=== PATIENT | male | born 1985 | race Caucasian/White ===

== ENCOUNTER → 2017-02-05 | Outpatient (CLI) | payer OTHER ==
--- NOTE | 2017-02-05 14:12 | REP ---
TWO VIEW CHEST: There is no evidence of acute infiltrate. No pleural effusion is seen. The heart is normal in size. The mediastinal silhouette is unremarkable. The visualized osseous structures are intact. IMPRESSION: No acute pulmonary disease. Signed by Laurent Damon MD 02/05/2017 04:53 P
== END ==
LOC: M WUC 13:30
PROVIDERS: ATTEND Physician Assistant
DX: R05 Cough (principal)

== ENCOUNTER → 2019-09-14 | Outpatient (CLI) | payer OTHER ==
[~2019-09-14] MED LIST: METHACHOLINE KIT (J7674) INH ONE
--- NOTE | 2019-09-14 13:30 | PFTRPT ---
Height: 71.00 Inches Weight: 210.00 Lbs BSA: 2.15 Diagnosis: R06.02 DATE OF PROCEDURE: 09/14/2019 ORDERED BY: Dr. Gordon Simmons Spirometry: Pre and post bronchodilator study of excellent technical quality. Forced vital capacity normal. FEV1 out of proportion. Obstructive index is, therefore, reduced. Flow Volume Loop: Expiratory limb of the flow volume loop does suggest some degree of flow rate limitation. Favorable bronchodilator response is identified. Lung Volumes: Total lung capacity mildly elevated. Residual volume borderline for air trapping. Diffusing Capacity: Diffusing capacity normal. Hemoglobin: No hemoglobin available for correction. Airway Mechanics: Airway resistance and conductance are normal. IMPRESSION: Mild obstructive ventilatory impairment with bronchodilator response. Cannot rule out concomitant degree of air trapping. Please correlate clinically. MTDD
== END ==
LOC: M CARPUL 12:32
PROVIDERS: ATTEND Family Medicine
DX: R06.02 Shortness of breath (principal)
CPT/HCPCS: 88738; 94060; 94726; 94729; J7674

== ENCOUNTER → 2021-07-23 | Outpatient (REF) | payer BC ==
[2021-07-23 16:20] LABS: APPEARANCE, URINE CLEAR (CLEAR); BILIRUBIN, URINE AUTO NEGATIVE (NEGATIVE); BLOOD, URINE BLOOD NEGATIVE (NEGATIVE); COLOR, URINE YELLOW (YELLOW); GLUCOSE, URINE (UA) AUTO NEGATIVE (NEGATIVE); KETONE, URINE AUTO NEGATIVE (NEGATIVE); LEUKOCYTE ESTERASE, URINE AUTO NEGATIVE (NEGATIVE); NITRITE, URINE AUTO NEGATIVE (NEGATIVE); PROTEIN, URINE AUTO NEGATIVE (NEGATIVE); SPECIFIC GRAVITY URINE AUTO 1.028 (1.002-1.035); UROBILINOGEN, URINE AUTO 0.2 mg/dL (0.0-2.0)
[2021-07-23 16:42] LABS: BACTERIA, URINE AUTO NEGATIVE (NEGATIVE); MUCUS, URINE SMALL (NEGATIVE); RBC, URINE AUTO 1 /HPF (0-3); SQUAMOUS EPITHELIAL CELL UR AU 0 /HPF (0-6); WBC, URINE AUTO 0 /HPF (0-3)
[2021-07-23 17:00] LABS: TOTAL PROTEIN,RANDOM URINE 16.7 MG/DL (0.0-12.0)
[2021-07-23 17:04] LABS: BLOOD UREA NITROGEN 19 MG/DL (7-18); CALCIUM LEVEL 9.3 MG/DL (8.5-10.1); CARBON DIOXIDE LEVEL 28 MEQ/L (21-32); CHLORIDE LEVEL 103 MEQ/L (98-107); COMPLEMENT C3 125 MG/DL (90-180); COMPLEMENT C4 32 MG/DL (10-40); CREATININE FOR GFR 0.82 MG/DL (0.70-1.30); GLOMERULAR FILTRATION RATE > 60.0 (>60); GLUCOSE, FASTING 67 MG/DL (70-100); IRON (FE) 94 UG/DL (65-175); MAGNESIUM LEVEL 2.1 MG/DL (1.8-2.4); POTASSIUM SERUM 3.7 MEQ/L (3.5-5.1); SODIUM LEVEL 138 MEQ/L (136-145)
[2021-07-23 17:06] LABS: TOTAL 25(OH) VITAMIN D 19.1 NG/ML (30.0-100.0); VITAMIN B12 LEVEL 859 PG/ML (247-911)
== END ==
LOC: M SFHCRHEU 14:17
PROVIDERS: ATTEND Internal Medicine
DX: R76.8 Other specified abnormal immunological findings in serum (principal)

== ENCOUNTER → 2021-09-30 | Outpatient (CLI) | payer BC ==
[~2021-09-30] MED LIST changes: +BUPR150T12 PO; +BUPR300T92 PO; +FLUT1BLS5 INH; +GUAN1TAB16 PO; -METHACHOLINE KIT (J7674) INH ONE; +VENTAER INH; +VYVA20CA PO
== END ==
LOC: M LABSMTC 09:18
PROVIDERS: ATTEND Anesthesiology
DX: Z01.812 Encounter for preprocedural laboratory examination (principal); Z11.52 Encounter for screening for COVID-19

== ENCOUNTER 2021-10-04 13:01 | Day surgery (SDC) | payer BC ==
[~2021-10-04] VITALS: Ht 182.9 cm; Wt 97.9 kg
[~2021-10-04 13:01] MED LIST changes: +NS 1,000 ML IV ONE
--- OUTSIDE RECORDS SUMMARY | 2021-10-04 13:06 | CCD ---
Author Author [employer] Organization [employer] Address Unknown Phone Unavailable Care Team Providers Care Brim Blocker Name Role Phone Ijeoma Barbosa Unavailable PROBLEMS Type Condition ICD9-CM Code [id number] Code Onset Dates Condition S tatus W/U Status Risk SNOMED Code Notes Problem Paresthesia R20.2 Active confirmed 89428016 Problem Chronic fatigue R53.82 Active confirmed 8422 9002 ALLERGIES Allergen (clinical drug ingredient) Drug/Non Drug Allergy do cumented on EMR Reaction Allergy Type Onset Date Status Enviormental Unknown Non Drug Allergy Active penicillin V Penicillin Unknown Drug Allergy Active penicillin G Penicillin G Sodium([facility] Code:[address]-66) Unknown D rug Allergy Active ENCOUNTERS from 1984 to 2021-08-08 Encounter Location Date Provider Diagnosis [facility] Rheumatology [address] [place] [address] [place] [address] Jul, [facility] Positive ENZO (antinuclear an tibody) R76.8 ; Shoulder pain, unspecified chronicity, unspecified laterality M25.519 ; Neck pain M54.2 ; Chronic fatigue R53.82 and Paresthesia R20.2 IMMUNIZATIONS No Information SOCIAL HISTORY Tobacco Use: Social History Observation Description Date Details (start date - stop date) Never Smoker Sex Assigned At : Social History Observation Description Sex Assigned At Unknown Alcohol Screening: Question Answer Notes Did you have a drink containing alcohol in the past year? No Points 0 Interpretation Negative Tobacco Use: Question Answer Notes Are you a: never smoker REASON FOR REFERRAL from 1984 to 2021-08-08 Reason EMG of bilateral upper extre mities Diagnosis 1 Paresthesia (R20.2) Referral Organization [facility] Rheumatology Referring Provider First Name Ijeoma Referring Provider Last Name [place] Referring Provider Specialty Rheumatology Referred Provider Leslye Duran Referred Provider Specialty Neurology Referral Priority Routine General Notes Elia Guerar 07/26/2021 1:34:51 PM > Referral has been fax with attachments Clinical Notes Ijeoma Barbosa 07/23/2021 2:04 :43 PM > Please perform a EMG of bilateral upper extremities for further investigation of paresthesias. VITAL SIGNS Weight 224.0 lbs Jul, Weight-kg 101.61 kg Jul, Height 70 in Jul, BMI 32.14 kg/m2 Jul, Heart Rate 80 /min Jul, Respiratory Rate 20 /min Jul, Temperature 98.0 degrees Fahrenheit Jul, Oximetry 96 Jul, Blood pressure systolic 126 mm Hg Jul, Blood pressure diastolic 88 mm Hg Jul, MEDICATIONS Medication SIG (Take, Route, Frequency, Duration) Notes Start Da te End Date Status Viagra 100 MG 1 tablet as needed Orally Once a day for 30 day(s) Active ProAir HFA 108 (90 Base) mcg/act 2 puffs as needed Inh alation qid prn for 90 day(s) Active Adderall XR 10 MG 1 capsule in the morning Orally Once a day Active Advair Diskus 250-50 MCG/DOSE 1 puff Inhalation Twice a day Active PROCEDURES No Information RESULTS Component Value Reference Range COMPLEMENT C3 Reviewed date:07/24/2021 19:22:03 Interpretation: Performing Lab:[facility] LABORATORY [address] [facility] [address] , ,[place] [address] COMPLEMENT C3 125 90-180 COMPLEMENT C4 Reviewed date:07/24/2021 19:22:03 Interpretation: Performing Lab:[facility] LABORATORY [address] [address] [facility] [address] , ,[facility] COMPLEMENT C4 32 10-40 IRON (FE) Reviewed date:07/24/2021 19:22:03 Interpretation: Performing Lab:[facility] LABORATORY [address] [facility] [address] , ,[facility] IRON (FE) 94 65-175 Basic Metabolic Profile (BMP) Reviewed date:07/24/2021 19:22:03 Interpretation: Performing Lab:[facility] LABORATORY [address] [place] [address] , ,[place] [address] GLUCOSE, FASTING 67 70-100 BLOOD UREA NITROGEN 19 7-18 CREATININE FOR GFR 0.82 0.70-1.30 GLOMERULAR FILTRATION RATE > 60.0 >60 SODIUM LEVEL 138 136-145 POTASSIUM SERUM 3.7 3.5-5.1 CHLORIDE LEVEL 103 98-107 CARBON DIOXIDE LEVEL 28 21-32 CALCIUM LEVEL 9.3 8.5-10.1 MAGNESIUM LEVEL Reviewed date:07/24/2021 19:22:03 Interpretation: Performing Lab:[facility] LABORATORY [address] [place] [address] , ,[place] [address] MAGNESIUM LEVEL 2.1 1.8-2.4 TSH Reviewed date:07/24/2021 19:22:03 Interpretation: Performing Lab:[facility] LABORATORY [address] [place] [address] , ,[place] [address] THYROID STIMULATING HORMONE 2.070 0.358-3.740 UA URINALYSIS Reviewed date:07/24/2021 19:22:03 Interpretation: Performing Lab:[facility] LABORATORY [address] [place] [address] , ,[place] [address] CREATININE,RANDOM URINE Reviewed date:07/24/2021 19:22:03 Interpretation: Performing Lab:[facility] LABORATORY [address] [place] [address] , ,[place] [address] CREATININE,RANDOM URINE 230.0 TOTAL PROTEIN,RANDOM URINE Reviewed date:07/24/2021 19:22:03 Interpretation: Performing Lab:[facility] LABORATORY [address] [place] [address] , ,[place] [address] TOTAL PROTEIN,RANDOM URINE 16.7 0.0-12.0 VITAMIN B12 LEVEL Reviewed date:07/24/2021 19:22:03 Interpretation: Performing Lab:[facility], [facility] LABORATORY [address] [facility] [address] [facility] [address] , ,[place] [address] VITAMIN B12 LEVEL 871 922-171 REASON FOR VISIT C/o inflammation in the joints. C/o bilateral foot pain. C/o bilateral arm and s houlder joint have a burning sensation. Patient states that "somtimes feels like his joints are itching". MEDICAL (GENERAL) HISTORY Type Description Date Medical History Anxiety disorder Medical History Alcohol dependence, uncomplicated Medical History Abnormal levels of other serum enzymes Medical History Chronic obstructive pulmonary disease, u nspecified Medical History Male erectile dysfunction, unspecified Surgical History None per the patient asked on 07/23/2021 Hospitalization History None per the patient asked on 2020 Goals Section No Information Health Concerns No Information MEDICAL EQUIPMENT No Information MENTAL STATUS No Information FUNCTIONAL STATUS No Information ASSESSMENTS Encounter Date Diagnosis Assessment Notes Treatment Notes Treatm ent Clinical Notes Jul, Positive ENZO (antinuclear antibody) (ICD-10 - R7 6.8) Will perform further investigation of a possible underlying autoimmune disease, given the findings of a positive ENZO (1:160) and fatigue. Based on the symptomatology, physical examination, and current laboratory evaluation, will perform AVISE testing (specialized autoimmune rheumatic disease test) for further evaluation. Will also obtain CBC w/ diff, complement levels (C3, C4, CH50), lupus anticoagulant, urinalysis, and urine protein:creatinine ratio. Jul, Shoulder pain, unspecified c hronicity, unspecified laterality (ICD- 10 - M25.519) Given the significant shoulder pain, will proceed with imaging for further evaluation. Jul, Neck pain (ICD-10 - M54.2) Given the significant cervical spine pain, will proceed with imaging for further evaluation. Jul, Chronic fatigue (ICD-10 - R53.82) Given the significant fatigue, will perform further investigation to evaluate the underlying etiology. Will evaluate for nutritional deficiencies (magnesium, vitamin B12, vitamin D, iron, abnormal thyroid function (TSH), electrolyte abnormalities (BMP). Will consider a sleep study and sleep medicine referral, if appropriate. Jul, Paresthesia (ICD-10 - R20.2) Given the paresthesias of the upper extremities, will perform an EMG for further evaluation. Jul, Other The total time spent on the date of the encounter: 76 minutes PLAN OF TREATMENT Treatment Notes Assessment Notes Clinical Notes Positive ENZO (antinuclear antibody) Will perform further investigation of a possible underlying autoimmune disease, given the findings of a positive ENZO (1:160) and fatigue. Based on the symptomatology, physical examination, and current laboratory evaluation, will perform AVISE testing (specialized autoimmune rheumatic disease test) for further evaluation. Will also obtain CBC w/ diff, complement levels (C3, C4, CH50), lupus anticoagulant, urinalysis, and urine protein:creatinine ratio. Shoulder pain, unspecified chronicity, unspecified lateralit y Given the significant shoulder pain, will proceed with imaging for further evaluation. Neck pain Given the significan t cervical spine pain, will proceed with imaging for further evaluation. Chronic fatigue Given the significan t fatigue, will perform further investigation to evaluate the underlying etiology. Will evaluate for nutritional deficiencies (magnesium, vitamin B12, vitamin D, iron, abnormal thyroid function (TSH), electrolyte abnormalities (BMP). Will consider a sleep study and sleep medicine referral, if appropriate. Paresthesia Given the paresthesi as of the upper extremities, will perform an EMG for further evaluation. Treatment Notes Test Name Order Date COMPLEMENT TOTAL (CH50) 2021-07-23 LUPUS TYPE ANTICOAGULANT SCREE 2021-07-23 MISCELLANEOUS TEST LAB 2021-07-23 [facility] Shoulder, complete 2021-07-23 [facility] SPINE CERVICAL W/AP/FLEX/EXT 2021-07-23 VITAMIN D 25-HYDROXY 2021-07-23 Referrals Referral Date Details EMG of bilateral upper extre mities, Leslye Roger Next Appt Details Provider Name:Ijeoma Barbosa, 2021-08-27 04:45:00 PM, [address] [place] [address], , [place], [address], Insurance Providers Payer Name Payer Address Payer Phone Insured Name Patient Relati onship to Insured Coverage Start Date Coverage End Date ROSALIND THORNTON O [id number] [facility] [place] [facility] CATHI QULIES
--- OUTSIDE RECORDS SUMMARY | 2021-10-04 13:06 | CCD | Continuity of Care Document ---
Author Author Epifanio SIMMONS M.D. Organization Unknown Address [address] [place] [address] Phone [phone] Care Team Providers Care Accounts Payable Assistant Name Role Phone Gordon Simmons M.D. AUTM [phone] [facility] Cardiopulmonary/Sleep Lab AUTM [phone] [facility] Nutrition Services AUTM [phone] Ej Barnhart MD AUTM [phone] [facility] Nurse Practitioners AUTM [facility] Gastroenterology AUTM [phone] [facility] Rheumatology AUTM [phone] Problems Active Problems Provider Date Alcohol dependence, uncomplicated Trenton Thomas PA-C Onset: 05/14/2018 Anxiety state Trenton Thomas PA-C Onset: 05/14/2018 Social History Type Date Description Comments Sex Unknown Tobacco Use Start: Unknown End: Unknown Quit Tobacco Use Start: Unknown Never Smoked Cigars Tobacco Use Start: Unknown Never Smoked A Pipe Tobacco Use Start: Unknown Never Used Smokeless Tobacco ETOH Use Occasionally consumes alcohol Recreational Drug Use Current Drug User occasion al marajana Tobacco Use Start: Unknown End: Unknown Patient is a former smoker Allergies and adverse reactions Active Allergies Criticality Reaction | Severity Comments Date Penicillin G Unable to assess criticality HIVES 04/09/2018 Penicillin Unable to assess criticality Hives | Severe 09/06/2019 Environmental Unable to assess criticality 04/09/2018 NKFA Unable to assess criticality 09/06/2019 NKFA Unable to assess criticality 04/09/2018 NKEA Unable to assess criticality 09/06/2019 Medications Active Medications SIG Qnty Indications Ordering Provide r Date Advair Diskus 250-50mcg/Dose Aeros ol inhale one puff by mouth twice a day 60units J44.9 Gordon jacques MD 11/29/2020 Viagra 100mg Tablets max 1 tab by mouth every day as needed 30-90 min before sexual activity 14tabs N52.1 Gordon Simmons MD 12/01/2019 N52.9 Proair HFA 108(90Base) mcg/Act Aer osol 1-2 puff inhalation q6 rhs as needed 25.5gm J44.9 Gordon Simmons MD 09/06/2019 J45.901 Wellbutrin SR 150mg Tablets ER 12H R 1 by mouth twice a day F41.9 Unknown History Medications Prednisone 20mg Tablets 2 tab by mouth daily for 5 days 10tabs J45.901 Gordon Simmons MD 06/12/2021 - 06/17/2021 Zithromax Z-Ricci 250mg Tablets take 2 tablets by mouth on day one, take one tablet daily for 4 days thereafter 6tabs J45.901 Gordon Simmons MD 06/12/2021 - 06/17/2021 Immunizations Description No Information Available Vital Signs Date Vital Result Comment 02/12/2021 7:30am BP Systolic 128 mmHg BP Diastolic 66 mmHg Heart Rate 78 /min Body Temperature 97.2 F Respiratory Rate 18 /min O2 % BldC Oximetry 96 % Weight 231.00 lb Weight 104.782 kg Height 71 inches 5'11" BMI (Body Mass Index) 32.2 kg/m2 BSA (Body Surface Area) 2.24 m2 01/08/2021 12:58pm BP Systolic 122 mmHg BP Diastolic 80 mmHg Heart Rate 69 /min Body Temperature 96.2 F Respiratory Rate 18 /min O2 % BldC Oximetry 98 % Weight 232.00 lb Weight 105.235 kg Height 71 inches 5'11" BMI (Body Mass Index) 32.4 kg/m2 BSA (Body Surface Area) 2.25 m2 Results Test Acquired Date Facility Test Result H/L Range Note Coronavirus 2019 Nasopharygeal 09/30/2021 [facility] Coronavirus 2019 Nasopharygeal ASSAY INFORMATIO <SEE NOTE> 1 1 ASSAY INFORMATION: Real Time RT-PCR NOTE: The COVID-19 assay has been cleared by the U.S. Food and Drug Administration under the Emergency Use Authorization (EUA). [facility] and [email or web address] are designated as high complexity laboratories by the Clinical Laboratory Improvement Amendments of 1988(CLIA) and are qualified to perform this test. Not Detected Procedures Date Code Description Status 06/12/2021 00683 Office/Outpatient Established Lo w MDM 20-29 Min Completed Medical Devices Description No Information Available Encounters Description No Information Available Assessments Date Code Description Provider 06/12/2021 J06.9 Acute upper respiratory infectio n, unspecified Gordon Simmons MD 06/12/2021 J45.901 Unspecified asthma with (acute) exacerbation Gordon Simmons MD Plan of Treatment Future Appointment(s):* 10/03/2021 3:00 pm - Gordon Simmons MD at [facility] 06/12/2021 - Gordon Simmons MD* J06.9 Acute upper respiratory infection, unspecified* New Labs:* Covid-19, Ordered: 06/12/21 * Comments:* Likely viral. Less likely COVID but will have him checked for COVID infection. Advised to start symptomatic care. He was advised to start Prednisone for 5 days and Zpack. Advised to start using his Albuterol Q4 hrs for next 2 days then as needed. Advised to go to ER for Eval if he does not improve over next few days. He will come in to clinic for COVID screen. He was advised to stay in his vehicle and call us for COVID swab. * J45.901 Unspecified asthma with (acute) exacerbation* New Medication:* Prednisone 20 mg - 2 tab by mouth daily for 5 days * Zithromax Z-Ricci 250 mg - take 2 tablets by mouth on day one, take one tablet daily for 4 days thereafter * Comments:* Likely viral illness affecting his Asthma. Prednisone given to help her breathing. Functional Status Description No Information Available Mental Status Description No Information Available Referrals Description No Information Available
--- OUTSIDE RECORDS SUMMARY | 2021-10-04 13:06 | CCD ---
Author Author [facility] Organization [facility] [employer] Address Unknown Phone Unavailable Care Team Providers Care Machine Icer Name Role Phone Ijeoma Barbosa Unavailable PROBLEMS Type Condition ICD9-CM Code [id number] Code Onset Dates Condition S tatus W/U Status Risk SNOMED Code Notes Problem Paresthesia R20.2 Active confirmed 87739539 Problem Chronic fatigue R53.82 Active confirmed 8422 9000 ALLERGIES Allergen (clinical drug ingredient) Drug/Non Drug Allergy do cumented on EMR Reaction Allergy Type Onset Date Status Enviormental Unknown Non Drug Allergy Active penicillin V Penicillin Unknown Drug Allergy Active penicillin G Penicillin G Sodium([facility] Code:[address]-27) Unknown D rug Allergy Active ENCOUNTERS from 1984 to 2021-09-02 Encounter Location Date Provider Diagnosis [facility] Rheumatology [address] [place] [address] [place] [address] Sep, [facility] IMMUNIZATIONS No Information SOCIAL HISTORY Tobacco Use: [...] you a: never smoker REASON FOR REFERRAL No Information VITAL SIGNS No information MEDICATIONS Medication SIG (Take, Route, Frequency, Duration) [...] a day Active PROCEDURES No Information RESULTS No Results REASON FOR VISIT Missing EMG & xrays MEDICAL (GENERAL) HISTORY Type Description Date Medical [...] No Information FUNCTIONAL STATUS No Information ASSESSMENTS No Information PLAN OF TREATMENT Next Appt Details Provider Name:Ijeoma Barbosa, 2021-10-14 04:15:00 PM, [address] [place] [address], , [place], [place], [facility], Insurance Providers Payer Name Payer Address Payer Phone Insured Name Patient Relati onship to Insured Coverage Start Date Coverage End Date BCBS FAUSTO THORNTON PPO [phone] [facility] [employer] [facility] [place] [address] CATHI QUILES
--- OUTSIDE RECORDS SUMMARY | 2021-10-04 13:06 | CCD | Continuity of Care Document ---
Author Author Epifanio DURAN M.D. Organization Unknown Address [address] [place] [address] Phone [phone] Care Team Providers Care Rivet Hole Machine Operator Name Role Phone Ijeoma Barbosa M.D. AUTM [phone] Gordon Simmons M.D. AUTM [phone] Problems Description No Information Available Social History Type Date Description Comments Sex Unknown Allergies and adverse reactions Description No Information Available Medications Description No Information Available Immunizations Description No Information Available Vital Signs Description No Information Available Results Description No Information Available Procedures Date Code Description Status 09/12/2021 08627 Nerve Conduction 13+ Studies Com pleted 09/12/2021 66708 Needle Electromyogra phy Non Extremity Done With Nerve Conduction Completed 09/12/2021 96113 Needle Electromyogra phy Non Extremity Done With Nerve Conduction Completed 09/12/2021 47641 Needle Electromyography Complete , Five Or More Muscles Studied Completed 09/12/2021 83968 Needle Electromyography Complete , Five Or More Muscles Studied Completed Medical Devices Description No Information Available Encounters Description No Information Available Assessments Date Code Description Provider 09/12/2021 G56.00 Carpal tunnel syndrome, unspecif ied upper limb Leslye Duran M.D. 09/12/2021 M54.12 Radiculopathy, cervical region A jefferson Duran M.D. 09/12/2021 M54.2 Cervicalgia Meliton Smiley 09/12/2021 R20.2 Paresthesia of skin Leslye Duran M.D. Plan of Treatment No Information Available Functional Status Description No Information Available Mental Status Description No Information Available Referrals Description No Information Available
--- OUTSIDE RECORDS SUMMARY | 2021-10-04 13:06 | CCD ---
Author Author [facility] [employer] Organization [facility] [employer] Address Unknown Phone Unavailable Care Team Providers Care Film Reader Name Role Phone Ijeoma Barbosa Unavailable PROBLEMS Type Condition ICD9-CM Code [id number] Code Onset Dates Condition S tatus W/U Status Risk SNOMED Code Notes Problem Paresthesia R20.2 Active confirmed 05226077 Problem Chronic fatigue R53.82 Active confirmed 8422 9007 ALLERGIES Allergen (clinical drug ingredient) Drug/Non Drug Allergy do cumented on EMR Reaction Allergy Type Onset Date Status Enviormental Unknown Non Drug Allergy Active penicillin V Penicillin Unknown Drug Allergy Active penicillin G Penicillin G Sodium([facility] Code:[address]-46) Unknown D rug Allergy Active ENCOUNTERS from 1984 to 2021-08-31 Encounter Location Date Provider Diagnosis [facility] Rheumatology [address] [place] [address] [place] [address] Aug, [facility] IMMUNIZATIONS No Information SOCIAL HISTORY Tobacco Use: [...] Information RESULTS No Results REASON FOR VISIT REFERRAL TO NEUROLOGY MEDICAL (GENERAL) HISTORY Type Description Date Medical [...] TREATMENT Next Appt Details Provider Name:Ijeoma Barbosa, 2021-09-03 04:15:00 PM, [address] [place] [address], , [place], [place], [facility], Insurance Providers Payer Name Payer Address Payer Phone Insured Name Patient Relati onship to Insured Coverage Start Date Coverage End Date BCBS FAUSTO THORNTON O [phone] [facility] [employer] [facility] [place] [address] CATHI QUILES
--- OUTSIDE RECORDS SUMMARY | 2021-10-04 13:06 | CCD ---
Author Author [facility] [employer] Organization [facility] [employer] Address Unknown Phone Unavailable Care Team Providers Care Institutional Commodity Analyst Name Role Phone Ijeoma Barbosa Unavailable PROBLEMS Type Condition ICD9-CM Code [id number] Code Onset Dates Condition S tatus W/U Status Risk SNOMED Code Notes Problem Paresthesia R20.2 Active confirmed 41358955 Problem Chronic fatigue R53.82 Active confirmed 8422 9003 ALLERGIES Allergen (clinical drug ingredient) Drug/Non Drug Allergy do cumented on EMR Reaction Allergy Type Onset Date Status Enviormental Unknown Non Drug Allergy Active penicillin V Penicillin Unknown Drug Allergy Active penicillin G Penicillin G Sodium([facility] Code:[address]-97) Unknown D rug Allergy Active ENCOUNTERS from 1984 to 2021-08-26 Encounter Location Date Provider Diagnosis [facility] Rheumatology [address] [place] [address] [place] [address] Aug, [facility] IMMUNIZATIONS No Information SOCIAL HISTORY Tobacco Use: [...] Information RESULTS No Results REASON FOR VISIT 08/27/2021 Appointment MEDICAL (GENERAL) HISTORY Type Description Date Medical [...] Details Provider Name:Ijeoma Barbosa, 2021-09-03 04:15:00 PM, [address] [place] [address], , [place], [place], [facility], Insurance Providers Payer Name Payer Address Payer Phone Insured Name Patient Relati onship to Insured Coverage Start Date Coverage End Date BCBS FAUSTO THORNTON PPO [phone] [facility] [employer] [facility] [place] [address] CATHI QUILES
--- OUTSIDE RECORDS SUMMARY | 2021-10-04 13:07 | CCD ---
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 Role Phone KENNY MONTEJO MD Unavailable Unavailable KENNY MONTEJO MD Unavailable Unavailable KENNY MONTEJO MD Unavailable Unavailable KENNY MONTEJO MD Unavailable Unavailable KENNY MONTEJO MD Unavailable Unavailable KENNY MONTEJO MD Unavailable Unavailable KENNY MONTEJO MD Unavailable Unavailable KENNY MONTEJO MD Unavailable Unavailable KENNY MONTEJO MD Unavailable Unavailable KENNY MONTEJO MD Unavailable Unavailable KENNY MONTEJO MD Unavailable Unavailable KENNY MONTEJO MD Unavailable Unavailable KENNY MONTEJO MD Unavailable Unavailable KENNY MONTEJO MD Unavailable Unavailable KENNY MONTEJO MD Unavailable Unavailable KENNY MONTEJO MD Unavailable Unavailable KENNY MONTEJO MD Unavailable Unavailable KENNY MONTEJO MD Unavailable Unavailable KENNY MONTEJO MD Unavailable Unavailable KENNY MONTEJO MD Unavailable Unavailable KENNY MOTNEJO MD Unavailable Unavailable KENNY MONTEJO MD Unavailable Unavailable KENNY MONTEJO MD Unavailable Unavailable KENNY MONTEJO MD Unavailable Unavailable KENNY MONTEJO MD Unavailable Unavailable KENNY MONTEJO MD Unavailable Unavailable KENNY MONTEJO MD Unavailable Unavailable KENNY MONTEJO MD Unavailable Unavailable KENNY MONTEJO MD Unavailable Unavailable KENNY MONTEJO MD Unavailable Unavailable KENNY MONTEJO MD Unavailable Unavailable KENNY MONTEJO MD Unavailable Unavailable KENNY MONTEJO MD Unavailable Unavailable MONTEJO, KENNY MD Unavailable Unavailable MONTEJO, KENNY MD Unavailable Unavailable MONTEJO, KENNY MD Unavailable Unavailable MONTEJO, KENNY MD Unavailable Unavailable MONTEJO, KENNY MD Unavailable Unavailable MONTEJO, KENNY MD Unavailable Unavailable MONTEJO, KENNY MD Unavailable Unavailable MONTEJO, KENNY MD Unavailable Unavailable MONTEJO, KENNY MD Unavailable Unavailable MONTEJO, KENNY MD Unavailable Unavailable MONTEJO, KENNY MD Unavailable Unavailable MONTEJO, KENNY MD Unavailable Unavailable MONTEJO, KENNY MD Unavailable Unavailable MONTEJO, KENNY MD Unavailable Unavailable MONTEJO, KENNY MD Unavailable Unavailable MONTEJO, KENNY MD Unavailable Unavailable MONTEJO, KENNY MD Unavailable Unavailable MONTEJO, KENNY MD Unavailable Unavailable MONTEJO, KENNY MD Unavailable Unavailable MONTEJO, KENNY MD Unavailable Unavailable MONTEJO, KENNY MD Unavailable Unavailable MONTEJO, KENNY MD Unavailable Unavailable MONTEJO, KENNY MD Unavailable Unavailable MONTEJO, KENNY MD Unavailable Unavailable MONTEJO, KENNY MD Unavailable Unavailable MONTEJO, KENNY MD Unavailable Unavailable MONTEJO, KENNY MD Unavailable Unavailable MONTEJO, KENNY MD Unavailable Unavailable MONTEJO, KENNY MD Unavailable Unavailable MONTEJO, KENNY MD Unavailable Unavailable MONTEJO, KENNY MD Unavailable Unavailable MONTEJO, KENNY MD Unavailable Unavailable MONTEJO, KENNY MD Unavailable Unavailable MONTEJO, KENNY MD Unavailable Unavailable MONTEJO, KENNY MD Unavailable Unavailable MONTEJO, KENNY MD Unavailable Unavailable MONTEJO, KENNY MD Unavailable Unavailable MONTEJO, KENNY MD Unavailable Unavailable MONTEJO, KENNY MD Unavailable Unavailable TIFFANIE, MAQBOOL PREMA MD Unavailable Unavailable TIFFANIE, MAQBOOL PREMA MD Unavailable Unavailable TIFFANIE, MAQBOOL PREMA MD Unavailable Unavailable TIFFANIE, MAQBOOL PREMA MD Unavailable Unavailable TIFFANIE, MAQBOOL PREMA MD Unavailable Unavailable TIFFANIE, MAQBOOL PREMA MD Unavailable Unavailable TIFFANIE, MAQBOOL PREMA MD Unavailable Unavailable TIFFANIE, MAQBOOL PREMA MD Unavailable Unavailable TIFFANIE, MAQBOOL PREMA MD Unavailable Unavailable TIFFANIE, MAQBOOL PREMA MD Unavailable Unavailable TIFFANIE, MAQBOOL PREMA MD Unavailable Unavailable TIFFANIE, MAQBOOL PREMA MD Unavailable Unavailable TIFFANIE, MAQBOOL PREMA MD Unavailable Unavailable TIFFANIE, MAQBOOL PREMA MD Unavailable Unavailable TIFFANIE, MAQBOOL PREMA MD Unavailable Unavailable TIFFANIE, MAQBOOL PREMA MD Unavailable Unavailable TIFFANIE, MAQBOOL PREMA MD Unavailable Unavailable TIFFANIE, MAQBOOL PREMA MD Unavailable Unavailable TIFFANIE, MAQBOOL PREMA MD Unavailable Unavailable TIFFANIE, MAQBOOL PREMA MD Unavailable Unavailable TIFFANIE, MAQBOOL PREMA MD Unavailable Unavailable TIFFANIE, MAQBOOL PREMA MD Unavailable Unavailable TIFFANIE, MAQBOOL PREMA MD Unavailable Unavailable TIFFANIE, MAQBOOL PREMA MD Unavailable Unavailable TIFFANIE, MAQBOOL PREMA MD Unavailable Unavailable TIFFANIE, MAQBOOL PREMA MD Unavailable Unavailable TIFFANIE, MAQBOOL PREMA MD Unavailable Unavailable TIFFANIE, MAQBOOL PREMA MD Unavailable Unavailable TIFFANIE, MAQBOOL PREMA MD Unavailable Unavailable TIFFANIE, MAQBOOL PREMA MD Unavailable Unavailable TIFFANIE, MAQBOOL PREMA MD Unavailable Unavailable TIFFANIE, MAQBOOL PREMA MD Unavailable Unavailable TIFFANIE, MAQBOOL PREMA MD Unavailable Unavailable TIFFANIE, MAQBOOL PREMA MD Unavailable Unavailable TIFFANIE, MAQBOOL PREMA MD Unavailable Unavailable TIFFANIE, MAQBOOL PREMA MD Unavailable Unavailable TIFFANIE, MAQBOOL PREMA MD Unavailable Unavailable TIFFANIE, MAQBOOL PREMA MD Unavailable Unavailable TIFFANIE, MAQBOOL PREMA MD Unavailable Unavailable TIFFANIE, MAQBOOL PREMA MD Unavailable Unavailable TIFFANIE, MAQBOOL PREMA MD Unavailable Unavailable TIFFANIE, MAQBOOL PREMA MD Unavailable Unavailable TIFFANIE, MAQBOOL PREMA MD Unavailable Unavailable TIFFANIE, MAQBOOL PREMA MD Unavailable Unavailable TIFFANIE, MAQBOOL PREMA MD Unavailable Unavailable TIFFANIE, MAQBOOL PREMA MD Unavailable Unavailable TIFFANIE, MAQBOOL PREMA MD Unavailable Unavailable TIFFANIE, MAQBOOL PREMA MD Unavailable Unavailable TIFFANIE, MAQBOOL PREMA MD Unavailable Unavailable TIFFANIE, MAQBOOL PREMA MD Unavailable Unavailable TIFFANIE, MAQBOOL PREMA MD Unavailable Unavailable TIFFANIE, MAQBOOL PREMA MD Unavailable Unavailable TIFFANIE, MAQBOOL PREMA MD Unavailable Unavailable TIFFANIE, MAQBOOL PREMA MD Unavailable Unavailable TIFFANIE, MAQBOOL PREMA MD Unavailable Unavailable TIFFANIE, MAQBOOL PREMA MD Unavailable Unavailable TIFFANIE, MAQBOOL PREMA MD Unavailable Unavailable TIFFANIE, MAQBOOL PREMA MD Unavailable Unavailable TIFFANIE, MAQBOOL PREMA MD Unavailable Unavailable TIFFANIE, MAQBOOL PREMA MD Unavailable Unavailable TIFFANIE, MAQBOOL PREMA MD Unavailable Unavailable TIFFANIE, MAQBOOL PREMA MD Unavailable Unavailable TIFFANIE, MAQBOOL PREMA MD Unavailable Unavailable TIFFANIE, MAQBOOL PREMA MD Unavailable Unavailable TIFFANIE, MAQBOOL PREMA MD Unavailable Unavailable TIFFANIE, MAQBOOL PREMA MD Unavailable Unavailable TIFFANIE, MAQBOOL PREMA MD Unavailable Unavailable TIFFANIE, MAQBOOL PREMA MD Unavailable Unavailable TIFFANIE, MAQBOOL PREMA MD Unavailable Unavailable TIFFANIE, MAQBOOL PREMA MD Unavailable Unavailable TIFFANIE, MAQBOOL PREMA MD Unavailable Unavailable TIFFANIE, MAQBOOL PREMA MD Unavailable Unavailable TIFFANIE, MAQBOOL PREMA MD Unavailable Unavailable TIFFANIE, MAQBOOL PREMA MD Unavailable Unavailable TIFFANIE, MAQBOOL PREMA MD Unavailable Unavailable TIFFANIE, MAQBOOL PREMA MD Unavailable Unavailable TIFFANIE, MAQBOOL PREMA MD Unavailable Unavailable TIFFANIE, MAQBOOL PREMA MD Unavailable Unavailable TIFFANIE, MAQBOOL PREMA MD Unavailable Unavailable Christine BLAND MD Unavailable Unavailable Christine BLAND MD Unavailable Unavailable Christine BLAND MD Unavailable Unavailable Christine BLAND MD Unavailable Unavailable Christine BLAND MD Unavailable Unavailable Christine BLAND MD Unavailable Unavailable Christine BLAND MD Unavailable Unavailable Christine BLAND MD Unavailable Unavailable Christine BLAND MD Unavailable Unavailable Christine BLAND MD Unavailable Unavailable Christine BLAND MD Unavailable Unavailable Christine BLAND MD Unavailable Unavailable EDWINAChristine SR MD Unavailable Unavailable Christine BLAND MD Unavailable Unavailable EDWINAChristine SR MD Unavailable Unavailable EDWINAChristine SR MD Unavailable Unavailable Christine BLAND MD Unavailable Unavailable EDWINAChristine SR MD Unavailable Unavailable EDWINAChristine SR MD Unavailable Unavailable Christine BLAND MD Unavailable Unavailable Re-disclosure Warning The records that you are about to access may contain information from federally-assisted alcohol or drug abuse programs. If such information is present, then the following federally mandated warning applies: This information has been disclosed to you from records protected by federal confidentiality rules (42 CFR part 2). The federal rules prohibit you from making any further disclosure of this information unless further disclosure is expressly permitted by the written consent of the person to whom it pertains or as otherwise permitted by 42 CFR part 2. A general authorization for the release of medical or other information is NOT sufficient for this purpose. The Federal rules restrict any use of the information to criminally investigate or prosecute any alcohol or drug abuse patient.The records that you are about to access may contain highly sensitive health information, the redisclosure of which is protected by Article 27-F of the [facility] Public Health law. If you continue you may have access to information: Regarding HIV / AIDS; Provided by facilities licensed or operated by the [facility] Office of Mental Health; or Provided by the [facility] Office for People With Developmental Disabilities. If such information is present, then the following [facility] mandated warning applies: This information has been disclosed to you from confidential records which are protected by state law. State law prohibits you from making any further disclosure of this information without the specific written consent of the person to whom it pertains, or as otherwise permitted by law. Any unauthorized further disclosure in violation of state law may result in a fine or care home sentence or both. A general authorization for the release of medical or other information is NOT sufficient authorization for further disc losure. Family History Family Member Name Family Member Gender Family Member Status Date o f Status Description Data Source(s) Unknown Unknown Problem [facility] ([facility]) Encounters Encounter Providers Location Date Indications Data Source(s ) Outpatient Attender: KENNY MONTEJO MDConsultant: KENNY King MD 10/03/2021 02:45:00 PM EST - 10/03/2021 02:45:00 PM EST [facility] Outpatient Attender: KENNY MONTEJO MD Family Practice 10/03/2021 0 2:00:00 PM EST [facility] ([facility]) [place] [id number] [facility] [place] [address] 09/02/2021 12:00:00 AM EDT eCW1 ([facility]) Unknown [id number] [facility] [facility] [address] 08/26/2021 12:00:00 AM EDT eCW1 ([facility]) Unknown [address] [facility] [address] 08/22/2021 12:00:00 AM EDT eCW1 ([facility]) Outpatient [id number] [facility] [address] 07/23/2021 12:00:00 AM EDT eCW1 ([facility]) Emergency Attender: ROSELINE BLAND MDConsultant: KENNY King MD 07/20/2021 03:33:00 PM EDT - 07/20/2021 04:13:00 PM EDT [facility] Patient discharged. Outpatient Attender: KENNY MONTEJO MDConsultant: KENNY King MD 06/12/2021 09:02:00 AM EDT - 06/12/2021 09:02:00 AM EDT [facility] Outpatient Attender: KENNY MONTEJO MD Family Practice 06/12/2021 0 9:00:00 AM EDT [facility] ([facility]) Outpatient Attender: KENNY MONTEJO MDConsultant: KENNY King MD 02/12/2021 07:22:00 AM EDT - 02/12/2021 07:22:00 AM EDT [facility] Outpatient Attender: KENNY MONTEJO MD Family Practice 02/12/2021 0 7:20:00 AM EDT [facility] ([facility]) Outpatient Attender: KENNY MONTEJO MDConsultant: KENNY King MD 01/08/2021 12:54:00 PM EST - 01/08/2021 12:54:00 PM EST [facility] Outpatient Attender: KENNY MONTEJO MD Family Practice 01/08/2021 1 2:00:00 PM EST [facility] ([facility]) Outpatient Attender: KENNY MONTEJO MDConsultant: KENNY King MD 12/25/2020 07:24:00 AM EST - 12/25/2020 08:24:00 AM EST [facility] Outpatient Attender: KENYN MONTEJO MDConsultant: KENNY King MD 12/24/2020 07:59:00 AM EST - 12/24/2020 07:59:00 AM [facility] Outpatient Attender: KENNY MONTEJO MD Family Practice 12/24/2020 0 7:00:00 AM EST [facility] ([facility]) Outpatient Attender: PREMA BARNHART MD [facility] 11/14 01:45:00 PM EST [facility] (Prema Barnhart MD) Outpatient Attender: KENNY MONTEJO MDConsultant: KENNY King MD 10/31/2020 10:27:00 AM EST - 10/31/2020 10:27:00 AM [facility] Medications Medication Brand Name Start Date Product Form Dose Route Admi nistrative Instructions Pharmacy Instructions Status Indications Reaction Description Data Source(s) 2 mg 09/25/2021 12:00:00 AM EST tablet extended release 24 hr 30 TAKE ONE TABLET BY MOUTH AT BEDTIME TAKE ONE TABLET BY MOUTH AT BEDTIME SOLD: 09/27/2021 [facility] 30 mg 09/25/2021 12:00:00 AM EST capsule 30 TAKE ONE CAPSULE BY MOUTH EVERY MORNING - MAXIMUM DAILY DOSE = 1 TAKE ONE CAPSULE BY MOUTH EVERY MORNING - MAXIMUM DAILY DOSE = 1 SOLD: 09/27/2021 [facility] Citric Acid 75 MG/ML / Magnesium Oxide 2 1.9 MG/ML / picosulfate sodium 0.0625 MG/ML Oral Solution [Clenpiq] 10 mg-3.5 gram -12 gram/160 mL SOD PICOSULF/MAG OX/CITRIC AC 09/13/2021 12:00:00 AM EST solution 320 F OLLOW PRE-PROCEDURE INSTRUCTIONS, START DAY BEFORE PROCEDURE FOLLOW PRE-PROCEDURE INSTRUCTIONS, START DAY BEFORE PROCEDURE SOLD: 09/13/2021 [facility] 1 mg 09/12/2021 12:00:00 AM EST tablet extended release 24 hr 30 TAKE ONE TABLET BY MOUTH AT BEDTIME TAKE ONE TABLET BY MOUTH AT BEDTIME SOLD: 09/13/2021 [facility] 30 mg 09/12/2021 12:00:00 AM EST capsule 14 TAKE ONE CAPSULE BY MOUTH EVERY MORNING MAXIMUM DAILY DOSE = 1 TAKE ONE CAPSULE BY MOUTH EVERY MORNING MAXIMUM DAILY DOSE = 1 SOLD: 09/13/2021 [facility] 20 mg 08/29/2021 12:00:00 AM EDT capsule 14 TAKE ONE CAPSULE BY MOUTH EVERY MORNING MAXIMUM DAILY DOSE = 1 TAKE ONE CAPSULE BY MOUTH EVERY MORNING MAXIMUM DAILY DOSE = 1 SOLD: 08/30/2021 [facility] 250-50 mcg/dose 08/26/2021 12:00:00 AM EDT blister with gely ce 60 INHALE ONE PUFF BY MOUTH TWICE A DAY INHALE ONE PUFF BY MOUTH TWICE A DAY SOLD: 08/26/2021 [facility] 40 mg 08/15/2021 12:00:00 AM EDT capsule 14 TAKE ONE CAPSULE BY MOUTH EVERY MORNING MAXIMUM DAILY DOSE = 1 TAKE ONE CAPSULE BY MOUTH EVERY MORNING MAXIMUM DAILY DOSE = 1 SOLD: 08/17/2021 [facility] 1 mg 08/15/2021 12:00:00 AM EDT tablet extended release 24 hr 30 TAKE ONE TABLET BY MOUTH AT BEDTIME TAKE ONE TABLET BY MOUTH AT BEDTIME SOLD: 08/17/2021 [facility] 24 HR Amphetamine aspartate 3.75 MG / Am phetamine Sulfate 3.75 MG / Dextroamphetamine saccharate 3.75 MG / Dextroamphetamine Sulfate 3.75 MG Extended Release Oral Capsule 15 mg DEXTROAMPHETAMINE/AMPHETAMINE 07/26/2021 12:00:00 AM EDT capsule,extended release 24hr 14 TA KE ONE CAPSULE BY MOUTH EVERY MORNING MAXIMUM DAILY DOSE = 1 TAKE ONE CAPSULE BY MOUTH EVERY MORNING MAXIMUM DAILY DOSE = 1 SOLD: 07/27/2021 [facility] 5 mg/gram (0.5 %) 07/20/2021 12:00:00 AM EDT ointment 3 APPLY A SMALL AMOUNT INTO LEFT EYE THREE TIMES A DAY DIRECTED APPLY A SMALL AMOUNT INTO LEFT EYE THREE TIMES A DAY DIRECTED SOLD: 07/27/2021 [facility] 24 HR Amphetamine aspartate 2.5 MG / Amp hetamine Sulfate 2.5 MG / Dextroamphetamine saccharate 2.5 MG / Dextroamphetamine Sulfate 2.5 MG Extended Release Oral Capsule 10 mg DEXTROAMPHETAMINE/AMPHETAMINE 07/12/2021 12:00:00 AM EDT capsule,extended release 24hr 14 TA KE ONE CAPSULE BY MOUTH EVERY MORNING - MAXIMUM DAILY DOSE = 1 CAPSULE TAKE ONE CAPSULE BY MOUTH EVERY MORNING - MAXIMUM DAILY DOSE = 1 CAPSULE SOLD: 07/13/2021 [facility] 250 mg 06/12/2021 12:00:00 AM EDT tablet 6 TAKE TWO TABLETS BY MOUTH AT ONCE ON THE FIRST DAY THEN TAKE ONE DAILY THEREAFTER TAKE TWO TABLETS BY MOUTH AT ONCE ON THE FIRST DAY THEN TAKE ONE DAILY THEREAFTER SOLD: 06/12/2021 [facility] 20 mg 06/12/2021 12:00:00 AM EDT tablet 10 TAKE TWO TABLETS BY MOUTH EVERY DAY FOR 5 DAYS TAKE TWO TABLETS BY MOUTH EVERY DAY FOR 5 DAYS SOLD: 021 [facility] Zithromax Z-Ricci Zithromax Z-Ricci 06/12/2021 12:00:00 AM EDT ORAL completed [facility] ([facility]) Prednisone 20 MG Oral Tablet Prednisone 06/12/2021 12:00:00 AM EDT ORAL completed [facility] ([facility]) 24 HR Bupropion Hydrochloride 300 MG Extended Release Oral T ablet BUPROPION HCL 03/14/2021 12:00:00 AM EDT tablet extended release 24 hr 30 TAKE ONE TABLET BY MOUTH EVERY MORNING TAKE ONE TABLET BY MOUTH EVERY MORNING SOLD: 07/27/2021 [facility] 24 HR Bupropion Hydrochloride 300 MG Extended Release Oral T ablet BUPROPION HCL 03/14/2021 12:00:00 AM EDT tablet extended release 24 hr 30 TAKE ONE TABLET BY MOUTH EVERY MORNING TAKE ONE TABLET BY MOUTH EVERY MORNING SOLD: 06/27/2021 [facility] 24 HR Bupropion Hydrochloride 300 MG Extended Release Oral T ablet BUPROPION HCL 03/14/2021 12:00:00 AM EDT tablet extended release 24 hr 30 TAKE ONE TABLET BY MOUTH EVERY MORNING TAKE ONE TABLET BY MOUTH EVERY MORNING SOLD: 04/17/2021 [facility] 24 HR Bupropion Hydrochloride 300 MG Extended Release Oral T ablet BUPROPION HCL 03/14/2021 12:00:00 AM EDT tablet extended release 24 hr 30 TAKE ONE TABLET BY MOUTH EVERY MORNING TAKE ONE TABLET BY MOUTH EVERY MORNING SOLD: 03/18/2021 [facility] 24 HR Bupropion Hydrochloride 300 MG Extended Release Oral T ablet BUPROPION HCL 03/14/2021 12:00:00 AM EDT tablet extended release 24 hr 30 TAKE ONE TABLET BY MOUTH EVERY MORNING TAKE ONE TABLET BY MOUTH EVERY MORNING SOLD: 05/20/2021 [facility] 24 HR Bupropion Hydrochloride 150 MG Extended Release Oral T ablet BUPROPION HCL 02/13/2021 12:00:00 AM EDT tablet extended release 24 hr 30 TAKE ONE TABLET BY MOUTH EVERY MORNING COMBINE WITH 300MG TABLET FOR DAILY DOSE OF 450MG TAKE ONE TABLET BY MOUTH EVERY MORNING COMBINE WITH 300MG TABLET FOR DAILY DOSE OF 450MG SOLD: 06/27/2021 [facility] 24 HR Bupropion Hydrochloride 150 MG Extended Release Oral T ablet BUPROPION HCL 02/13/2021 12:00:00 AM EDT tablet extended release 24 hr 30 TAKE ONE TABLET BY MOUTH EVERY MORNING COMBINE WITH 300MG TABLET FOR DAILY DOSE OF 450MG TAKE ONE TABLET BY MOUTH EVERY MORNING COMBINE WITH 300MG TABLET FOR DAILY DOSE OF 450MG SOLD: 04/17/2021 [facility] 24 HR Bupropion Hydrochloride 150 MG Extended Release Oral T ablet BUPROPION HCL 02/13/2021 12:00:00 AM EDT tablet extended release 24 hr 30 TAKE ONE TABLET BY MOUTH EVERY MORNING COMBINE WITH 300MG TABLET FOR DAILY DOSE OF 450MG TAKE ONE TABLET BY MOUTH EVERY MORNING COMBINE WITH 300MG TABLET FOR DAILY DOSE OF 450MG SOLD: 02/17/2021 [facility] 24 HR Bupropion Hydrochloride 150 MG Extended Release Oral T ablet BUPROPION HCL 02/13/2021 12:00:00 AM EDT tablet extended release 24 hr 30 TAKE ONE TABLET BY MOUTH EVERY MORNING COMBINE WITH 300MG TABLET FOR DAILY DOSE OF 450MG TAKE ONE TABLET BY MOUTH EVERY MORNING COMBINE WITH 300MG TABLET FOR DAILY DOSE OF 450MG SOLD: 07/27/2021 [facility] 24 HR Bupropion Hydrochloride 150 MG Extended Release Oral T ablet BUPROPION HCL 02/13/2021 12:00:00 AM EDT tablet extended release 24 hr 30 TAKE ONE TABLET BY MOUTH EVERY MORNING COMBINE WITH 300MG TABLET FOR DAILY DOSE OF 450MG TAKE ONE TABLET BY MOUTH EVERY MORNING COMBINE WITH 300MG TABLET FOR DAILY DOSE OF 450MG SOLD: 05/20/2021 [facility] 24 HR Bupropion Hydrochloride 150 MG Extended Release Oral T ablet BUPROPION HCL 02/13/2021 12:00:00 AM EDT tablet extended release 24 hr 30 TAKE ONE TABLET BY MOUTH EVERY MORNING COMBINE WITH 300MG TABLET FOR DAILY DOSE OF 450MG TAKE ONE TABLET BY MOUTH EVERY MORNING COMBINE WITH 300MG TABLET FOR DAILY DOSE OF 450MG SOLD: 03/18/2021 [facility] 250-50 mcg/dose 02/12/2021 12:00:00 AM EDT blister with gely ce 60 INHALE ONE PUFF BY MOUTH TWICE A DAY INHALE ONE PUFF BY MOUTH TWICE A DAY SOLD: 03/18/2021 [facility] 250-50 mcg/dose 02/12/2021 12:00:00 AM EDT blister with gely ce 60 INHALE ONE PUFF BY MOUTH TWICE A DAY INHALE ONE PUFF BY MOUTH TWICE A DAY SOLD: 04/25/2021 [facility] 250-50 mcg/dose 02/12/2021 12:00:00 AM EDT blister with gely ce 60 INHALE ONE PUFF BY MOUTH TWICE A DAY INHALE ONE PUFF BY MOUTH TWICE A DAY SOLD: 02/13/2021 [facility] 1 % 02/08/2021 12:00:00 AM EDT cream 30 APPLY TO AFFECTED AREA(S) ON FACE TWO TIMES A DAY NEEDED APPLY TO AFFECTED AREA(S) ON FACE TWO TI MES A DAY NEEDED SOLD: 02/10/2021 [facility] Ketoconazole 20 MG/ML Medicated Shampoo KETOCONAZOLE 01/17/20 12:00:00 AM EDT shampoo 120 SHAMPOO DAILY UNTIL SCALP IS CLEAR, THEN USE 2 TO 3 TIMES PER WEEK FOR MAINTENANCE SHAMPOO DAILY UNTIL SCALP IS CLEAR, THEN USE 2 TO 3 TIMES PER WEEK FOR MAINTENANCE SOLD: 01/17/2021 [facility] 1 % 01/16/2021 12:00:00 AM EDT gel 60 APPLY TOPICALLY TO FACE SPARINGLY ONCE DAILY APPLY TOPICALLY TO FACE SPARINGLY ONCE DAILY SOLD: 01/17/2021 [facility] 250-50 mcg/dose 11/30/2020 12:00:00 AM EST blister with gely ce 60 INHALE ONE PUFF BY MOUTH TWICE A DAY INHALE ONE PUFF BY MOUTH TWICE A DAY SOLD: 12/04/2020 [facility] 60 ACTUAT Fluticasone propionate 0.25 MG /ACTUAT / salmeterol 0.05 MG/ACTUAT Dry Powder Inhaler [Advair] Advair Disk[facility] 11/29/2020 12:00:00 AM EST ORAL active [facility] ([facility]) 45-21 mcg/actuation 11/28/2020 12:00:00 AM EST HFA aerosol i nhaler 12 INHALE ONE PUFF BY MOUTH TWICE A DAY INHALE ONE PUFF BY MOUTH TWICE A DAY SOLD: 11/29/2020 [facility] 24 HR Bupropion Hydrochloride 300 MG Extended Release Oral T ablet BUPROPION HCL 08/29/2020 12:00:00 AM EDT tablet extended release 24 hr 30 TAKE ONE TABLET BY MOUTH EVERY MORNING COMBINE WITH 150MG TABLET FOR DAILY DOSE OF 450MG TAKE ONE TABLET BY MOUTH EVERY MORNING COMBINE WITH 150MG TABLET FOR DAILY DOSE OF 450MG SOLD: 12/16/2020 [facility] 24 HR Bupropion Hydrochloride 300 MG Extended Release Oral T ablet BUPROPION HCL 08/29/2020 12:00:00 AM EDT tablet extended release 24 hr 30 TAKE ONE TABLET BY MOUTH EVERY MORNING COMBINE WITH 150MG TABLET FOR DAILY DOSE OF 450MG TAKE ONE TABLET BY MOUTH EVERY MORNING COMBINE WITH 150MG TABLET FOR DAILY DOSE OF 450MG SOLD: 01/17/2021 [facility] 24 HR Bupropion Hydrochloride 300 MG Extended Release Oral T ablet BUPROPION HCL 08/29/2020 12:00:00 AM EDT tablet extended release 24 hr 30 TAKE ONE TABLET BY MOUTH EVERY MORNING COMBINE WITH 150MG TABLET FOR DAILY DOSE OF 450MG TAKE ONE TABLET BY MOUTH EVERY MORNING COMBINE WITH 150MG TABLET FOR DAILY DOSE OF 450MG SOLD: 10/16/2020 [facility] 24 HR Bupropion Hydrochloride 300 MG Extended Release Oral T ablet BUPROPION HCL 08/29/2020 12:00:00 AM EDT tablet extended release 24 hr 30 TAKE ONE TABLET BY MOUTH EVERY MORNING COMBINE WITH 150MG TABLET FOR DAILY DOSE OF 450MG TAKE ONE TABLET BY MOUTH EVERY MORNING COMBINE WITH 150MG TABLET FOR DAILY DOSE OF 450MG SOLD: 09/15/2020 [facility] 24 HR Bupropion Hydrochloride 300 MG Extended Release Oral T ablet BUPROPION HCL 08/29/2020 12:00:00 AM EDT tablet extended release 24 hr 30 TAKE ONE TABLET BY MOUTH EVERY MORNING COMBINE WITH 150MG TABLET FOR DAILY DOSE OF 450MG TAKE ONE TABLET BY MOUTH EVERY MORNING COMBINE WITH 150MG TABLET FOR DAILY DOSE OF 450MG SOLD: 11/14/2020 [facility] 24 HR Bupropion Hydrochloride 300 MG Extended Release Oral T ablet BUPROPION HCL 08/29/2020 12:00:00 AM EDT tablet extended release 24 hr 30 TAKE ONE TABLET BY MOUTH EVERY MORNING COMBINE WITH 150MG TABLET FOR DAILY DOSE OF 450MG TAKE ONE TABLET BY MOUTH EVERY MORNING COMBINE WITH 150MG TABLET FOR DAILY DOSE OF 450MG SOLD: 02/17/2021 [facility] 24 HR Bupropion Hydrochloride 300 MG Extended Release Oral T ablet BUPROPION HCL 08/29/2020 12:00:00 AM EDT tablet extended release 24 hr 18 TAKE ONE TABLET BY MOUTH EVERY MORNING COMBINE WITH 150MG TABLET FOR DAILY DOSE OF 450MG TAKE ONE TABLET BY MOUTH EVERY MORNING COMBINE WITH 150MG TABLET FOR DAILY DOSE OF 450MG SOLD: 08/29/2020 [facility] 25 mg 08/16/2020 12:00:00 AM EDT tablet 90 TAKE ONE TABLET BY MOUTH THREE TIMES A DAY NEEDED TAKE ONE TABLET BY MOUTH THREE TIMES A DAY NEEDED S OLD: 11/14/2020 [facility] 24 HR Bupropion Hydrochloride 150 MG Extended Release Oral T ablet BUPROPION HCL 08/16/2020 12:00:00 AM EDT tablet extended release 24 hr 30 TAKE ONE TABLET BY MOUTH EVERY MORNING IN COMBINATION WITH 300MG TABLETS FOR DAILY DOSE OF 450MG TAKE ONE TABLET BY MOUTH EVERY MORNING IN COMBINATION WITH 300MG TABLETS FOR DAILY DOSE OF 450MG SOLD: 08/16/2020 [facility] 24 HR Bupropion Hydrochloride 150 MG Extended Release Oral T ablet BUPROPION HCL 08/16/2020 12:00:00 AM EDT tablet extended release 24 hr 30 TAKE ONE TABLET BY MOUTH EVERY MORNING IN COMBINATION WITH 300MG TABLETS FOR DAILY DOSE OF 450MG TAKE ONE TABLET BY MOUTH EVERY MORNING IN COMBINATION WITH 300MG TABLETS FOR DAILY DOSE OF 450MG SOLD: 10/16/2020 [facility] 24 HR Bupropion Hydrochloride 150 MG Extended Release Oral T ablet BUPROPION HCL 08/16/2020 12:00:00 AM EDT tablet extended release 24 hr 30 TAKE ONE TABLET BY MOUTH EVERY MORNING IN COMBINATION WITH 300MG TABLETS FOR DAILY DOSE OF 450MG TAKE ONE TABLET BY MOUTH EVERY MORNING IN COMBINATION WITH 300MG TABLETS FOR DAILY DOSE OF 450MG SOLD: 12/16/2020 [facility] 25 mg 08/16/2020 12:00:00 AM EDT tablet 90 TAKE ONE TABLET BY MOUTH THREE TIMES A DAY NEEDED TAKE ONE TABLET BY MOUTH THREE TIMES A DAY NEEDED S OLD: 10/16/2020 [facility] 25 mg 08/16/2020 12:00:00 AM EDT tablet 90 TAKE ONE TABLET BY MOUTH THREE TIMES A DAY NEEDED TAKE ONE TABLET BY MOUTH THREE TIMES A DAY NEEDED S OLD: 01/17/2021 [facility] 24 HR Bupropion Hydrochloride 150 MG Extended Release Oral T ablet BUPROPION HCL 08/16/2020 12:00:00 AM EDT tablet extended release 24 hr 18 TAKE ONE TABLET BY MOUTH EVERY MORNING IN COMBINATION WITH 300MG TABLETS FOR DAILY DOSE OF 450MG TAKE ONE TABLET BY MOUTH EVERY MORNING IN COMBINATION WITH 300MG TABLETS FOR DAILY DOSE OF 450MG SOLD: 08/30/2020 [facility] 25 mg 08/16/2020 12:00:00 AM EDT tablet 90 TAKE ONE TABLET BY MOUTH THREE TIMES A DAY NEEDED TAKE ONE TABLET BY MOUTH THREE TIMES A DAY NEEDED S OLD: 08/16/2020 [facility] 24 HR Bupropion Hydrochloride 150 MG Extended Release Oral T ablet BUPROPION HCL 08/16/2020 12:00:00 AM EDT tablet extended release 24 hr 30 TAKE ONE TABLET BY MOUTH EVERY MORNING IN COMBINATION WITH 300MG TABLETS FOR DAILY DOSE OF 450MG TAKE ONE TABLET BY MOUTH EVERY MORNING IN COMBINATION WITH 300MG TABLETS FOR DAILY DOSE OF 450MG SOLD: 09/15/2020 [facility] 24 HR Bupropion Hydrochloride 150 MG Extended Release Oral T ablet BUPROPION HCL 08/16/2020 12:00:00 AM EDT tablet extended release 24 hr 30 TAKE ONE TABLET BY MOUTH EVERY MORNING IN COMBINATION WITH 300MG TABLETS FOR DAILY DOSE OF 450MG TAKE ONE TABLET BY MOUTH EVERY MORNING IN COMBINATION WITH 300MG TABLETS FOR DAILY DOSE OF 450MG SOLD: 01/17/2021 [facility] 24 HR Bupropion Hydrochloride 150 MG Extended Release Oral T ablet BUPROPION HCL 08/16/2020 12:00:00 AM EDT tablet extended release 24 hr 30 TAKE ONE TABLET BY MOUTH EVERY MORNING IN COMBINATION WITH 300MG TABLETS FOR DAILY DOSE OF 450MG TAKE ONE TABLET BY MOUTH EVERY MORNING IN COMBINATION WITH 300MG TABLETS FOR DAILY DOSE OF 450MG SOLD: 11/14/2020 [facility] 25 mg 08/16/2020 12:00:00 AM EDT tablet 90 TAKE ONE TABLET BY MOUTH THREE TIMES A DAY NEEDED TAKE ONE TABLET BY MOUTH THREE TIMES A DAY NEEDED S OLD: 02/17/2021 [facility] 25 mg 08/16/2020 12:00:00 AM EDT tablet 90 TAKE ONE TABLET BY MOUTH THREE TIMES A DAY NEEDED TAKE ONE TABLET BY MOUTH THREE TIMES A DAY NEEDED S OLD: 12/16/2020 [facility] 25 mg 08/16/2020 12:00:00 AM EDT tablet 90 TAKE ONE TABLET BY MOUTH THREE TIMES A DAY NEEDED TAKE ONE TABLET BY MOUTH THREE TIMES A DAY NEEDED S OLD: 09/15/2020 [facility] 120 ACTUAT Fluticasone propionate 0.045 MG/ACTUAT / salmeterol 0.021 MG/ACTUAT Metered Dose Inhaler [Advair] 45-21 mcg/actuation FLUTICASONE PROPION/SALMETEROL 06/20/2020 12:00:00 AM EDT HFA aerosol inhaler 12 INHALE ONE PUFF BY MOUTH TWICE A DAY INHALE ONE PUFF BY MOUTH TWICE A DAY SOLD: 06/10/2021 [facility] Insurance Providers Payer name Policy type / Coverage type Policy ID Covered republican ID Covered republican's relationship to crockett Policy Crockett Plan Information POMCO U [id number] Self [id number] LIF[employer]IME BENEFIT SOLUTIONS U [id number] Self [id number] [facility] [address] [place] [address] [facility] -[facility]/P [id number] 01 [id number] [facility]inationRX [facility] UNAVAILABLE 01 UNA[place] [facility] [id number] [place] [id number] [facility] [id number] 1 [id number] [facility] [address] [place] [address] LIFETIME BENEFIT SOLUTIONS [id number] SP [id number] [facility] INSURANCE -O/P [id number] Lifetime Benefit Solution Medigap Part B [id number] Self [id number] [employer] [id number] POM[employer] [id number] SP [id number] Lifetime Benefit Solution Medigap Part B [id number] Self [employer] Commercial [id number] Self POMCO COMM SELF [id number] S [id number] [employer] PPO O [id number] S [id number] LIF[employer]IME BENEFIT SOLUTIONS COMM [id number] S [id number] SELF PAY SP UNAVAILABLE S UNAVAILA BLE [place] PPO [id number] [id number] [facility] MEDICAL CLAIMS [id number] SP [id number] [facility] [place] [id number] 01 [id number] [employer] [place] PPO 302/307 [id number] [place] [id number] Problems, Conditions, and Diagnoses Code Display Name Description Problem Type Effective Dates Data Source(s) V68[address] of occurrence of the external cause Truck as the place of occurrence of the external cause Diagnosis 07/20/2021 03:33:00 PM EDT [facility] [id number] Striking against or struck by other obje cts, initial encounter Striking against or struck by other objects, initial encounter Diagnosis 07/20/2021 03:33:00 PM [facility] [id number] Injury of conjunctiva and co rneal abrasion without foreign body, left eye, initial encounter Injury of conjunctiva and corneal abrasi on without foreign body, left eye, initial encounter Diagnosis 07/20/2021 03:33:0 [facility] Ocular pain, left eye Ocular pain, left eye Diagnosis 07/20/2021 03:33:00 PM EDT [facility] J449 Chronic obstructive pulmonary disease, u nspecified Chronic obstructive pulmonary disease, unspecified Diagnosis 01/08/2021 12:54:00 PM EST [facility] K921 Melena Melena Diagnosis 01/08/2021 12:54:00 PM [facility] R748 Abnormal levels of other serum enzymes A bnormal levels of other serum enzymes Diagnosis 01/08/2021 12:54:00 PM [facility] K219 Gastro-esophageal reflux disease without esophagitis Gastro-esophageal reflux disease without esophagitis Diagnosis 12/25/2020 07:24:00 AM ES T [facility] [id number] Right upper quadrant abdominal tendernes s Right upper quadrant abdominal tenderness Diagnosis 12/25/2020 07:24:00 AM [facility] L309 Dermatitis, unspecified Dermatitis, unspecified Diagno sis 12/24/2020 07:59:00 AM [facility] F1210 Cannabis abuse, uncomplicated Cannabis abuse, uncompli cated Diagnosis 10/31/2020 10:27:00 AM [facility] R079 Chest pain, unspecified Chest pain, unspecified Diagno sis 10/31/2020 10:27:00 AM [facility] R53.82 [id number] Chronic fatigue Problem 07/23/2021 12:00:00 AM EDT eCW1 ([facility]) R20.2 [id number] Paresthesia Problem 07/23/2021 12:00:00 AM E DT eCW1 ([facility]) Surgeries/Procedures Procedure Description Date Indications Data Source(s) OFFICE OUTPATIENT VISIT 15 MINUTES 10/03/2021 12:00:00 AM EST [facility] ([facility]) Needle electromyography, each extremity, with related paraspinal areas, when performed, done with nerve conduction, amplitude and latency/velocity study; complete, five or more muscles studied, innervated by three or more nerves or four or more spinal levels (list separately in addition to the code for primary procedure). 09/12/2021 12:00:00 AM EST MEDEN T ([facility], ) Needle electromyography, each extremity, with related paraspinal areas, when performed, done with nerve conduction, amplitude and latency/velocity study; complete, five or more muscles studied, innervated by three or more nerves or four or more spinal levels (list separately in addition to the code for primary procedure). 09/12/2021 12:00:00 AM EST MED[facility] T ([facility]) Needle Electromyography Non Extremity Done With Nerve Conduc tion 09/12/2021 12:00:00 AM EST [facility] ([facility] ) Needle Electromyography Non Extremity Done With Nerve Conduc tion 09/12/2021 12:00:00 AM EST [facility] ([facility]) [address] Nerve conduction studies 13 or more studies NEW 201209/12/2021 12:00:00 AM EST [facility] ([facility]) OFFICE OUTPATIENT VISIT 15 MINUTES 06/12/2021 12:00:00 AM EDT [facility] ([facility]) OFFICE OUTPATIENT VISIT 15 MINUTES 02/12/2021 12:00:00 AM EDT [facility] ([facility]) OFFICE OUTPATIENT VISIT 15 MINUTES 01/08/2021 12:00:00 AM EST [facility] ([facility]) OFFICE OUTPATIENT VISIT 15 MINUTES 12/24/2020 12:00:00 AM EST [facility] ([facility]) ECG ROUTINE ECG W/LEAST 12 LDS W/I&R 11/14/2020 12:00: 00 AM EST [facility] (Pre[facility]) CV STRS TST XERS&/OR RX CONT ECG PHYS SI&R 11/14/2020 12:00:00 AM EST [facility] ([facility]) ECHO TTHRC R-T 2D W/WOM-MODE COMPL SPEC&COLR DOP 11/14 12:00:00 AM EST [facility] ([facility]) Brief Emotional/Behav Assessment W/ Scoring Doc Per Standard Inst 10/31/2020 12:00:00 AM EST [facility] ([facility]) Results ID Date Data Source [id number] 10/03/2021 03:13:00 PM EST [facility] ([facility]) Name Value Range Interpretation Code Description Data Shona rce(s) Supporting Document(s) Cholesterol [Mass/volume] in Serum or Plasma Laboratory test result [facility] ([facility]) Cholesterol.total/Cholesterol in HDL [Molar ratio] in Serum or Plasma Laboratory test result [facility] ([facility]) High Density Lipoprotein Laboratory test result [facility] ([facility]) Cholesterol in LDL/Cholesterol in HDL [Mass Ratio] in Serum or Plasma Laboratory test result [facility] ([facility]) Cholesterol in LDL [Mass/volume] in Serum or Plasma Laboratory test result [facility] ([facility]) Triglyceride [Mass/volume] in Serum or Plasma Laboratory test result [facility] ([facility]) ID Date Data Source [id number] 10/03/2021 03:13:00 PM EST [facility] ([facility]) Name Value Range Interpretation Code Description Data Shona rce(s) Supporting Document(s) Specific gravity of Urine Laboratory test result [facility] ([facility]) pH of Urine by Test strip Laboratory test result [facility] ([facility]) Color of Urine Laboratory test result [facility] ([facility]) Appearance of Urine Laboratory test result [facility] ([facility]) Leukocytes [#/area] in Urine sediment by Microscopy hi gh power field Laboratory test result [facility] ([facility]) Protein [Presence] in Urine by Test strip Laboratory test result [facility] ([facility]) Glucose [Presence] in Urine Laboratory test result [facility] ([facility]) Ketones [Presence] in Urine by Test strip Laboratory test result [facility] ([facility]) Bilirubin.total [Presence] in Urine by Test strip Laboratory test res ult [facility] ([facility]) Urobilinogen [Mass/volume] in Urine by Test strip Laboratory test res ult [facility] ([facility]) Nitrite [Presence] in Urine by Test strip Laboratory test result [facility] ([facility]) Ua Occult Blood Laboratory test result [facility] ([facility]) ID Date Data Source [id number] 10/03/2021 03:13:00 PM EST [facility] ([facility]) Name Value Range Interpretation Code Description Data Shona rce(s) Supporting Document(s) Thyrotropin [Units/volume] in Serum or Plasma Laboratory test result [facility] ([facility]) Thyroxine (T4) free [Mass/volume] in Serum or Plasma Laboratory carol t result [facility] ([facility]) ID Date Data Source [id number] 10/03/2021 03:13:00 PM EST [facility] ([facility]) Name Value Range Interpretation Code Description Data Shona rce(s) Supporting Document(s) Z#Other Observations Laboratory test result [facility] ([facility]) ID Date Data Source [id number] 10/03/2021 03:13:00 PM EST [facility] ([facility]) Name Value Range Interpretation Code Description Data Shona rce(s) Supporting Document(s) Leukocytes [#/volume] in Blood by Automated count Laboratory test res ult [facility] ([facility]) Erythrocytes [#/volume] in Blood by Automated count Laboratory test result [facility] ([facility]) Hemoglobin [Mass/volume] in Blood Laboratory test result [facility] ([facility]) Hematocrit [Volume Fraction] of Blood by Automated count Lab oratory test result [facility] ([facility]) Erythrocyte mean corpuscular volume [Entitic volume] b y Automated count Laboratory test result [facility] ([facility]) Erythrocyte mean corpuscular hemoglobin [Entitic mass] by Automated count Laboratory test result [facility] ([facility]) Erythrocyte mean corpuscular hemoglobin concentration [Mass/volume] by Automated count Laboratory test result [facility] ([facility]) Platelets [#/volume] in Blood by Automated count Laboratory test resu lt [facility] ([facility]) Erythrocyte distribution width [Ratio] by Automated co unt Laboratory test result [facility] ([facility]) Platelet mean volume [Entitic volume] in Blood by Brett Villalobos Laboratory test result [facility] ([facility]) Neutrophils Laboratory test result M EDENT ([facility]) Band form neutrophils/100 leukocytes in Body fluid by Manual count Laboratory test result [facility] ([facility]) Lymphocytes/100 leukocytes in Body fluid by Manual count Lab oratory test result [facility] ([facility]) Monocytes Laboratory test result [facility] ([facility]) Eosinophils/100 leukocytes in Body fluid by Manual count Lab oratory test result [facility] ([facility]) Basophils/100 leukocytes in Blood Laboratory test result [facility] ([facility]) Basophils [#/volume] in Blood by Automated count Laboratory test resu lt [facility] ([facility]) Eosinophils [#/volume] in Blood by Automated count Laboratory test re sult [facility] ([facility]) Lymphocytes [#/volume] in Blood Laboratory test result [facility] ([facility]) Monocytes [#/volume] in Blood Laboratory test result [facility] ([facility]) Neutrophils [#/volume] in Blood by Automated count Laboratory test re sult [facility] ([facility]) ID Date Data Source [id number] 09/30/2021 09:25:00 AM EST [facility] ([facility]) Name Value Range Interpretation Code Description Data Shona rce(s) Supporting Document(s) Laboratory test finding (navigational concept) Laboratory test result [facility] ([facility]) ASSAY INFORMATION: Real Time RT-PCR NOTE: The COVID-19 assay has been cleared by the U.S. Food and Drug Administration under the Emergency Use Authorization (EUA). [employer] and [facility] are designated as high complexity laboratories by the Clinical Laboratory Improvement Amendments of 1988(CLIA) and are qualified to perform this test. Not Detected ID Date Data Source [id number] 09/30/2021 09:25:00 AM EST [facility] Name Value Range Interpretation Code Description Data Shona rce(s) Supporting Document(s) SARS-CoV-2 (COVID-19) RNA [Presence] in Respiratory specimen by DAV with probe detection Not Detected [facility] This lab was ordered by [facility] and reported by [employer] ID Date Data Source VITAMIN B12 LEVEL 07/23/2021 12:00:00 AM EDT eCW1 ([facility]) Name Value Range Interpretation Code Description Data Shona rce(s) Supporting Document(s) 407 647-200 VITAMIN B12 LEVEL eCW1 ([facility]) ID Date Data Source TOTAL PROTEIN,RANDOM URINE 07/23/2021 12:00:00 AM EDT eCW1 ( [facility]) Name Value Range Interpretation Code Description Data Shona rce(s) Supporting Document(s) 16.7 0.0-12.0 TOTAL PROTEIN,RANDOM URIN E eCW1 ([facility]) ID Date Data Source CREATININE,RANDOM URINE 07/23/2021 12:00:00 AM EDT eCW1 ([facility]) Name Value Range Interpretation Code Description Data Shona rce(s) Supporting Document(s) 230.0 CREATININE,RANDOM URINE eCW1 ( [facility]) ID Date Data Source UA URINALYSIS 07/23/2021 12:00:00 AM EDT eCW1 ([facility]) Name Value Range Interpretation Code Description Data Shona rce(s) Supporting Document(s) UA URINALYSIS eCW1 ([facility]) ID Date Data Source TSH 07/23/2021 12:00:00 AM EDT eCW1 ([facility]) Name Value Range Interpretation Code Description Data Shona rce(s) Supporting Document(s) 2.070 0.358-3.740 THYROID STIMULATING HORM ONE eCW1 ([facility]) ID Date Data Source MAGNESIUM LEVEL 07/23/2021 12:00:00 AM EDT eCW1 ([facility]) Name Value Range Interpretation Code Description Data Shona rce(s) Supporting Document(s) 2.1 1.8-2.4 MAGNESIUM LEVEL eCW1 ([facility]) ID Date Data Source Basic Metabolic Profile (BMP) 07/23/2021 12:00:00 AM EDT eCW 1 ([facility]) Name Value Range Interpretation Code Description Data Shona rce(s) Supporting Document(s) 19 7-18 BLOOD UREA NITROGEN eCW1 ([facility]) 67 70-100 GLUCOSE, FASTING eCW1 ([facility]) > 60.0 >60 GLOMERULAR FILTRATION RATE eCW 1 ([facility]) 138 136-145 SODIUM LEVEL eCW1 ([facility]) 0.82 0.70-1.30 CREATININE FOR GFR eCW1 ([facility]) 103 98-107 CHLORIDE LEVEL eCW1 ([facility]) 3.7 3.5-5.1 POTASSIUM SERUM eCW1 ([facility]) 28 21-32 CARBON DIOXIDE LEVEL eCW1 ([facility]) 9.3 8.5-10.1 CALCIUM LEVEL eCW1 ([facility]) ID Date Data Source IRON (FE) 07/23/2021 12:00:00 AM EDT eCW1 ([facility]) Name Value Range Interpretation Code Description Data Shona rce(s) Supporting Document(s) 94 65-175 IRON (FE) eCW1 ([facility]) ID Date Data Source COMPLEMENT C4 07/23/2021 12:00:00 AM EDT eCW1 ([facility]) Name Value Range Interpretation Code Description Data Shona rce(s) Supporting Document(s) 32 10-40 COMPLEMENT C4 eCW1 ([facility]) ID Date Data Source COMPLEMENT C3 07/23/2021 12:00:00 AM EDT eCW1 ([facility]) Name Value Range Interpretation Code Description Data Shona rce(s) Supporting Document(s) 125 90-180 COMPLEMENT C3 eCW1 ([facility]) ID Date Data Source [id number] 07/20/2021 03:33:00 PM EDT [facility] 1 OrderSheet [facility] Emergency Department [address] [place] [address] Phone #: [phone]- [phone] 07/20/2021 15:22 Patient: NIMISHA QUILES Sex: M : 1985 Age: 36yWEIGHT:104.3 kg (S) HEIGHT:72 inches (S) BMI:31.2ALLERGIES: PenicillinsCHIEF COMPLAINT: redness, irritationLAB ORDERSOrder Description Priority Entered Acknowledged InitialedDIAGNOSTIC STUDY ORDERSOrder Description Priority Entered Acknowledged InitialedMEDICATION/IV/DRIP/FLUID ORDERSOrder Description Priority Entered Acknowledged InitialedErythromycin Eye 16:03 07/20/2021 16:10 Devaughn Michelle 1 Cr LEPE; Liliana EspitiaplicationGENERAL ORDERSOrder Description Priority Entered Acknowledged Initialed[Electronically signed by Liliana Michelle RN (16:58 07/20/2021)][Electronically signed by Cr Summers (17:16 07/20/2021)][Electronically locked by Liliana Michelle RN (16:58 07/20/2021)] Name Value Range Interpretation Code Description Data Shona rce(s) Supporting Document(s) ID Date Data Source [id number] 07/20/2021 03:33:00 PM EDT [facility] 1 Medication Reconciliation Report [facility] Emergency Department [address] [place] [address] Phone #: [phone] 07/20/2021 15:22 Patient: NIMISHA QUILES Sex: M : 1985 Age: 36yWeight: 104.3 kgHeight/Length: 72 in.BMI: 31.2ALLERGIES: PenicillinsThe patient's Home Medications are listed below:CONTINUE TAKING THE FOLLOWING MEDICATIONS: Adderall Oral 10 mg, dailyThe source(s) of the original Home Medication information:Not obtained.The following Medications were given to the patient in the Emergency Department:Erythromycin [Eye Ointment] Eye Ointment 1 application, administered: 16:10 07/20/2021The following Medications were prescribed to the patient:erythromycin 5 mg/gram (0.5 %) eye ointment Apply a small amount three times a day as directed for 7days -- Dispense 3.5 gram. Refills: 0. Substitution permitted. Note to Pharmacy - USE Rx DISCOUNTCARD: $14.3, BIN:[id number], PCN:CORRY, Group:EMR, ID:[id number].Pharmacy - [facility] - [address] [facility] ; [place], [place] [id number]. . -- SHERLEY Fitzpatrick Name Value Range Interpretation Code Description Data Shona rce(s) Supporting Document(s) ID Date Data Source [id number] 07/20/2021 03:33:00 PM EDT [facility] 1 Medication Administration Record [facility] Emergency Department [address] [place] [address] Phone #: [phone] 07/20/2021 15:22 Patient: NIMISHA QUILES Sex: M : 1985 Age: 36yWeight: 104.3 kgHeight/Length: 72 inBMI: 31.2ALLERGIES: Penicillins Date/Time Medication Administered Medication OrderedGiven ERYTHROMYCIN [EYE OINTMENT] Erythromycin Eye Ointment 116:10 07/20/2021 Dose: 1 application Eye Ointment Liliana Patel RN Name Value Range Interpretation Code Description Data Shona rce(s) Supporting Document(s) ID Date Data Source [id number] 07/20/2021 03:33:00 PM EDT [facility] 1 General Instructions [facility] Emergency Department [address] [place] [address] Phone #: [phone]- [phone] 07/20/2021 15:22 Patient: NIMISHA QUILES Sex: M : 1985 Age: 36y(conjunctival abrasion L eye).INSTRUCTIONSNo strenuous activity until better. Do not work for two days.Do not smoke. No alcohol.Warnings: Further evaluation is necessary. It is very important to follow up with a healthcare provider.GENERAL WARNINGS: Return or contact your ph ysician immediately if your condition worsens orchanges unexpectedly, if not improving as expected, or if other problems arise. worsening L eyesymptoms.Your Current Medications: Your current home medications have been reviewed.CONTINUE TAKING THE FOLLOWING MEDICATIONS:Adderall Oral : 10 mg daily.Prescription Medications:erythromycin 5 mg/gram (0.5 %) eye ointment Apply a small amount three times a day as directed for 7days -- Dispense 3.5 gram. Refills: 0. Substitution permitted. Note to Pharmacy - USE Rx DISCOUNTCARD: $14.3, BIN:[id number], PCN:CORRY, Group:EMR, ID:[id number].Pharmacy - [facility] - [address] ; [place], [place] [phone]. .Understanding of the discharge instructions verbalized by patient. Expected course of injury, dischargeinstructions, activity level, prescriptions x1, follow-up appointment and risks and benefits of treatmentreviewed with patient and understanding verbalized. Agrees to plan of care.Follow-up with: [facility], , , [address] [place] [address], , [place], [address] Follow up in two days even if well. Call for the next available appointment. Reason for referral:evaluation. Summary of care provided to patient via paper.No strenuous activity until better. Do not work for two days. 2 General Instructions [facility] Emergency Department [address] [place] [address] Phone #: ext- [phone] 07/20/2021 15:22 Patient: NIMISHA QUILES Sex: M : 1985 Age: 36y(Electronically signed by SHERLEY Fitzpatrick 07/20/2021 17:16) Name Value Range Interpretation Code Description Data Shona rce(s) Supporting Document(s) ID Date Data Source [id number] 07/20/2021 03:33:00 PM EDT [facility] 1 Clinical Report - Nurses [facility] Emergency Department [address] [place] [address] Phone #: [phone] 07/20/2021 15:22 Patient: NIMISHA QUILES Sex: M : 1985 Age: 36yTRIAGEArrived by private vehicle. Historian: patient. Accompanied by family.Acuity: LEVEL 2.Chief Complaint: FOREIGN BODY TO LEFT EYE.Alert. No acute distress.Onset. (2 hours ago). ( PT was working on his truck and a metal shard popped off into his left eye. He isunsure if its still in his eye. HE tried using visine which did not help.). He has had eye discomfort. 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 SEPSIS SCREEN NEGATIVE. No suspected or confirmedsigns of infection present.CHRISTIN COMA SCORE: 15- eyes open- spontaneous (4); best verbal response- oriented (5); bestmotor response- obeys commands (6). --15:33 07/20/21 Milagros Ward R.N.15:27 07/20/21. BP: 134/91. HR: 84. RR: 16. O2 saturation: 98%. Temp: 98.7 F. Pain level now 5/10.--15:33 07/20/21 Milagros Ward R.N.Weight: 104.3 kg stated. Height/Length: 72 inches Per Patient. BMI: 31.2. --15:31 07/20/21 Milagros Ward R.N.MedicationsAdderall Oral 10 mg, daily. --15:30 07/20/21 Milagros Ward R.N.AllergiesPenicillins. --15:30 07/20/21 Milagros Ward R.N.PROBLEMS:ADHD - Attention Deficit Hyperactivity Disorder. --15:31 07/20/21 Milagros Ward R.N.ADDITIONAL SURGERIES:Fatty tumor removal. --15:31 07/20/21 Milagros Ward R.N.HistoryPAST MEDICAL HX: Immunizations: up-to-date. 2 Clinical Report - Nurses [facility] Emergency Department [address] [place] [address] Phone #: ext- [phone] 07/20/2021 15:22 Patient: NIMISHA QUILES Sex: M : 1985 Age: 36y SOCIAL HX: Never smoker. Drug use: marijuana. Recently used drugs yesterday. No alcohol use. He was offered HIV testing but declined and hepatitis C testing but declined. He has not traveled outside the [place] Infectious disease exposure: The patient was not exposed to C-diff, MRSA, VRE, CRE or Coronavirus. SELF HARM ASSESSMENT: Self harm assessment was performed. The patient answered "no" to the question(s) "Have you recently felt down, depressed, or hopeless?", "Do you have thoughts of harming or killing yourself?", "Do you have a plan for harming or killing yourself?", "Have you recently had thoughts about harming or killing others?", "Do you have any dangerous items in your possession?", "Have you noticed less interest or pleasure in doing things?", "Are you here because you tried to hurt yourself?" and "Have you ever tried to hurt yourself before today?". ABUSE ASSESSMENT: No report of abuse. NUTRITIONAL RISK ASSESSMENT: The nutritional risk assessment revealed no deficiencies. FUNCTIONAL ASSESSMENT: Functional assessment: no impairments noted. LEARNING NEEDS ASSESSMENT: The learning needs assessment revealed no barriers. FALL RISK ASSESSMENT: Fall risk assessment completed. No risk factors identified. SKIN INTEGRITY ASSESSMENT: Skin integrity risk assessment completed. No skin integrity risk identified. --15:33 07/20/21 Milagros Ward R.N. Interventions Identification and allergy band on patient. To treatment room. --15:33 07/20/21 Ward, Milagros, R.N.PHYSICAL [id number]:45 07/20/21. Ambulatory to room.GENERAL / NEURO / PSYCH: Alert. Appears in no acute distress. Pupillary exam: (L eye red andirritated, difficult to open).HEENT: No facial asymmetry noted.RESPIRATORY: Respirations not labored.SKIN: Skin is warm and dry. --16:57 07/20/21 Liliana Michelle RN.NURSING PROGRESS NOTES15:45 07/20/21. Reassurance given. Two patient identifiers checked. Bed placed in lowest position.Brakes of bed on. --16:57 07/20/21 Liliana Michelle RN 16:10 07/20/2021 Erythromycin Eye Ointment 1 application given. Given in the left eye. Allergies verified and confirmed 5 rights. Information reviewed with patient including reason for taking this medication. Verbalizes understanding. --16:10 07/20/21 Liliana Michelle RN. 3 Clinical Report - Nurses [facility] Emergency Department [address] [place] [address] Phone #: ext- [phone] 07/20/2021 15:22 Patient: NIMISHA QIULES Sex: M : 1985 Age: 36yDISPOSITION / DISCHARGE 16:07 07/20/21. BP: 129/81. HR: 78. RR: 16. O2 saturation: 99%. Temp: 98.0 F. --16:08 07/20/21 [facility] Tech, JUVE Barker Tech1 Departure time: 16:13 07/20/2021. --16:13 07/20/21 Liliana Michelle RN 16:13 07/20/21. Pain level now: 12/12. --16:58 07/20/21 Liliana Michelle RN.Locked/Released at 07/20/2021 16:58 by Liliana Michelle RN Name Value Range Interpretation Code Description Data Shona rce(s) Supporting Document(s) ID Date Data Source [id number] 07/20/2021 03:33:00 PM EDT [facility] 1 Clinical Report - Physicians/Mid Levels [facility] Emergency Department [address] [place] [address] Phone #: ext- [phone] 07/20/2021 15:22 Patient: NIMISHA QUILES Sex: M : 1985 Age: 36y Time Seen: 15:36 07/20/2021. Arrived- By private vehicle. Historian- patient. Disposition decision: 16:06 07/20/2021.HISTORY OF PRESENT ILLNESS Chief Complaint: EYE REDNESS and IRRITATION. This started today, involves the left eye and is characterized as moderate in severity. 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 metal, L eye irritation, FB sensation, redness, photophobia. The patient may have sustained an injury. Mechanism- ? FB L eye. Not injured from contact lenses. No direct trauma to the eyes. No chemical exposure. Did not occur at home. Eye discomfort, burning, redness and irritation. Photophobia. No decreased vision or loss of vision. Patient denies injury to the head, face or neck.REVIEW OF SYSTEMSNo fever, sore throat or cough.PAST HISTORYSee nurses notes. Problems: ADHD - Attention Deficit Hyperactivity Disorder. Additional Surgeries: Fatty tumor removal. Medications: Adderall Oral 10 mg, daily. Allergies: Penicillins.SOCIAL HISTORYNever smoker. Drug use: marijuana. No alcohol use.ADDITIONAL NOTESThe nursing notes have been reviewed with agreement regarding the chief complaint, HPI, ROS, PMH andpatient medications and allergies.PHYSICAL EXAMVital Signs: 07/20/2021 15:27 BP: 134/91. MAP: 105. HR: 84. RR: 16. O2 saturation: 98%. Temp: 98.7 F.Have been reviewed as abnormal and appear to be correct. Hypertensive. Mean arterial pressure-normal. Heart rate normal. Respiratory rate normal. Temperature normal. Oxygen saturation normal.Eyes: Visual acuity noted- see nurse's notes. Left eyelid everted for examination. Left cornea examined 2 Clinical Report - Physicians/[facility] Emergency Department [address] [place] [address] Phone #: ext- [phone] 07/20/2021 15:22 Patient: NIMISHA QUILES Sex: M : 1985 Age: 36y with fluorescein stain. Eyelids appear normal to inspection. Corneas appear normal to inspection. Pupils equal, round and reactive to light. Accommodation normal. EOMs intact. Periorbital areas appear normal to inspection. Rt Eye: Right eye exam normal. Lt Eye: Left eye exam normal. Mild conjunctival edema. Conjunctival injury: small abrasion localized to the medial aspect of the conjunctiva. No corneal foreign body or abrasion or fluorescein dye uptake.PROGRESS AND PROCEDURESDisposition: Discharged home in good and improved condition.Discharge decision based on the following: patient's condition is improved; patient is ambulatory; patient isactive; patient's pain is controlled; patient's exam is stable; improving condition on repeat evaluation; socialsupport is adequate; transportation is available; follow-up is available; clinical impression is consistent withoutpatient treatment.CLINICAL IMPRESSION (conjunctival abrasion L eye).INSTRUCTIONS No strenuous activity until better. Do not work for two days. Do not smoke. No alcohol. Warnings: Further evaluation is necessary. It is very important to follow up with a healthcare provider. GENERAL WARNINGS: Return or contact your physician immediately if your condition worsens or changes unexpectedly, if not improving as expected, or if other prob lems arise. worsening L eye symptoms. Your Current Medications: Your current home medications have been reviewed. CONTINUE TAKING THE FOLLOWING MEDICATIONS: Adderall Oral : 10 mg daily. Prescription Medications: erythromycin 5 mg/gram (0.5 %) eye ointment Apply a small amount three times a day as directed for 7 days -- Dispense 3.5 gram. Refills: 0. Substitution permitted. Note to Pharmacy - USE Rx DISCOUNT CARD: $14.3, BIN:[id number], PCN:[id number], Group:[id number], ID:[id number]. Pharmacy - [id number] - [address] [facility] ; [place], [place] [id number]. . Understanding of the discharge instructions verbalized by patient. Expected course of injury, discharge instructions, activity level, prescriptions x1, follow-up appointment and risks and benefits of treatment reviewed with patient and understanding verbalized. Agrees to plan of care. 3 Clinical Report - Physicians/Mid Levels [facility] Emergency Department [address] [place] [address] Phone #: ext- [phone] 07/20/2021 15:22 Patient: NIMISHA QUILES Sex: M : 1985 Age: 36y Follow-up with: [facility], , , [address] [place] [address], [place], [address] Follow up in two days even if well. Call for the next available appointment. Reason for referral: evaluation. Summary of care provided to patient via paper.(Electronically signed by SHERLEY Fitzpatrick 07/20/2021 17:16) Name Value Range Interpretation Code Description Data Shona rce(s) Supporting Document(s) ID Date Data Source [id number] 05/08/2021 12:00:00 AM EDT [facility] Name Value Range Interpretation Code Description Data Shona rce(s) Supporting Document(s) SARS coronavirus 2 Ag Rapid test result: Negative [facility] and [facility] by [facility]. ID Date Data Source [id number] 01/08/2021 02:05:00 PM EST [facility] ([facility]) Name Value Range Interpretation Code Description Data Shona rce(s) Supporting Document(s) Sed Rate 2 mm/hr 0-15 [facility] ([facility]) Sed Rate Reenter 2 [facility] ([facility]) ID Date Data Source [id number] 01/08/2021 02:05:00 PM EST [facility] ([facility]) Name Value Range Interpretation Code Description Data Shona rce(s) Supporting Document(s) Sjogren's Anti-SS-A Laboratory test result 0.0-0.9 [facility] ([facility]) Sjogren's Anti-SS-B Laboratory test result 0.0-0.9 [facility] ([facility]) Guerra Antibodies 0.2 AI 0.0-0.9 [facility] ([facility]) COMMUNITY EDUCATION SPECIALIST Antibodies 0.5 AI 0.0-0.9 [facility] ([facility]) Anti-Dna (DS) Ab Qn 6 IU/ml 0-9 [facility] ([facility]) <content>Negative <5</content>
<content>Equivocal 5 - 9</content>
<content>Positive >9</content>
<content></content> ID Date Data Source [id number] 01/08/2021 02:05:00 PM EST [facility] ([facility]) Name Value Range Interpretation Code Description Data Shona rce(s) Supporting Document(s) Laboratory test finding (navigational concept) Laboratory test r esult Abnormal (applies to non-numeric results) [facility] ([facility]) <content>Negative <1:80</content>
<content>Borderline 1:80</content>
<content>Positive >1:80</content>
<content></content> Laboratory test finding (navigational concept) Laboratory test r esult Above high normal [facility] ([facility]) Note: Laboratory test result [facility] ([facility]) A positive ENZO result may occur in healt hy individuals (low titer) or be associated with a variety of diseases. See interpretation chart which is not all inclusive: Pattern Antigen Detected Suggested Disease Association --------- Homogeneous DNA(ds,ss), SLE - High titers Nucleosomes, Histones Drug-induced SLE --------- Speckled Sm, COMMUNITY EDUCATION SPECIALIST, SCL-70, SLE,MCTD,PSS (diffuse form), SS-A/SS-B Sjogrens --------- Nucleolar SCL-70, PM-1/SCL High titers Scleroderma, PM/DM --------- Centromere Centromere PSS (limited form) w/Crest syndrome variable --------- Nuclear Dot Sp100,[id number] Primary Biliary Cirrhosis --------- Nuclear GP210, Primary Biliary Cirrhosis Membrane freda A,B,C --------- ID Date Data Source [id number] 01/11/2021 07:26:00 AM EST [facility] Name Value Range Interpretation Code Description Data Shona rce(s) Supporting Document(s) Nuclear Ab [Titer] in Serum by Immunofluorescence Positive A [facility] Negative <1:80 Borderline 1:80 Positive >1:80 Nuclear Ab Pattern Homogenous [Titer] in Serum 1:160 H [facility] Note: COMMENT [facility] A positive ENZO result may occur in healt hy individuals (lowtiter) or be associated with a variety of diseases. Seeinterpretation chart which is not all inclusive:Pattern Antigen Detected Suggested Disease Association Homogeneous DNA(ds,ss), SLE - High titers Nucleosomes, Histones Drug-induced SLE Speckled Sm, COMMUNITY EDUCATION SPECIALIST, SCL-70, SLE,MCTD,PSS (diffuse form), SS-A/SS-B Sjogrens Nucleolar SCL-70, PM-1/SCL High titers Scleroderma, PM/DM Centromere Centromere PSS (limited form) w/Crest syndrome variable Nuclear Dot Sp100,[id number] Primary Biliary Cirrhosis Nuclear GP210, Primary Biliary CirrhosisMembrane freda A,B,C ID Date Data Source [id number] 01/11/2021 07:14:00 AM [facility] Name Value Range Interpretation Code Description Data Shona rce(s) Supporting Document(s) Sjogrens syndrome-A extractable nuclear Ab [Units/volume] in Serum <0.2 AI 0.0-0.9 [facility] Sjogrens syndrome-B extractable nuclear Ab [Units/volume] in Serum <0.2 AI 0.0-0.9 [facility] Ribonucleoprotein extractable nuclear Ab [Units/volume] in Serum 0.5 AI 0.0-0.9 [facility] Guerra extractable nuclear Ab [Units/volume] in Serum 0.2 AI 0.0-0 .9 [facility] DNA double strand Ab [Units/volume] in Serum 6 IU/mL 0-9 [facility] Negative <5 Equivocal 5 - 9 Positive >9 ID Date Data Source [id number] 01/08/2021 10:13:00 PM [facility] Name Value Range Interpretation Code Description Data Shona rce(s) Supporting Document(s) Erythrocyte sedimentation rate by Westergren method 2 mm/hr 0 - 15 [facility] SED RATE REENTER 2 [facility] ID Date Data Source [id number] 12/25/2020 06:15:00 PM [facility] [address] [place] [address] PHONE: [phone] FAX: [phone] Name .................. : GALE Mosher Acct Number.................. : [id number] ROOM. ................. : Number ................... : [id number] Stay type ............. : O/P Discharge Date......... ... : 12/25/20 Admit Date ......... : 12/25/20 Admit Phys .................... : MONTEJO HARD Date of ....... : 1985 Family Phys ................... : [employer] HARD Phone .................. : [phone] Age ................................ : 35 Film# .................. .:[id number] Sex ................................. : M Unsigned transcriptions are preliminary reports and do not represent a medical or legal document GALLBLADDER [id number] COMPLETE:12/25/20 07:48 KNB 4897 (REASON FOR ABDOMEN: RUQ PAIN GALLBLADDER ULTRASOUND, 12/25/20: FINDINGS: Fatty infiltration of the liver is seen without hepatic mass or biliary dilatation. There is mild hepatomegaly. There is a small area of fatty sparing is seen at liver parenchyma adjacent to the gallbladder fossa. Gallstone, gallbladder sludge, gallbladder wall thickening, or pericholecystic fluid is not seen. Common bile duct is within normal limits measuring 2.4 mm. Pancreas was obscured by overlying bowel gas. Mass, hydronephrosis, or calculus is not seen in the right kidney, which measured 12.2 x 5.1 x 5.9 cm. Ascites not seen. IMPRESSION: Fatty liver and mild hepatomegaly. Small focus of focal fatty sparing seen in liver parenchyma adjacent to gallbladder fossa. Non-visualization of the pancreas due to overlying bowel gas. Otherwise unremarkable right upper quadrant ultrasonography. Electronically Reviewed and Signed By Sophie Kong MD , 12/25/20 18:15, KGEbony Transcribe Initials: SSR, Transcribe Date: 12/25/20 09:38, Dictation Date: Copy for: [address] [place] [address] Page 1 of 1 Name Value Range Interpretation Code Description Data Shona rce(s) Supporting Document(s) ID Date Data Source [id number] 12/25/2020 06:15:00 PM [facility] [address] [place] [address] PHONE: [phone] FAX: [phone] Name .................. : GALE Mosher Acct Number.................. : [id number] ROOM. ................. : MR Number ................... : [id number] Stay type ............. : O/P Discharge Date......... ... : 12/25/20 Admit Date ......... : 12/25/20 Admit Phys .................... : MONTEJO HARD Date of ....... : 1985 Family Phys ................... : MONTEJO HARD Phone . ................. : [phone] Age ................................ : 35 Film# .................. .:[id number] Sex ................................. : M Unsigned transcriptions are preliminary reports and do not represent a medical or legal document CHEST 2 VIEWS 11325 COMPLETE:12/25/20 07:28 4898 (REASON FOR CHEST: COPD CHEST TWO VIEWS, 12/25/20: Comparison September 28, 2019. FINDINGS: The cardiac and mediastinal silhouettes appear normal and the lungs are clear. The bones and soft tissues are normal. The upper abdomen is unremarkable. IMPRESSION: No acute disease identifiable. Electronically Reviewed and Signed By Sophie Kong MD , 12/25/20 18:15, KGG Transcribe Initials: SSR, Transcribe Date: 12/25/20 09:37, Dictation Date: Copy for: [facility] REC Page 1 of 1 Name Value Range Interpretation Code Description Data Shona rce(s) Supporting Document(s) ID Date Data Source [id number] 12/25/2020 07:51:00 AM EST [facility] ([facility]) Name Value Range Interpretation Code Description Data Shona rce(s) Supporting Document(s) Alpha 1 antitrypsin [Mass/volume] in Serum or Plasma 140 mg/dL 95-16 4 [facility] ([facility]) .~.~<DG1.3.1>R10.811</DG1.3.1><DG1.3.1>R10.811</DG1.3.1><DG1.3.1>R10.811</DG1.3. 1><D {SOURCE: R~.~.~<DG1.3.1>R10.811</DG1.3.1><DG1.3.1>R10.811</DG1.3.1><DG1.3.1>R10.811</DG1. 3.1><D .~.~<DG1.3.1> R10.811</DG1.3.1><DG1.3.1>R10.811</DG1.3.1><DG1.3.1>R10.811</DG1.3.1><D .~.~<DG1.3.1>R10.811</DG1.3.1><DG1.3.1>R10.811</DG1.3.1><DG1.3.1>R10.811</DG1.3. 1><D Is patient fasting? N~.~.~<DG1.3.1> R10.811</DG1.3.1><DG1.3.1>R10.811</DG1.3.1><DG1.3.1>R10.811</ .~.~<DG1.3.1>R10.811</DG1.3.1><DG1.3.1>R10.811</DG1.3.1><DG1.3.1>R10.811</DG1.3. 1><D .~.~<DG1.3.1>R10.811</DG1.3.1><DG1.3.1> R10.811</DG1.3.1><DG1.3.1>R10.811</DG1.3.1><D .~.~<DG1.3.1>R10.811</DG1.3.1><DG1.3.1>R10.811</DG1.3.1><DG1.3.1>R10.811</DG1.3. 1><D .~.~<DG1.3.1>R10.811</DG1.3.1><DG1.3.1>R10.811</DG1.3.1><DG1.3.1> R10.811</DG1.3.1><D ID Date Data Source [id number] 12/25/2020 07:51:00 AM EST [facility] ([facility]) Name Value Range Interpretation Code Description Data Shona rce(s) Supporting Document(s) Laboratory test finding (navigational concept) Laboratory test r esult Abnormal (applies to non-numeric results) [facility] ([facility]) .~.~<DG1.3.1>R10.811</DG1.3.1><DG1.3.1>R10.811</DG1.3.1><DG1.3.1>R10.811</DG1.3. 1><D {SOURCE: R~.~.~<DG1.3.1>R10.811</DG1.3.1><DG1.3.1>R10.811</DG1.3.1><DG1.3.1>R10.811</DG1. 3.1><D .~.~<DG1.3.1> R10.811</DG1.3.1><DG1.3.1>R10.811</DG1.3.1><DG1.3.1>R10.811</DG1.3.1><D .~.~<DG1.3.1>R10.811</DG1.3.1><DG1.3.1>R10.811</DG1.3.1><DG1.3.1>R10.811</DG1.3. 1><D Is patient fasting? N~.~.~<DG1.3.1> R10.811</DG1.3.1><DG1.3.1>R10.811</DG1.3.1><DG1.3.1>R10.811</ .~.~<DG1.3.1>R10.811</DG1.3.1><DG1.3.1>R10.811</DG1.3.1><DG1.3.1>R10.811</DG1.3. 1><D .~.~<DG1.3.1>R10.811</DG1.3.1><DG1.3.1> R10.811</DG1.3.1><DG1.3.1>R10.811</DG1.3.1><D .~.~<DG1.3.1>R10.811</DG1.3.1><DG1.3.1>R10.811</DG1.3.1><DG1.3.1>R10.811</DG1.3. 1><D .~.~<DG1.3.1>R10.811</DG1.3.1><DG1.3.1>R10.811</DG1.3.1><DG1.3.1> R10.811</DG1.3.1><D Laboratory test finding (navigational concept) Laboratory test r esult Above high normal [facility] ([facility]) .~.~<DG1.3.1>R10.811</DG1.3.1><DG1.3.1>R10.811</DG1.3.1><DG1.3.1>R10.811</DG1.3. 1><D {SOURCE: R~.~.~<DG1.3.1>R10.811</DG1.3.1><DG1.3.1>R10.811</DG1.3.1><DG1.3.1>R10.811</DG1. 3.1><D .~.~<DG1.3.1> R10.811</DG1.3.1><DG1.3.1>R10.811</DG1.3.1><DG1.3.1>R10.811</DG1.3.1><D .~.~<DG1.3.1>R10.811</DG1.3.1><DG1.3.1>R10.811</DG1.3.1><DG1.3.1>R10.811</DG1.3. 1><D Is patient fasting? N~.~.~<DG1.3.1> R10.811</DG1.3.1><DG1.3.1>R10.811</DG1.3.1><DG1.3.1>R10.811</ .~.~<DG1.3.1>R10.811</DG1.3.1><DG1.3.1>R10.811</DG1.3.1><DG1.3.1>R10.811</DG1.3. 1><D .~.~<DG1.3.1>R10.811</DG1.3.1><DG1.3.1> R10.811</DG1.3.1><DG1.3.1>R10.811</DG1.3.1><D .~.~<DG1.3.1>R10.811</DG1.3.1><DG1.3.1>R10.811</DG1.3.1><DG1.3.1>R10.811</DG1.3. 1><D .~.~<DG1.3.1>R10.811</DG1.3.1><DG1.3.1>R10.811</DG1.3.1><DG1.3.1> R10.811</DG1.3.1><D Note: Laboratory test result [facility] ([facility]) .~.~<DG1.3.1>R10.811</DG1.3.1><DG1.3.1>R10.811</DG1.3.1><DG1.3.1>R10.811</DG1.3. 1><D {SOURCE: R~.~.~<DG1.3.1>R10.811</DG1.3.1><DG1.3.1>R10.811</DG1.3.1><DG1.3.1>R10.811</DG1. 3.1><D .~.~<DG1.3.1> R10.811</DG1.3.1><DG1.3.1>R10.811</DG1.3.1><DG1.3.1>R10.811</DG1.3.1><D .~.~<DG1.3.1>R10.811</DG1.3.1><DG1.3.1>R10.811</DG1.3.1><DG1.3.1>R10.811</DG1.3. 1><D Is patient fasting? N~.~.~<DG1.3.1> R10.811</DG1.3.1><DG1.3.1>R10.811</DG1.3.1><DG1.3.1>R10.811</ .~.~<DG1.3.1>R10.811</DG1.3.1><DG1.3.1>R10.811</DG1.3.1><DG1.3.1>R10.811</DG1.3. 1><D .~.~<DG1.3.1>R10.811</DG1.3.1><DG1.3.1> R10.811</DG1.3.1><DG1.3.1>R10.811</DG1.3.1><D .~.~<DG1.3.1>R10.811</DG1.3.1><DG1.3.1>R10.811</DG1.3.1><DG1.3.1>R10.811</DG1.3. 1><D .~.~<DG1.3.1>R10.811</DG1.3.1><DG1.3.1>R10.811</DG1.3.1><DG1.3.1> R10.811</DG1.3.1><D ID Date Data Source [id number] 12/25/2020 07:51:00 AM EST [facility] ([facility]) Name Value Range Interpretation Code Description Data Shona rce(s) Supporting Document(s) Sed Rate 1 mm/hr 0-15 [facility] ([facility]) .~.~<DG1.3.1>R10.811</DG1.3.1><DG1.3.1>R10.811</DG1.3.1><DG1.3.1>R10.811</DG1.3. 1><D {SOURCE: R~.~.~<DG1.3.1>R10.811</DG1.3.1><DG1.3.1>R10.811</DG1.3.1><DG1.3.1>R10.811</DG1. 3.1><D .~.~<DG1.3.1> R10.811</DG1.3.1><DG1.3.1>R10.811</DG1.3.1><DG1.3.1>R10.811</DG1.3.1><D .~.~<DG1.3.1>R10.811</DG1.3.1><DG1.3.1>R10.811</DG1.3.1><DG1.3.1>R10.811</DG1.3. 1><D Is patient fasting? N~.~.~<DG1.3.1> R10.811</DG1.3.1><DG1.3.1>R10.811</DG1.3.1><DG1.3.1>R10.811</ .~.~<DG1.3.1>R10.811</DG1.3.1><DG1.3.1>R10.811</DG1.3.1><DG1.3.1>R10.811</DG1.3. 1><D .~.~<DG1.3.1>R10.811</DG1.3.1><DG1.3.1> R10.811</DG1.3.1><DG1.3.1>R10.811</DG1.3.1><D .~.~<DG1.3.1>R10.811</DG1.3.1><DG1.3.1>R10.811</DG1.3.1><DG1.3.1>R10.811</DG1.3. 1><D .~.~<DG1.3.1>R10.811</DG1.3.1><DG1.3.1>R10.811</DG1.3.1><DG1.3.1> R10.811</DG1.3.1><D Sed Rate Reenter 1 [facility] ([facility]) .~.~<DG1.3.1>R10.811</DG1.3.1><DG1.3.1>R10.811</DG1.3.1><DG1.3.1>R10.811</DG1.3. 1><D {SOURCE: R~.~.~<DG1.3.1>R10.811</DG1.3.1><DG1.3.1>R10.811</DG1.3.1><DG1.3.1>R10.811</DG1. 3.1><D .~.~<DG1.3.1> R10.811</DG1.3.1><DG1.3.1>R10.811</DG1.3.1><DG1.3.1>R10.811</DG1.3.1><D .~.~<DG1.3.1>R10.811</DG1.3.1><DG1.3.1>R10.811</DG1.3.1><DG1.3.1>R10.811</DG1.3. 1><D Is patient fasting? N~.~.~<DG1.3.1> R10.811</DG1.3.1><DG1.3.1>R10.811</DG1.3.1><DG1.3.1>R10.811</ .~.~<DG1.3.1>R10.811</DG1.3.1><DG1.3.1>R10.811</DG1.3.1><DG1.3.1>R10.811</DG1.3. 1><D .~.~<DG1.3.1>R10.811</DG1.3.1><DG1.3.1> R10.811</DG1.3.1><DG1.3.1>R10.811</DG1.3.1><D .~.~<DG1.3.1>R10.811</DG1.3.1><DG1.3.1>R10.811</DG1.3.1><DG1.3.1>R10.811</DG1.3. 1><D .~.~<DG1.3.1>R10.811</DG1.3.1><DG1.3.1>R10.811</DG1.3.1><DG1.3.1> R10.811</DG1.3.1><D ID Date Data Source [id number] 12/25/2020 07:51:00 AM [facility]) Name Value Range Interpretation Code Description Data Shona rce(s) Supporting Document(s) Helicobacter pylori [Presence] in [place] by urea joel th test Laboratory test result [facility] ([facility] [place]) .~.~<DG1.3.1>R10.811</DG1.3.1><DG1.3.1>R10.811</DG1.3.1><DG1.3.1>R10.811</DG1.3. 1><D {SOURCE: R~.~.~<DG1.3.1>R10.811</DG1.3.1><DG1.3.1>R10.811</DG1.3.1><DG1.3.1>R10.811</DG1. 3.1><D .~.~<DG1.3.1> R10.811</DG1.3.1><DG1.3.1>R10.811</DG1.3.1><DG1.3.1>R10.811</DG1.3.1><D .~.~<DG1.3.1>R10.811</DG1.3.1><DG1.3.1>R10.811</DG1.3.1><DG1.3.1>R10.811</DG1.3. 1><D Is patient fasting? N~.~.~<DG1.3.1> R10.811</DG1.3.1><DG1.3.1>R10.811</DG1.3.1><DG1.3.1>R10.811</ .~.~<DG1.3.1>R10.811</DG1.3.1><DG1.3.1>R10.811</DG1.3.1><DG1.3.1>R10.811</DG1.3. 1><D .~.~<DG1.3.1>R10.811</DG1.3.1><DG1.3.1> R10.811</DG1.3.1><DG1.3.1>R10.811</DG1.3.1><D .~.~<DG1.3.1>R10.811</DG1.3.1><DG1.3.1>R10.811</DG1.3.1><DG1.3.1>R10.811</DG1.3. 1><D .~.~<DG1.3.1>R10.811</DG1.3.1><DG1.3.1>R10.811</DG1.3.1><DG1.3.1> R10.811</DG1.3.1><D Amylase [Enzymatic activity/volume] in Serum or Plasma 38 U/L 30- 110 [facility] ([facility]) .~.~<DG1.3.1>R10.811</DG1.3.1><DG1.3.1>R10.811</DG1.3.1><DG1.3.1>R10.811</DG1.3. 1><D {SOURCE: R~.~.~<DG1.3.1>R10.811</DG1.3.1><DG1.3.1>R10.811</DG1.3.1><DG1.3.1>R10.811</DG1. 3.1><D .~.~<DG1.3.1> R10.811</DG1.3.1><DG1.3.1>R10.811</DG1.3.1><DG1.3.1>R10.811</DG1.3.1><D .~.~<DG1.3.1>R10.811</DG1.3.1><DG1.3.1>R10.811</DG1.3.1><DG1.3.1>R10.811</DG1.3. 1><D Is patient fasting? N~.~.~<DG1.3.1> R10.811</DG1.3.1><DG1.3.1>R10.811</DG1.3.1><DG1.3.1>R10.811</ .~.~<DG1.3.1>R10.811</DG1.3.1><DG1.3.1>R10.811</DG1.3.1><DG1.3.1>R10.811</DG1.3. 1><D .~.~<DG1.3.1>R10.811</DG1.3.1><DG1.3.1> R10.811</DG1.3.1><DG1.3.1>R10.811</DG1.3.1><D .~.~<DG1.3.1>R10.811</DG1.3.1><DG1.3.1>R10.811</DG1.3.1><DG1.3.1>R10.811</DG1.3. 1><D .~.~<DG1.3.1>R10.811</DG1.3.1><DG1.3.1>R10.811</DG1.3.1><DG1.3.1> R10.811</DG1.3.1><D C reactive protein [Mass/volume] in Serum or Plasma by High sensitivity method 4.65 mg/L 1.00-3.00 Above high normal [facility] ([facility]) .~.~<DG1.3.1>R10.811</DG1.3.1><DG1.3.1>R10.811</DG1.3.1><DG1.3.1>R10.811</DG1.3. 1><D {SOURCE: R~.~.~<DG1.3.1>R10.811</DG1.3.1><DG1.3.1>R10.811</DG1.3.1><DG1.3.1>R10.811</DG1. 3.1><D .~.~<DG1.3.1> R10.811</DG1.3.1><DG1.3.1>R10.811</DG1.3.1><DG1.3.1>R10.811</DG1.3.1><D .~.~<DG1.3.1>R10.811</DG1.3.1><DG1.3.1>R10.811</DG1.3.1><DG1.3.1>R10.811</DG1.3. 1><D Is patient fasting? N~.~.~<DG1.3.1> R10.811</DG1.3.1><DG1.3.1>R10.811</DG1.3.1><DG1.3.1>R10.811</ .~.~<DG1.3.1>R10.811</DG1.3.1><DG1.3.1>R10.811</DG1.3.1><DG1.3.1>R10.811</DG1.3. 1><D .~.~<DG1.3.1>R10.811</DG1.3.1><DG1.3.1> R10.811</DG1.3.1><DG1.3.1>R10.811</DG1.3.1><D .~.~<DG1.3.1>R10.811</DG1.3.1><DG1.3.1>R10.811</DG1.3.1><DG1.3.1>R10.811</DG1.3. 1><D .~.~<DG1.3.1>R10.811</DG1.3.1><DG1.3.1>R10.811</DG1.3.1><DG1.3.1> R10.811</DG1.3.1><D ID Date Data Source [id number] 12/25/2020 07:51:00 AM EST [facility] ([facility]) Name Value Range Interpretation Code Description Data Shona rce(s) Supporting Document(s) Urinalysis Laboratory test result [facility] ([facility]) .~.~<DG1.3.1>R10.811</DG1.3.1><DG1.3.1>R10.811</DG1.3.1><DG1.3.1>R10.811</DG1.3. 1><D {SOURCE: R~.~.~<DG1.3.1>R10.811</DG1.3.1><DG1.3.1>R10.811</DG1.3.1><DG1.3.1>R10.811</DG1. 3.1><D .~.~<DG1.3.1> R10.811</DG1.3.1><DG1.3.1>R10.811</DG1.3.1><DG1.3.1>R10.811</DG1.3.1><D .~.~<DG1.3.1>R10.811</DG1.3.1><DG1.3.1>R10.811</DG1.3.1><DG1.3.1>R10.811</DG1.3. 1><D Is patient fasting? N~.~.~<DG1.3.1> R10.811</DG1.3.1><DG1.3.1>R10.811</DG1.3.1><DG1.3.1>R10.811</ .~.~<DG1.3.1>R10.811</DG1.3.1><DG1.3.1>R10.811</DG1.3.1><DG1.3.1>R10.811</DG1.3. 1><D .~.~<DG1.3.1>R10.811</DG1.3.1><DG1.3.1> R10.811</DG1.3.1><DG1.3.1>R10.811</DG1.3.1><D .~.~<DG1.3.1>R10.811</DG1.3.1><DG1.3.1>R10.811</DG1.3.1><DG1.3.1>R10.811</DG1.3. 1><D .~.~<DG1.3.1>R10.811</DG1.3.1><DG1.3.1>R10.811</DG1.3.1><DG1.3.1> R10.811</DG1.3.1><D Source Laboratory test result [facility] ([facility]) .~.~<DG1.3.1>R10.811</DG1.3.1><DG1.3.1>R10.811</DG1.3.1><DG1.3.1>R10.811</DG1.3. 1><D {SOURCE: R~.~.~<DG1.3.1>R10.811</DG1.3.1><DG1.3.1>R10.811</DG1.3.1><DG1.3.1>R10.811</DG1. 3.1><D .~.~<DG1.3.1> R10.811</DG1.3.1><DG1.3.1>R10.811</DG1.3.1><DG1.3.1>R10.811</DG1.3.1><D .~.~<DG1.3.1>R10.811</DG1.3.1><DG1.3.1>R10.811</DG1.3.1><DG1.3.1>R10.811</DG1.3. 1><D Is patient fasting? N~.~.~<DG1.3.1> R10.811</DG1.3.1><DG1.3.1>R10.811</DG1.3.1><DG1.3.1>R10.811</ .~.~<DG1.3.1>R10.811</DG1.3.1><DG1.3.1>R10.811</DG1.3.1><DG1.3.1>R10.811</DG1.3. 1><D .~.~<DG1.3.1>R10.811</DG1.3.1><DG1.3.1> R10.811</DG1.3.1><DG1.3.1>R10.811</DG1.3.1><D .~.~<DG1.3.1>R10.811</DG1.3.1><DG1.3.1>R10.811</DG1.3.1><DG1.3.1>R10.811</DG1.3. 1><D .~.~<DG1.3.1>R10.811</DG1.3.1><DG1.3.1>R10.811</DG1.3.1><DG1.3.1> R10.811</DG1.3.1><D Clarity Laboratory test result [facility] ([facility]) .~.~<DG1.3.1>R10.811</DG1.3.1><DG1.3.1>R10.811</DG1.3.1><DG1.3.1>R10.811</DG1.3. 1><D {SOURCE: R~.~.~<DG1.3.1>R10.811</DG1.3.1><DG1.3.1>R10.811</DG1.3.1><DG1.3.1>R10.811</DG1. 3.1><D .~.~<DG1.3.1> R10.811</DG1.3.1><DG1.3.1>R10.811</DG1.3.1><DG1.3.1>R10.811</DG1.3.1><D .~.~<DG1.3.1>R10.811</DG1.3.1><DG1.3.1>R10.811</DG1.3.1><DG1.3.1>R10.811</DG1.3. 1><D Is patient fasting? N~.~.~<DG1.3.1> R10.811</DG1.3.1><DG1.3.1>R10.811</DG1.3.1><DG1.3.1>R10.811</ .~.~<DG1.3.1>R10.811</DG1.3.1><DG1.3.1>R10.811</DG1.3.1><DG1.3.1>R10.811</DG1.3. 1><D .~.~<DG1.3.1>R10.811</DG1.3.1><DG1.3.1> R10.811</DG1.3.1><DG1.3.1>R10.811</DG1.3.1><D .~.~<DG1.3.1>R10.811</DG1.3.1><DG1.3.1>R10.811</DG1.3.1><DG1.3.1>R10.811</DG1.3. 1><D .~.~<DG1.3.1>R10.811</DG1.3.1><DG1.3.1>R10.811</DG1.3.1><DG1.3.1> R10.811</DG1.3.1><D Color Laboratory test result [facility] ([facility]) .~.~<DG1.3.1>R10.811</DG1.3.1><DG1.3.1>R10.811</DG1.3.1><DG1.3.1>R10.811</DG1.3. 1><D {SOURCE: R~.~.~<DG1.3.1>R10.811</DG1.3.1><DG1.3.1>R10.811</DG1.3.1><DG1.3.1>R10.811</DG1. 3.1><D .~.~<DG1.3.1> R10.811</DG1.3.1><DG1.3.1>R10.811</DG1.3.1><DG1.3.1>R10.811</DG1.3.1><D .~.~<DG1.3.1>R10.811</DG1.3.1><DG1.3.1>R10.811</DG1.3.1><DG1.3.1>R10.811</DG1.3. 1><D Is patient fasting? N~.~.~<DG1.3.1> R10.811</DG1.3.1><DG1.3.1>R10.811</DG1.3.1><DG1.3.1>R10.811</ .~.~<DG1.3.1>R10.811</DG1.3.1><DG1.3.1>R10.811</DG1.3.1><DG1.3.1>R10.811</DG1.3. 1><D .~.~<DG1.3.1>R10.811</DG1.3.1><DG1.3.1> R10.811</DG1.3.1><DG1.3.1>R10.811</DG1.3.1><D .~.~<DG1.3.1>R10.811</DG1.3.1><DG1.3.1>R10.811</DG1.3.1><DG1.3.1>R10.811</DG1.3. 1><D .~.~<DG1.3.1>R10.811</DG1.3.1><DG1.3.1>R10.811</DG1.3.1><DG1.3.1> R10.811</DG1.3.1><D Spec [place] 1.015 1.001-1.030 [facility]) .~.~<DG1.3.1>R10.811</DG1.3.1><DG1.3.1>R10.811</DG1.3.1><DG1.3.1>R10.811</DG1.3. 1><D {SOURCE: R~.~.~<DG1.3.1>R10.811</DG1.3.1><DG1.3.1>R10.811</DG1.3.1><DG1.3.1>R10.811</DG1. 3.1><D .~.~<DG1.3.1> R10.811</DG1.3.1><DG1.3.1>R10.811</DG1.3.1><DG1.3.1>R10.811</DG1.3.1><D .~.~<DG1.3.1>R10.811</DG1.3.1><DG1.3.1>R10.811</DG1.3.1><DG1.3.1>R10.811</DG1.3. 1><D Is patient fasting? N~.~.~<DG1.3.1> R10.811</DG1.3.1><DG1.3.1>R10.811</DG1.3.1><DG1.3.1>R10.811</ .~.~<DG1.3.1>R10.811</DG1.3.1><DG1.3.1>R10.811</DG1.3.1><DG1.3.1>R10.811</DG1.3. 1><D .~.~<DG1.3.1>R10.811</DG1.3.1><DG1.3.1> R10.811</DG1.3.1><DG1.3.1>R10.811</DG1.3.1><D .~.~<DG1.3.1>R10.811</DG1.3.1><DG1.3.1>R10.811</DG1.3.1><DG1.3.1>R10.811</DG1.3. 1><D .~.~<DG1.3.1>R10.811</DG1.3.1><DG1.3.1>R10.811</DG1.3.1><DG1.3.1> R10.811</DG1.3.1><D pH 7 5-9 [facility] ([facility]) .~.~<DG1.3.1>R10.811</DG1.3.1><DG1.3.1>R10.811</DG1.3.1><DG1.3.1>R10.811</DG1.3. 1><D {SOURCE: R~.~.~<DG1.3.1>R10.811</DG1.3.1><DG1.3.1>R10.811</DG1.3.1><DG1.3.1>R10.811</DG1. 3.1><D .~.~<DG1.3.1> R10.811</DG1.3.1><DG1.3.1>R10.811</DG1.3.1><DG1.3.1>R10.811</DG1.3.1><D .~.~<DG1.3.1>R10.811</DG1.3.1><DG1.3.1>R10.811</DG1.3.1><DG1.3.1>R10.811</DG1.3. 1><D Is patient fasting? N~.~.~<DG1.3.1> R10.811</DG1.3.1><DG1.3.1>R10.811</DG1.3.1><DG1.3.1>R10.811</ .~.~<DG1.3.1>R10.811</DG1.3.1><DG1.3.1>R10.811</DG1.3.1><DG1.3.1>R10.811</DG1.3. 1><D .~.~<DG1.3.1>R10.811</DG1.3.1><DG1.3.1> R10.811</DG1.3.1><DG1.3.1>R10.811</DG1.3.1><D .~.~<DG1.3.1>R10.811</DG1.3.1><DG1.3.1>R10.811</DG1.3.1><DG1.3.1>R10.811</DG1.3. 1><D .~.~<DG1.3.1>R10.811</DG1.3.1><DG1.3.1>R10.811</DG1.3.1><DG1.3.1> R10.811</DG1.3.1><D Glucose Laboratory test result [facility] ([facility]) .~.~<DG1.3.1>R10.811</DG1.3.1><DG1.3.1>R10.811</DG1.3.1><DG1.3.1>R10.811</DG1.3. 1><D {SOURCE: R~.~.~<DG1.3.1>R10.811</DG1.3.1><DG1.3.1>R10.811</DG1.3.1><DG1.3.1>R10.811</DG1. 3.1><D .~.~<DG1.3.1> R10.811</DG1.3.1><DG1.3.1>R10.811</DG1.3.1><DG1.3.1>R10.811</DG1.3.1><D .~.~<DG1.3.1>R10.811</DG1.3.1><DG1.3.1>R10.811</DG1.3.1><DG1.3.1>R10.811</DG1.3. 1><D Is patient fasting? N~.~.~<DG1.3.1> R10.811</DG1.3.1><DG1.3.1>R10.811</DG1.3.1><DG1.3.1>R10.811</ .~.~<DG1.3.1>R10.811</DG1.3.1><DG1.3.1>R10.811</DG1.3.1><DG1.3.1>R10.811</DG1.3. 1><D .~.~<DG1.3.1>R10.811</DG1.3.1><DG1.3.1> R10.811</DG1.3.1><DG1.3.1>R10.811</DG1.3.1><D .~.~<DG1.3.1>R10.811</DG1.3.1><DG1.3.1>R10.811</DG1.3.1><DG1.3.1>R10.811</DG1.3. 1><D .~.~<DG1.3.1>R10.811</DG1.3.1><DG1.3.1>R10.811</DG1.3.1><DG1.3.1> R10.811</DG1.3.1><D Bilirubin Laboratory test result [facility] ([facility]) .~.~<DG1.3.1>R10.811</DG1.3.1><DG1.3.1>R10.811</DG1.3.1><DG1.3.1>R10.811</DG1.3. 1><D {SOURCE: R~.~.~<DG1.3.1>R10.811</DG1.3.1><DG1.3.1>R10.811</DG1.3.1><DG1.3.1>R10.811</DG1. 3.1><D .~.~<DG1.3.1> R10.811</DG1.3.1><DG1.3.1>R10.811</DG1.3.1><DG1.3.1>R10.811</DG1.3.1><D .~.~<DG1.3.1>R10.811</DG1.3.1><DG1.3.1>R10.811</DG1.3.1><DG1.3.1>R10.811</DG1.3. 1><D Is patient fasting? N~.~.~<DG1.3.1> R10.811</DG1.3.1><DG1.3.1>R10.811</DG1.3.1><DG1.3.1>R10.811</ .~.~<DG1.3.1>R10.811</DG1.3.1><DG1.3.1>R10.811</DG1.3.1><DG1.3.1>R10.811</DG1.3. 1><D .~.~<DG1.3.1>R10.811</DG1.3.1><DG1.3.1> R10.811</DG1.3.1><DG1.3.1>R10.811</DG1.3.1><D .~.~<DG1.3.1>R10.811</DG1.3.1><DG1.3.1>R10.811</DG1.3.1><DG1.3.1>R10.811</DG1.3. 1><D .~.~<DG1.3.1>R10.811</DG1.3.1><DG1.3.1>R10.811</DG1.3.1><DG1.3.1> R10.811</DG1.3.1><D Ketone Laboratory test result [facility] ([facility]) .~.~<DG1.3.1>R10.811</DG1.3.1><DG1.3.1>R10.811</DG1.3.1><DG1.3.1>R10.811</DG1.3. 1><D {SOURCE: R~.~.~<DG1.3.1>R10.811</DG1.3.1><DG1.3.1>R10.811</DG1.3.1><DG1.3.1>R10.811</DG1. 3.1><D .~.~<DG1.3.1> R10.811</DG1.3.1><DG1.3.1>R10.811</DG1.3.1><DG1.3.1>R10.811</DG1.3.1><D .~.~<DG1.3.1>R10.811</DG1.3.1><DG1.3.1>R10.811</DG1.3.1><DG1.3.1>R10.811</DG1.3. 1><D Is patient fasting? N~.~.~<DG1.3.1> R10.811</DG1.3.1><DG1.3.1>R10.811</DG1.3.1><DG1.3.1>R10.811</ .~.~<DG1.3.1>R10.811</DG1.3.1><DG1.3.1>R10.811</DG1.3.1><DG1.3.1>R10.811</DG1.3. 1><D .~.~<DG1.3.1>R10.811</DG1.3.1><DG1.3.1> R10.811</DG1.3.1><DG1.3.1>R10.811</DG1.3.1><D .~.~<DG1.3.1>R10.811</DG1.3.1><DG1.3.1>R10.811</DG1.3.1><DG1.3.1>R10.811</DG1.3. 1><D .~.~<DG1.3.1>R10.811</DG1.3.1><DG1.3.1>R10.811</DG1.3.1><DG1.3.1> R10.811</DG1.3.1><D Protein Laboratory test result [facility] ([facility]) .~.~<DG1.3.1>R10.811</DG1.3.1><DG1.3.1>R10.811</DG1.3.1><DG1.3.1>R10.811</DG1.3. 1><D {SOURCE: R~.~.~<DG1.3.1>R10.811</DG1.3.1><DG1.3.1>R10.811</DG1.3.1><DG1.3.1>R10.811</DG1. 3.1><D .~.~<DG1.3.1> R10.811</DG1.3.1><DG1.3.1>R10.811</DG1.3.1><DG1.3.1>R10.811</DG1.3.1><D .~.~<DG1.3.1>R10.811</DG1.3.1><DG1.3.1>R10.811</DG1.3.1><DG1.3.1>R10.811</DG1.3. 1><D Is patient fasting? N~.~.~<DG1.3.1> R10.811</DG1.3.1><DG1.3.1>R10.811</DG1.3.1><DG1.3.1>R10.811</ .~.~<DG1.3.1>R10.811</DG1.3.1><DG1.3.1>R10.811</DG1.3.1><DG1.3.1>R10.811</DG1.3. 1><D .~.~<DG1.3.1>R10.811</DG1.3.1><DG1.3.1> R10.811</DG1.3.1><DG1.3.1>R10.811</DG1.3.1><D .~.~<DG1.3.1>R10.811</DG1.3.1><DG1.3.1>R10.811</DG1.3.1><DG1.3.1>R10.811</DG1.3. 1><D .~.~<DG1.3.1>R10.811</DG1.3.1><DG1.3.1>R10.811</DG1.3.1><DG1.3.1> R10.811</DG1.3.1><D Nitrite Laboratory test result [facility] ([facility]) .~.~<DG1.3.1>R10.811</DG1.3.1><DG1.3.1>R10.811</DG1.3.1><DG1.3.1>R10.811</DG1.3. 1><D {SOURCE: R~.~.~<DG1.3.1>R10.811</DG1.3.1><DG1.3.1>R10.811</DG1.3.1><DG1.3.1>R10.811</DG1. 3.1><D .~.~<DG1.3.1> R10.811</DG1.3.1><DG1.3.1>R10.811</DG1.3.1><DG1.3.1>R10.811</DG1.3.1><D .~.~<DG1.3.1>R10.811</DG1.3.1><DG1.3.1>R10.811</DG1.3.1><DG1.3.1>R10.811</DG1.3. 1><D Is patient fasting? N~.~.~<DG1.3.1> R10.811</DG1.3.1><DG1.3.1>R10.811</DG1.3.1><DG1.3.1>R10.811</ .~.~<DG1.3.1>R10.811</DG1.3.1><DG1.3.1>R10.811</DG1.3.1><DG1.3.1>R10.811</DG1.3. 1><D .~.~<DG1.3.1>R10.811</DG1.3.1><DG1.3.1> R10.811</DG1.3.1><DG1.3.1>R10.811</DG1.3.1><D .~.~<DG1.3.1>R10.811</DG1.3.1><DG1.3.1>R10.811</DG1.3.1><DG1.3.1>R10.811</DG1.3. 1><D .~.~<DG1.3.1>R10.811</DG1.3.1><DG1.3.1>R10.811</DG1.3.1><DG1.3.1> R10.811</DG1.3.1><D Blood Laboratory test result [facility] ([facility]) .~.~<DG1.3.1>R10.811</DG1.3.1><DG1.3.1>R10.811</DG1.3.1><DG1.3.1>R10.811</DG1.3. 1><D {SOURCE: R~.~.~<DG1.3.1>R10.811</DG1.3.1><DG1.3.1>R10.811</DG1.3.1><DG1.3.1>R10.811</DG1. 3.1><D .~.~<DG1.3.1> R10.811</DG1.3.1><DG1.3.1>R10.811</DG1.3.1><DG1.3.1>R10.811</DG1.3.1><D .~.~<DG1.3.1>R10.811</DG1.3.1><DG1.3.1>R10.811</DG1.3.1><DG1.3.1>R10.811</DG1.3. 1><D Is patient fasting? N~.~.~<DG1.3.1> R10.811</DG1.3.1><DG1.3.1>R10.811</DG1.3.1><DG1.3.1>R10.811</ .~.~<DG1.3.1>R10.811</DG1.3.1><DG1.3.1>R10.811</DG1.3.1><DG1.3.1>R10.811</DG1.3. 1><D .~.~<DG1.3.1>R10.811</DG1.3.1><DG1.3.1> R10.811</DG1.3.1><DG1.3.1>R10.811</DG1.3.1><D .~.~<DG1.3.1>R10.811</DG1.3.1><DG1.3.1>R10.811</DG1.3.1><DG1.3.1>R10.811</DG1.3. 1><D .~.~<DG1.3.1>R10.811</DG1.3.1><DG1.3.1>R10.811</DG1.3.1><DG1.3.1> R10.811</DG1.3.1><D Leuk Est Laboratory test result [facility] ([facility]) .~.~<DG1.3.1>R10.811</DG1.3.1><DG1.3.1>R10.811</DG1.3.1><DG1.3.1>R10.811</DG1.3. 1><D {SOURCE: R~.~.~<DG1.3.1>R10.811</DG1.3.1><DG1.3.1>R10.811</DG1.3.1><DG1.3.1>R10.811</DG1. 3.1><D .~.~<DG1.3.1> R10.811</DG1.3.1><DG1.3.1>R10.811</DG1.3.1><DG1.3.1>R10.811</DG1.3.1><D .~.~<DG1.3.1>R10.811</DG1.3.1><DG1.3.1>R10.811</DG1.3.1><DG1.3.1>R10.811</DG1.3. 1><D Is patient fasting? N~.~.~<DG1.3.1> R10.811</DG1.3.1><DG1.3.1>R10.811</DG1.3.1><DG1.3.1>R10.811</ .~.~<DG1.3.1>R10.811</DG1.3.1><DG1.3.1>R10.811</DG1.3.1><DG1.3.1>R10.811</DG1.3. 1><D .~.~<DG1.3.1>R10.811</DG1.3.1><DG1.3.1> R10.811</DG1.3.1><DG1.3.1>R10.811</DG1.3.1><D .~.~<DG1.3.1>R10.811</DG1.3.1><DG1.3.1>R10.811</DG1.3.1><DG1.3.1>R10.811</DG1.3. 1><D .~.~<DG1.3.1>R10.811</DG1.3.1><DG1.3.1>R10.811</DG1.3.1><DG1.3.1> R10.811</DG1.3.1><D Urobilinogen Laboratory test result [facility] ([facility]) .~.~<DG1.3.1>R10.811</DG1.3.1><DG1.3.1>R10.811</DG1.3.1><DG1.3.1>R10.811</DG1.3. 1><D {SOURCE: R~.~.~<DG1.3.1>R10.811</DG1.3.1><DG1.3.1>R10.811</DG1.3.1><DG1.3.1>R10.811</DG1. 3.1><D .~.~<DG1.3.1> R10.811</DG1.3.1><DG1.3.1>R10.811</DG1.3.1><DG1.3.1>R10.811</DG1.3.1><D .~.~<DG1.3.1>R10.811</DG1.3.1><DG1.3.1>R10.811</DG1.3.1><DG1.3.1>R10.811</DG1.3. 1><D Is patient fasting? N~.~.~<DG1.3.1> R10.811</DG1.3.1><DG1.3.1>R10.811</DG1.3.1><DG1.3.1>R10.811</ .~.~<DG1.3.1>R10.811</DG1.3.1><DG1.3.1>R10.811</DG1.3.1><DG1.3.1>R10.811</DG1.3. 1><D .~.~<DG1.3.1>R10.811</DG1.3.1><DG1.3.1> R10.811</DG1.3.1><DG1.3.1>R10.811</DG1.3.1><D .~.~<DG1.3.1>R10.811</DG1.3.1><DG1.3.1>R10.811</DG1.3.1><DG1.3.1>R10.811</DG1.3. 1><D .~.~<DG1.3.1>R10.811</DG1.3.1><DG1.3.1>R10.811</DG1.3.1><DG1.3.1> R10.811</DG1.3.1><D Microscopic Laboratory test result [facility] ([facility]) .~.~<DG1.3.1>R10.811</DG1.3.1><DG1.3.1>R10.811</DG1.3.1><DG1.3.1>R10.811</DG1.3. 1><D {SOURCE: R~.~.~<DG1.3.1>R10.811</DG1.3.1><DG1.3.1>R10.811</DG1.3.1><DG1.3.1>R10.811</DG1. 3.1><D .~.~<DG1.3.1> R10.811</DG1.3.1><DG1.3.1>R10.811</DG1.3.1><DG1.3.1>R10.811</DG1.3.1><D .~.~<DG1.3.1>R10.811</DG1.3.1><DG1.3.1>R10.811</DG1.3.1><DG1.3.1>R10.811</DG1.3. 1><D Is patient fasting? N~.~.~<DG1.3.1> R10.811</DG1.3.1><DG1.3.1>R10.811</DG1.3.1><DG1.3.1>R10.811</ .~.~<DG1.3.1>R10.811</DG1.3.1><DG1.3.1>R10.811</DG1.3.1><DG1.3.1>R10.811</DG1.3. 1><D .~.~<DG1.3.1>R10.811</DG1.3.1><DG1.3.1> R10.811</DG1.3.1><DG1.3.1>R10.811</DG1.3.1><D .~.~<DG1.3.1>R10.811</DG1.3.1><DG1.3.1>R10.811</DG1.3.1><DG1.3.1>R10.811</DG1.3. 1><D .~.~<DG1.3.1>R10.811</DG1.3.1><DG1.3.1>R10.811</DG1.3.1><DG1.3.1> R10.811</DG1.3.1><D ID Date Data Source [id number] 12/25/2020 07:51:00 AM EST [facility] ([facility]) Name Value Range Interpretation Code Description Data Shona rce(s) Supporting Document(s) Lipase [Enzymatic activity/volume] in Serum or Plasma 31 U/L 13-6 0 [facility] ([facility]) .~.~<DG1.3.1>R10.811</DG1.3.1><DG1.3.1>R10.811</DG1.3.1><DG1.3.1>R10.811</DG1.3. 1><D {SOURCE: R~.~.~<DG1.3.1>R10.811</DG1.3.1><DG1.3.1>R10.811</DG1.3.1><DG1.3.1>R10.811</DG1. 3.1><D .~.~<DG1.3.1> R10.811</DG1.3.1><DG1.3.1>R10.811</DG1.3.1><DG1.3.1>R10.811</DG1.3.1><D .~.~<DG1.3.1>R10.811</DG1.3.1><DG1.3.1>R10.811</DG1.3.1><DG1.3.1>R10.811</DG1.3. 1><D Is patient fasting? N~.~.~<DG1.3.1> R10.811</DG1.3.1><DG1.3.1>R10.811</DG1.3.1><DG1.3.1>R10.811</ .~.~<DG1.3.1>R10.811</DG1.3.1><DG1.3.1>R10.811</DG1.3.1><DG1.3.1>R10.811</DG1.3. 1><D .~.~<DG1.3.1>R10.811</DG1.3.1><DG1.3.1> R10.811</DG1.3.1><DG1.3.1>R10.811</DG1.3.1><D .~.~<DG1.3.1>R10.811</DG1.3.1><DG1.3.1>R10.811</DG1.3.1><DG1.3.1>R10.811</DG1.3. 1><D .~.~<DG1.3.1>R10.811</DG1.3.1><DG1.3.1>R10.811</DG1.3.1><DG1.3.1> R10.811</DG1.3.1><D ID Date Data Source [id number] 12/25/2020 07:51:00 AM EST [facility] ([facility]) Name Value Range Interpretation Code Description Data Shona rce(s) Supporting Document(s) CBC W/Automated Diff Laboratory test result [facility] ([facility]) .~.~<DG1.3.1>R10.811</DG1.3.1><DG1.3.1>R10.811</DG1.3.1><DG1.3.1>R10.811</DG1.3. 1><D {SOURCE: R~.~.~<DG1.3.1>R10.811</DG1.3.1><DG1.3.1>R10.811</DG1.3.1><DG1.3.1>R10.811</DG1. 3.1><D .~.~<DG1.3.1> R10.811</DG1.3.1><DG1.3.1>R10.811</DG1.3.1><DG1.3.1>R10.811</DG1.3.1><D .~.~<DG1.3.1>R10.811</DG1.3.1><DG1.3.1>R10.811</DG1.3.1><DG1.3.1>R10.811</DG1.3. 1><D Is patient fasting? N~.~.~<DG1.3.1> R10.811</DG1.3.1><DG1.3.1>R10.811</DG1.3.1><DG1.3.1>R10.811</ .~.~<DG1.3.1>R10.811</DG1.3.1><DG1.3.1>R10.811</DG1.3.1><DG1.3.1>R10.811</DG1.3. 1><D .~.~<DG1.3.1>R10.811</DG1.3.1><DG1.3.1> R10.811</DG1.3.1><DG1.3.1>R10.811</DG1.3.1><D .~.~<DG1.3.1>R10.811</DG1.3.1><DG1.3.1>R10.811</DG1.3.1><DG1.3.1>R10.811</DG1.3. 1><D .~.~<DG1.3.1>R10.811</DG1.3.1><DG1.3.1>R10.811</DG1.3.1><DG1.3.1> R10.811</DG1.3.1><D WBC 6.8 10^3/uL 4.2-11.0 [facility]) .~.~<DG1.3.1>R10.811</DG1.3.1><DG1.3.1>R10.811</DG1.3.1><DG1.3.1>R10.811</DG1.3. 1><D {SOURCE: R~.~.~<DG1.3.1>R10.811</DG1.3.1><DG1.3.1>R10.811</DG1.3.1><DG1.3.1>R10.811</DG1. 3.1><D .~.~<DG1.3.1> R10.811</DG1.3.1><DG1.3.1>R10.811</DG1.3.1><DG1.3.1>R10.811</DG1.3.1><D .~.~<DG1.3.1>R10.811</DG1.3.1><DG1.3.1>R10.811</DG1.3.1><DG1.3.1>R10.811</DG1.3. 1><D Is patient fasting? N~.~.~<DG1.3.1> R10.811</DG1.3.1><DG1.3.1>R10.811</DG1.3.1><DG1.3.1>R10.811</ .~.~<DG1.3.1>R10.811</DG1.3.1><DG1.3.1>R10.811</DG1.3.1><DG1.3.1>R10.811</DG1.3. 1><D .~.~<DG1.3.1>R10.811</DG1.3.1><DG1.3.1> R10.811</DG1.3.1><DG1.3.1>R10.811</DG1.3.1><D .~.~<DG1.3.1>R10.811</DG1.3.1><DG1.3.1>R10.811</DG1.3.1><DG1.3.1>R10.811</DG1.3. 1><D .~.~<DG1.3.1>R10.811</DG1.3.1><DG1.3.1>R10.811</DG1.3.1><DG1.3.1> R10.811</DG1.3.1><D RBC 6.02 10^6/uL 4.50-6.30 [facility] ([facility]) .~.~<DG1.3.1>R10.811</DG1.3.1><DG1.3.1>R10.811</DG1.3.1><DG1.3.1>R10.811</DG1.3. 1><D {SOURCE: R~.~.~<DG1.3.1>R10.811</DG1.3.1><DG1.3.1>R10.811</DG1.3.1><DG1.3.1>R10.811</DG1. 3.1><D .~.~<DG1.3.1> R10.811</DG1.3.1><DG1.3.1>R10.811</DG1.3.1><DG1.3.1>R10.811</DG1.3.1><D .~.~<DG1.3.1>R10.811</DG1.3.1><DG1.3.1>R10.811</DG1.3.1><DG1.3.1>R10.811</DG1.3. 1><D Is patient fasting? N~.~.~<DG1.3.1> R10.811</DG1.3.1><DG1.3.1>R10.811</DG1.3.1><DG1.3.1>R10.811</ .~.~<DG1.3.1>R10.811</DG1.3.1><DG1.3.1>R10.811</DG1.3.1><DG1.3.1>R10.811</DG1.3. 1><D .~.~<DG1.3.1>R10.811</DG1.3.1><DG1.3.1> R10.811</DG1.3.1><DG1.3.1>R10.811</DG1.3.1><D .~.~<DG1.3.1>R10.811</DG1.3.1><DG1.3.1>R10.811</DG1.3.1><DG1.3.1>R10.811</DG1.3. 1><D .~.~<DG1.3.1>R10.811</DG1.3.1><DG1.3.1>R10.811</DG1.3.1><DG1.3.1> R10.811</DG1.3.1><D Hemoglobin 17.5 g/dL 14.0-16.0 Above high normal [facility] ([facility]) .~.~<DG1.3.1>R10.811</DG1.3.1><DG1.3.1>R10.811</DG1.3.1><DG1.3.1>R10.811</DG1.3. 1><D {SOURCE: R~.~.~<DG1.3.1>R10.811</DG1.3.1><DG1.3.1>R10.811</DG1.3.1><DG1.3.1>R10.811</DG1. 3.1><D .~.~<DG1.3.1> R10.811</DG1.3.1><DG1.3.1>R10.811</DG1.3.1><DG1.3.1>R10.811</DG1.3.1><D .~.~<DG1.3.1>R10.811</DG1.3.1><DG1.3.1>R10.811</DG1.3.1><DG1.3.1>R10.811</DG1.3. 1><D Is patient fasting? N~.~.~<DG1.3.1> R10.811</DG1.3.1><DG1.3.1>R10.811</DG1.3.1><DG1.3.1>R10.811</ .~.~<DG1.3.1>R10.811</DG1.3.1><DG1.3.1>R10.811</DG1.3.1><DG1.3.1>R10.811</DG1.3. 1><D .~.~<DG1.3.1>R10.811</DG1.3.1><DG1.3.1> R10.811</DG1.3.1><DG1.3.1>R10.811</DG1.3.1><D .~.~<DG1.3.1>R10.811</DG1.3.1><DG1.3.1>R10.811</DG1.3.1><DG1.3.1>R10.811</DG1.3. 1><D .~.~<DG1.3.1>R10.811</DG1.3.1><DG1.3.1>R10.811</DG1.3.1><DG1.3.1> R10.811</DG1.3.1><D MCV 80.9 fL 80.0-94.0 [facility]) .~.~<DG1.3.1>R10.811</DG1.3.1><DG1.3.1>R10.811</DG1.3.1><DG1.3.1>R10.811</DG1.3. 1><D {SOURCE: R~.~.~<DG1.3.1>R10.811</DG1.3.1><DG1.3.1>R10.811</DG1.3.1><DG1.3.1>R10.811</DG1. 3.1><D .~.~<DG1.3.1> R10.811</DG1.3.1><DG1.3.1>R10.811</DG1.3.1><DG1.3.1>R10.811</DG1.3.1><D .~.~<DG1.3.1>R10.811</DG1.3.1><DG1.3.1>R10.811</DG1.3.1><DG1.3.1>R10.811</DG1.3. 1><D Is patient fasting? N~.~.~<DG1.3.1> R10.811</DG1.3.1><DG1.3.1>R10.811</DG1.3.1><DG1.3.1>R10.811</ .~.~<DG1.3.1>R10.811</DG1.3.1><DG1.3.1>R10.811</DG1.3.1><DG1.3.1>R10.811</DG1.3. 1><D .~.~<DG1.3.1>R10.811</DG1.3.1><DG1.3.1> R10.811</DG1.3.1><DG1.3.1>R10.811</DG1.3.1><D .~.~<DG1.3.1>R10.811</DG1.3.1><DG1.3.1>R10.811</DG1.3.1><DG1.3.1>R10.811</DG1.3. 1><D .~.~<DG1.3.1>R10.811</DG1.3.1><DG1.3.1>R10.811</DG1.3.1><DG1.3.1> R10.811</DG1.3.1><D MCH 29.1 pg 27.0-34.0 [facility] ([facility]) .~.~<DG1.3.1>R10.811</DG1.3.1><DG1.3.1>R10.811</DG1.3.1><DG1.3.1>R10.811</DG1.3. 1><D {SOURCE: R~.~.~<DG1.3.1>R10.811</DG1.3.1><DG1.3.1>R10.811</DG1.3.1><DG1.3.1>R10.811</DG1. 3.1><D .~.~<DG1.3.1> R10.811</DG1.3.1><DG1.3.1>R10.811</DG1.3.1><DG1.3.1>R10.811</DG1.3.1><D .~.~<DG1.3.1>R10.811</DG1.3.1><DG1.3.1>R10.811</DG1.3.1><DG1.3.1>R10.811</DG1.3. 1><D Is patient fasting? N~.~.~<DG1.3.1> R10.811</DG1.3.1><DG1.3.1>R10.811</DG1.3.1><DG1.3.1>R10.811</ .~.~<DG1.3.1>R10.811</DG1.3.1><DG1.3.1>R10.811</DG1.3.1><DG1.3.1>R10.811</DG1.3. 1><D .~.~<DG1.3.1>R10.811</DG1.3.1><DG1.3.1> R10.811</DG1.3.1><DG1.3.1>R10.811</DG1.3.1><D .~.~<DG1.3.1>R10.811</DG1.3.1><DG1.3.1>R10.811</DG1.3.1><DG1.3.1>R10.811</DG1.3. 1><D .~.~<DG1.3.1>R10.811</DG1.3.1><DG1.3.1>R10.811</DG1.3.1><DG1.3.1> R10.811</DG1.3.1><D Hematocrit 48.7 % 41.0-51.0 [facility]) .~.~<DG1.3.1>R10.811</DG1.3.1><DG1.3.1>R10.811</DG1.3.1><DG1.3.1>R10.811</DG1.3. 1><D {SOURCE: R~.~.~<DG1.3.1>R10.811</DG1.3.1><DG1.3.1>R10.811</DG1.3.1><DG1.3.1>R10.811</DG1. 3.1><D .~.~<DG1.3.1> R10.811</DG1.3.1><DG1.3.1>R10.811</DG1.3.1><DG1.3.1>R10.811</DG1.3.1><D .~.~<DG1.3.1>R10.811</DG1.3.1><DG1.3.1>R10.811</DG1.3.1><DG1.3.1>R10.811</DG1.3. 1><D Is patient fasting? N~.~.~<DG1.3.1> R10.811</DG1.3.1><DG1.3.1>R10.811</DG1.3.1><DG1.3.1>R10.811</ .~.~<DG1.3.1>R10.811</DG1.3.1><DG1.3.1>R10.811</DG1.3.1><DG1.3.1>R10.811</DG1.3. 1><D .~.~<DG1.3.1>R10.811</DG1.3.1><DG1.3.1> R10.811</DG1.3.1><DG1.3.1>R10.811</DG1.3.1><D .~.~<DG1.3.1>R10.811</DG1.3.1><DG1.3.1>R10.811</DG1.3.1><DG1.3.1>R10.811</DG1.3. 1><D .~.~<DG1.3.1>R10.811</DG1.3.1><DG1.3.1>R10.811</DG1.3.1><DG1.3.1> R10.811</DG1.3.1><D MCHC 35.9 g/dL 31.0-36.0 [facility] ([facility]) .~.~<DG1.3.1>R10.811</DG1.3.1><DG1.3.1>R10.811</DG1.3.1><DG1.3.1>R10.811</DG1.3. 1><D {SOURCE: R~.~.~<DG1.3.1>R10.811</DG1.3.1><DG1.3.1>R10.811</DG1.3.1><DG1.3.1>R10.811</DG1. 3.1><D .~.~<DG1.3.1> R10.811</DG1.3.1><DG1.3.1>R10.811</DG1.3.1><DG1.3.1>R10.811</DG1.3.1><D .~.~<DG1.3.1>R10.811</DG1.3.1><DG1.3.1>R10.811</DG1.3.1><DG1.3.1>R10.811</DG1.3. 1><D Is patient fasting? N~.~.~<DG1.3.1> R10.811</DG1.3.1><DG1.3.1>R10.811</DG1.3.1><DG1.3.1>R10.811</ .~.~<DG1.3.1>R10.811</DG1.3.1><DG1.3.1>R10.811</DG1.3.1><DG1.3.1>R10.811</DG1.3. 1><D .~.~<DG1.3.1>R10.811</DG1.3.1><DG1.3.1> R10.811</DG1.3.1><DG1.3.1>R10.811</DG1.3.1><D .~.~<DG1.3.1>R10.811</DG1.3.1><DG1.3.1>R10.811</DG1.3.1><DG1.3.1>R10.811</DG1.3. 1><D .~.~<DG1.3.1>R10.811</DG1.3.1><DG1.3.1>R10.811</DG1.3.1><DG1.3.1> R10.811</DG1.3.1><D RDW 12.0 % 11.5-14.8 [facility] ([facility]) .~.~<DG1.3.1>R10.811</DG1.3.1><DG1.3.1>R10.811</DG1.3.1><DG1.3.1>R10.811</DG1.3. 1><D {SOURCE: R~.~.~<DG1.3.1>R10.811</DG1.3.1><DG1.3.1>R10.811</DG1.3.1><DG1.3.1>R10.811</DG1. 3.1><D .~.~<DG1.3.1> R10.811</DG1.3.1><DG1.3.1>R10.811</DG1.3.1><DG1.3.1>R10.811</DG1.3.1><D .~.~<DG1.3.1>R10.811</DG1.3.1><DG1.3.1>R10.811</DG1.3.1><DG1.3.1>R10.811</DG1.3. 1><D Is patient fasting? N~.~.~<DG1.3.1> R10.811</DG1.3.1><DG1.3.1>R10.811</DG1.3.1><DG1.3.1>R10.811</ .~.~<DG1.3.1>R10.811</DG1.3.1><DG1.3.1>R10.811</DG1.3.1><DG1.3.1>R10.811</DG1.3. 1><D .~.~<DG1.3.1>R10.811</DG1.3.1><DG1.3.1> R10.811</DG1.3.1><DG1.3.1>R10.811</DG1.3.1><D .~.~<DG1.3.1>R10.811</DG1.3.1><DG1.3.1>R10.811</DG1.3.1><DG1.3.1>R10.811</DG1.3. 1><D .~.~<DG1.3.1>R10.811</DG1.3.1><DG1.3.1>R10.811</DG1.3.1><DG1.3.1> R10.811</DG1.3.1><D Platelets 322 10^3/uL 150-450 [facility] ([facility]) .~.~<DG1.3.1>R10.811</DG1.3.1><DG1.3.1>R10.811</DG1.3.1><DG1.3.1>R10.811</DG1.3. 1><D {SOURCE: R~.~.~<DG1.3.1>R10.811</DG1.3.1><DG1.3.1>R10.811</DG1.3.1><DG1.3.1>R10.811</DG1. 3.1><D .~.~<DG1.3.1> R10.811</DG1.3.1><DG1.3.1>R10.811</DG1.3.1><DG1.3.1>R10.811</DG1.3.1><D .~.~<DG1.3.1>R10.811</DG1.3.1><DG1.3.1>R10.811</DG1.3.1><DG1.3.1>R10.811</DG1.3. 1><D Is patient fasting? N~.~.~<DG1.3.1> R10.811</DG1.3.1><DG1.3.1>R10.811</DG1.3.1><DG1.3.1>R10.811</ .~.~<DG1.3.1>R10.811</DG1.3.1><DG1.3.1>R10.811</DG1.3.1><DG1.3.1>R10.811</DG1.3. 1><D .~.~<DG1.3.1>R10.811</DG1.3.1><DG1.3.1> R10.811</DG1.3.1><DG1.3.1>R10.811</DG1.3.1><D .~.~<DG1.3.1>R10.811</DG1.3.1><DG1.3.1>R10.811</DG1.3.1><DG1.3.1>R10.811</DG1.3. 1><D .~.~<DG1.3.1>R10.811</DG1.3.1><DG1.3.1>R10.811</DG1.3.1><DG1.3.1> R10.811</DG1.3.1><D MPV 9.1 fL 7.4-10.4 [facility] ([facility]) .~.~<DG1.3.1>R10.811</DG1.3.1><DG1.3.1>R10.811</DG1.3.1><DG1.3.1>R10.811</DG1.3. 1><D {SOURCE: R~.~.~<DG1.3.1>R10.811</DG1.3.1><DG1.3.1>R10.811</DG1.3.1><DG1.3.1>R10.811</DG1. 3.1><D .~.~<DG1.3.1> R10.811</DG1.3.1><DG1.3.1>R10.811</DG1.3.1><DG1.3.1>R10.811</DG1.3.1><D .~.~<DG1.3.1>R10.811</DG1.3.1><DG1.3.1>R10.811</DG1.3.1><DG1.3.1>R10.811</DG1.3. 1><D Is patient fasting? N~.~.~<DG1.3.1> R10.811</DG1.3.1><DG1.3.1>R10.811</DG1.3.1><DG1.3.1>R10.811</ .~.~<DG1.3.1>R10.811</DG1.3.1><DG1.3.1>R10.811</DG1.3.1><DG1.3.1>R10.811</DG1.3. 1><D .~.~<DG1.3.1>R10.811</DG1.3.1><DG1.3.1> R10.811</DG1.3.1><DG1.3.1>R10.811</DG1.3.1><D .~.~<DG1.3.1>R10.811</DG1.3.1><DG1.3.1>R10.811</DG1.3.1><DG1.3.1>R10.811</DG1.3. 1><D .~.~<DG1.3.1>R10.811</DG1.3.1><DG1.3.1>R10.811</DG1.3.1><DG1.3.1> R10.811</DG1.3.1><D Neut 59.8 % 37.0-80.0 [facility] ([facility]) .~.~<DG1.3.1>R10.811</DG1.3.1><DG1.3.1>R10.811</DG1.3.1><DG1.3.1>R10.811</DG1.3. 1><D {SOURCE: R~.~.~<DG1.3.1>R10.811</DG1.3.1><DG1.3.1>R10.811</DG1.3.1><DG1.3.1>R10.811</DG1. 3.1><D .~.~<DG1.3.1> R10.811</DG1.3.1><DG1.3.1>R10.811</DG1.3.1><DG1.3.1>R10.811</DG1.3.1><D .~.~<DG1.3.1>R10.811</DG1.3.1><DG1.3.1>R10.811</DG1.3.1><DG1.3.1>R10.811</DG1.3. 1><D Is patient fasting? N~.~.~<DG1.3.1> R10.811</DG1.3.1><DG1.3.1>R10.811</DG1.3.1><DG1.3.1>R10.811</ .~.~<DG1.3.1>R10.811</DG1.3.1><DG1.3.1>R10.811</DG1.3.1><DG1.3.1>R10.811</DG1.3. 1><D .~.~<DG1.3.1>R10.811</DG1.3.1><DG1.3.1> R10.811</DG1.3.1><DG1.3.1>R10.811</DG1.3.1><D .~.~<DG1.3.1>R10.811</DG1.3.1><DG1.3.1>R10.811</DG1.3.1><DG1.3.1>R10.811</DG1.3. 1><D .~.~<DG1.3.1>R10.811</DG1.3.1><DG1.3.1>R10.811</DG1.3.1><DG1.3.1> R10.811</DG1.3.1><D Lymph 29.5 % 25.0-40.0 [facility]) .~.~<DG1.3.1>R10.811</DG1.3.1><DG1.3.1>R10.811</DG1.3.1><DG1.3.1>R10.811</DG1.3. 1><D {SOURCE: R~.~.~<DG1.3.1>R10.811</DG1.3.1><DG1.3.1>R10.811</DG1.3.1><DG1.3.1>R10.811</DG1. 3.1><D .~.~<DG1.3.1> R10.811</DG1.3.1><DG1.3.1>R10.811</DG1.3.1><DG1.3.1>R10.811</DG1.3.1><D .~.~<DG1.3.1>R10.811</DG1.3.1><DG1.3.1>R10.811</DG1.3.1><DG1.3.1>R10.811</DG1.3. 1><D Is patient fasting? N~.~.~<DG1.3.1> R10.811</DG1.3.1><DG1.3.1>R10.811</DG1.3.1><DG1.3.1>R10.811</ .~.~<DG1.3.1>R10.811</DG1.3.1><DG1.3.1>R10.811</DG1.3.1><DG1.3.1>R10.811</DG1.3. 1><D .~.~<DG1.3.1>R10.811</DG1.3.1><DG1.3.1> R10.811</DG1.3.1><DG1.3.1>R10.811</DG1.3.1><D .~.~<DG1.3.1>R10.811</DG1.3.1><DG1.3.1>R10.811</DG1.3.1><DG1.3.1>R10.811</DG1.3. 1><D .~.~<DG1.3.1>R10.811</DG1.3.1><DG1.3.1>R10.811</DG1.3.1><DG1.3.1> R10.811</DG1.3.1><D [place] 4.2 % 3.0-8.0 [facility] ([facility]) .~.~<DG1.3.1>R10.811</DG1.3.1><DG1.3.1>R10.811</DG1.3.1><DG1.3.1>R10.811</DG1.3. 1><D {SOURCE: R~.~.~<DG1.3.1>R10.811</DG1.3.1><DG1.3.1>R10.811</DG1.3.1><DG1.3.1>R10.811</DG1. 3.1><D .~.~<DG1.3.1> R10.811</DG1.3.1><DG1.3.1>R10.811</DG1.3.1><DG1.3.1>R10.811</DG1.3.1><D .~.~<DG1.3.1>R10.811</DG1.3.1><DG1.3.1>R10.811</DG1.3.1><DG1.3.1>R10.811</DG1.3. 1><D Is patient fasting? N~.~.~<DG1.3.1> R10.811</DG1.3.1><DG1.3.1>R10.811</DG1.3.1><DG1.3.1>R10.811</ .~.~<DG1.3.1>R10.811</DG1.3.1><DG1.3.1>R10.811</DG1.3.1><DG1.3.1>R10.811</DG1.3. 1><D .~.~<DG1.3.1>R10.811</DG1.3.1><DG1.3.1> R10.811</DG1.3.1><DG1.3.1>R10.811</DG1.3.1><D .~.~<DG1.3.1>R10.811</DG1.3.1><DG1.3.1>R10.811</DG1.3.1><DG1.3.1>R10.811</DG1.3. 1><D .~.~<DG1.3.1>R10.811</DG1.3.1><DG1.3.1>R10.811</DG1.3.1><DG1.3.1> R10.811</DG1.3.1><D Eos 5.3 % 0.0-7.0 [facility] ([facility]) .~.~<DG1.3.1>R10.811</DG1.3.1><DG1.3.1>R10.811</DG1.3.1><DG1.3.1>R10.811</DG1.3. 1><D {SOURCE: R~.~.~<DG1.3.1>R10.811</DG1.3.1><DG1.3.1>R10.811</DG1.3.1><DG1.3.1>R10.811</DG1. 3.1><D .~.~<DG1.3.1> R10.811</DG1.3.1><DG1.3.1>R10.811</DG1.3.1><DG1.3.1>R10.811</DG1.3.1><D .~.~<DG1.3.1>R10.811</DG1.3.1><DG1.3.1>R10.811</DG1.3.1><DG1.3.1>R10.811</DG1.3. 1><D Is patient fasting? N~.~.~<DG1.3.1> R10.811</DG1.3.1><DG1.3.1>R10.811</DG1.3.1><DG1.3.1>R10.811</ .~.~<DG1.3.1>R10.811</DG1.3.1><DG1.3.1>R10.811</DG1.3.1><DG1.3.1>R10.811</DG1.3. 1><D .~.~<DG1.3.1>R10.811</DG1.3.1><DG1.3.1> R10.811</DG1.3.1><DG1.3.1>R10.811</DG1.3.1><D .~.~<DG1.3.1>R10.811</DG1.3.1><DG1.3.1>R10.811</DG1.3.1><DG1.3.1>R10.811</DG1.3. 1><D .~.~<DG1.3.1>R10.811</DG1.3.1><DG1.3.1>R10.811</DG1.3.1><DG1.3.1> R10.811</DG1.3.1><D Baso 0.9 % 0.0-2.0 [facility] ([facility]) .~.~<DG1.3.1>R10.811</DG1.3.1><DG1.3.1>R10.811</DG1.3.1><DG1.3.1>R10.811</DG1.3. 1><D {SOURCE: R~.~.~<DG1.3.1>R10.811</DG1.3.1><DG1.3.1>R10.811</DG1.3.1><DG1.3.1>R10.811</DG1. 3.1><D .~.~<DG1.3.1> R10.811</DG1.3.1><DG1.3.1>R10.811</DG1.3.1><DG1.3.1>R10.811</DG1.3.1><D .~.~<DG1.3.1>R10.811</DG1.3.1><DG1.3.1>R10.811</DG1.3.1><DG1.3.1>R10.811</DG1.3. 1><D Is patient fasting? N~.~.~<DG1.3.1> R10.811</DG1.3.1><DG1.3.1>R10.811</DG1.3.1><DG1.3.1>R10.811</ .~.~<DG1.3.1>R10.811</DG1.3.1><DG1.3.1>R10.811</DG1.3.1><DG1.3.1>R10.811</DG1.3. 1><D .~.~<DG1.3.1>R10.811</DG1.3.1><DG1.3.1> R10.811</DG1.3.1><DG1.3.1>R10.811</DG1.3.1><D .~.~<DG1.3.1>R10.811</DG1.3.1><DG1.3.1>R10.811</DG1.3.1><DG1.3.1>R10.811</DG1.3. 1><D .~.~<DG1.3.1>R10.811</DG1.3.1><DG1.3.1>R10.811</DG1.3.1><DG1.3.1> R10.811</DG1.3.1><D %NRBC 0.0 % 0.0-0.0 [facility] ([facility]) .~.~<DG1.3.1>R10.811</DG1.3.1><DG1.3.1>R10.811</DG1.3.1><DG1.3.1>R10.811</DG1.3. 1><D {SOURCE: R~.~.~<DG1.3.1>R10.811</DG1.3.1><DG1.3.1>R10.811</DG1.3.1><DG1.3.1>R10.811</DG1. 3.1><D .~.~<DG1.3.1> R10.811</DG1.3.1><DG1.3.1>R10.811</DG1.3.1><DG1.3.1>R10.811</DG1.3.1><D .~.~<DG1.3.1>R10.811</DG1.3.1><DG1.3.1>R10.811</DG1.3.1><DG1.3.1>R10.811</DG1.3. 1><D Is patient fasting? N~.~.~<DG1.3.1> R10.811</DG1.3.1><DG1.3.1>R10.811</DG1.3.1><DG1.3.1>R10.811</ .~.~<DG1.3.1>R10.811</DG1.3.1><DG1.3.1>R10.811</DG1.3.1><DG1.3.1>R10.811</DG1.3. 1><D .~.~<DG1.3.1>R10.811</DG1.3.1><DG1.3.1> R10.811</DG1.3.1><DG1.3.1>R10.811</DG1.3.1><D .~.~<DG1.3.1>R10.811</DG1.3.1><DG1.3.1>R10.811</DG1.3.1><DG1.3.1>R10.811</DG1.3. 1><D .~.~<DG1.3.1>R10.811</DG1.3.1><DG1.3.1>R10.811</DG1.3.1><DG1.3.1> R10.811</DG1.3.1><D %Ig 0.3 % 0.0-0.0 Above high normal [facility] ([facility]) .~.~<DG1.3.1>R10.811</DG1.3.1><DG1.3.1>R10.811</DG1.3.1><DG1.3.1>R10.811</DG1.3. 1><D {SOURCE: R~.~.~<DG1.3.1>R10.811</DG1.3.1><DG1.3.1>R10.811</DG1.3.1><DG1.3.1>R10.811</DG1. 3.1><D .~.~<DG1.3.1> R10.811</DG1.3.1><DG1.3.1>R10.811</DG1.3.1><DG1.3.1>R10.811</DG1.3.1><D .~.~<DG1.3.1>R10.811</DG1.3.1><DG1.3.1>R10.811</DG1.3.1><DG1.3.1>R10.811</DG1.3. 1><D Is patient fasting? N~.~.~<DG1.3.1> R10.811</DG1.3.1><DG1.3.1>R10.811</DG1.3.1><DG1.3.1>R10.811</ .~.~<DG1.3.1>R10.811</DG1.3.1><DG1.3.1>R10.811</DG1.3.1><DG1.3.1>R10.811</DG1.3. 1><D .~.~<DG1.3.1>R10.811</DG1.3.1><DG1.3.1> R10.811</DG1.3.1><DG1.3.1>R10.811</DG1.3.1><D .~.~<DG1.3.1>R10.811</DG1.3.1><DG1.3.1>R10.811</DG1.3.1><DG1.3.1>R10.811</DG1.3. 1><D .~.~<DG1.3.1>R10.811</DG1.3.1><DG1.3.1>R10.811</DG1.3.1><DG1.3.1> R10.811</DG1.3.1><D #Neut 4.09 10^3/uL 2.00-6.90 [facility]) .~.~<DG1.3.1>R10.811</DG1.3.1><DG1.3.1>R10.811</DG1.3.1><DG1.3.1>R10.811</DG1.3. 1><D {SOURCE: R~.~.~<DG1.3.1>R10.811</DG1.3.1><DG1.3.1>R10.811</DG1.3.1><DG1.3.1>R10.811</DG1. 3.1><D .~.~<DG1.3.1> R10.811</DG1.3.1><DG1.3.1>R10.811</DG1.3.1><DG1.3.1>R10.811</DG1.3.1><D .~.~<DG1.3.1>R10.811</DG1.3.1><DG1.3.1>R10.811</DG1.3.1><DG1.3.1>R10.811</DG1.3. 1><D Is patient fasting? N~.~.~<DG1.3.1> R10.811</DG1.3.1><DG1.3.1>R10.811</DG1.3.1><DG1.3.1>R10.811</ .~.~<DG1.3.1>R10.811</DG1.3.1><DG1.3.1>R10.811</DG1.3.1><DG1.3.1>R10.811</DG1.3. 1><D .~.~<DG1.3.1>R10.811</DG1.3.1><DG1.3.1> R10.811</DG1.3.1><DG1.3.1>R10.811</DG1.3.1><D .~.~<DG1.3.1>R10.811</DG1.3.1><DG1.3.1>R10.811</DG1.3.1><DG1.3.1>R10.811</DG1.3. 1><D .~.~<DG1.3.1>R10.811</DG1.3.1><DG1.3.1>R10.811</DG1.3.1><DG1.3.1> R10.811</DG1.3.1><D #Lymph 2.02 10^3/uL 0.60-3.40 [facility]) .~.~<DG1.3.1>R10.811</DG1.3.1><DG1.3.1>R10.811</DG1.3.1><DG1.3.1>R10.811</DG1.3. 1><D {SOURCE: R~.~.~<DG1.3.1>R10.811</DG1.3.1><DG1.3.1>R10.811</DG1.3.1><DG1.3.1>R10.811</DG1. 3.1><D .~.~<DG1.3.1> R10.811</DG1.3.1><DG1.3.1>R10.811</DG1.3.1><DG1.3.1>R10.811</DG1.3.1><D .~.~<DG1.3.1>R10.811</DG1.3.1><DG1.3.1>R10.811</DG1.3.1><DG1.3.1>R10.811</DG1.3. 1><D Is patient fasting? N~.~.~<DG1.3.1> R10.811</DG1.3.1><DG1.3.1>R10.811</DG1.3.1><DG1.3.1>R10.811</ .~.~<DG1.3.1>R10.811</DG1.3.1><DG1.3.1>R10.811</DG1.3.1><DG1.3.1>R10.811</DG1.3. 1><D .~.~<DG1.3.1>R10.811</DG1.3.1><DG1.3.1> R10.811</DG1.3.1><DG1.3.1>R10.811</DG1.3.1><D .~.~<DG1.3.1>R10.811</DG1.3.1><DG1.3.1>R10.811</DG1.3.1><DG1.3.1>R10.811</DG1.3. 1><D .~.~<DG1.3.1>R10.811</DG1.3.1><DG1.3.1>R10.811</DG1.3.1><DG1.3.1> R10.811</DG1.3.1><D #[place] 0.29 10^3/uL 0.00-0.90 SHAYLA ([facility]) .~.~<DG1.3.1>R10.811</DG1.3.1><DG1.3.1>R10.811</DG1.3.1><DG1.3.1>R10.811</DG1.3. 1><D {SOURCE: R~.~.~<DG1.3.1>R10.811</DG1.3.1><DG1.3.1>R10.811</DG1.3.1><DG1.3.1>R10.811</DG1. 3.1><D .~.~<DG1.3.1> R10.811</DG1.3.1><DG1.3.1>R10.811</DG1.3.1><DG1.3.1>R10.811</DG1.3.1><D .~.~<DG1.3.1>R10.811</DG1.3.1><DG1.3.1>R10.811</DG1.3.1><DG1.3.1>R10.811</DG1.3. 1><D Is patient fasting? N~.~.~<DG1.3.1> R10.811</DG1.3.1><DG1.3.1>R10.811</DG1.3.1><DG1.3.1>R10.811</ .~.~<DG1.3.1>R10.811</DG1.3.1><DG1.3.1>R10.811</DG1.3.1><DG1.3.1>R10.811</DG1.3. 1><D .~.~<DG1.3.1>R10.811</DG1.3.1><DG1.3.1> R10.811</DG1.3.1><DG1.3.1>R10.811</DG1.3.1><D .~.~<DG1.3.1>R10.811</DG1.3.1><DG1.3.1>R10.811</DG1.3.1><DG1.3.1>R10.811</DG1.3. 1><D .~.~<DG1.3.1>R10.811</DG1.3.1><DG1.3.1>R10.811</DG1.3.1><DG1.3.1> R10.811</DG1.3.1><D #[place] 0.36 10^3/uL 0.00-0.70 [facility]) .~.~<DG1.3.1>R10.811</DG1.3.1><DG1.3.1>R10.811</DG1.3.1><DG1.3.1>R10.811</DG1.3. 1><D {SOURCE: R~.~.~<DG1.3.1>R10.811</DG1.3.1><DG1.3.1>R10.811</DG1.3.1><DG1.3.1>R10.811</DG1. 3.1><D .~.~<DG1.3.1> R10.811</DG1.3.1><DG1.3.1>R10.811</DG1.3.1><DG1.3.1>R10.811</DG1.3.1><D .~.~<DG1.3.1>R10.811</DG1.3.1><DG1.3.1>R10.811</DG1.3.1><DG1.3.1>R10.811</DG1.3. 1><D Is patient fasting? N~.~.~<DG1.3.1> R10.811</DG1.3.1><DG1.3.1>R10.811</DG1.3.1><DG1.3.1>R10.811</ .~.~<DG1.3.1>R10.811</DG1.3.1><DG1.3.1>R10.811</DG1.3.1><DG1.3.1>R10.811</DG1.3. 1><D .~.~<DG1.3.1>R10.811</DG1.3.1><DG1.3.1> R10.811</DG1.3.1><DG1.3.1>R10.811</DG1.3.1><D .~.~<DG1.3.1>R10.811</DG1.3.1><DG1.3.1>R10.811</DG1.3.1><DG1.3.1>R10.811</DG1.3. 1><D .~.~<DG1.3.1>R10.811</DG1.3.1><DG1.3.1>R10.811</DG1.3.1><DG1.3.1> R10.811</DG1.3.1><D #Ig 0.02 10^3/uL 0.00-0.10 SHAYLA ([facility]) .~.~<DG1.3.1>R10.811</DG1.3.1><DG1.3.1>R10.811</DG1.3.1><DG1.3.1>R10.811</DG1.3. 1><D {SOURCE: R~.~.~<DG1.3.1>R10.811</DG1.3.1><DG1.3.1>R10.811</DG1.3.1><DG1.3.1>R10.811</DG1. 3.1><D .~.~<DG1.3.1> R10.811</DG1.3.1><DG1.3.1>R10.811</DG1.3.1><DG1.3.1>R10.811</DG1.3.1><D .~.~<DG1.3.1>R10.811</DG1.3.1><DG1.3.1>R10.811</DG1.3.1><DG1.3.1>R10.811</DG1.3. 1><D Is patient fasting? N~.~.~<DG1.3.1> R10.811</DG1.3.1><DG1.3.1>R10.811</DG1.3.1><DG1.3.1>R10.811</ .~.~<DG1.3.1>R10.811</DG1.3.1><DG1.3.1>R10.811</DG1.3.1><DG1.3.1>R10.811</DG1.3. 1><D .~.~<DG1.3.1>R10.811</DG1.3.1><DG1.3.1> R10.811</DG1.3.1><DG1.3.1>R10.811</DG1.3.1><D .~.~<DG1.3.1>R10.811</DG1.3.1><DG1.3.1>R10.811</DG1.3.1><DG1.3.1>R10.811</DG1.3. 1><D .~.~<DG1.3.1>R10.811</DG1.3.1><DG1.3.1>R10.811</DG1.3.1><DG1.3.1> R10.811</DG1.3.1><D #[place] 0.06 10^3/uL 0.00-0.20 SHAYLA ([facility]) .~.~<DG1.3.1>R10.811</DG1.3.1><DG1.3.1>R10.811</DG1.3.1><DG1.3.1>R10.811</DG1.3. 1><D {SOURCE: R~.~.~<DG1.3.1>R10.811</DG1.3.1><DG1.3.1>R10.811</DG1.3.1><DG1.3.1>R10.811</DG1. 3.1><D .~.~<DG1.3.1> R10.811</DG1.3.1><DG1.3.1>R10.811</DG1.3.1><DG1.3.1>R10.811</DG1.3.1><D .~.~<DG1.3.1>R10.811</DG1.3.1><DG1.3.1>R10.811</DG1.3.1><DG1.3.1>R10.811</DG1.3. 1><D Is patient fasting? N~.~.~<DG1.3.1> R10.811</DG1.3.1><DG1.3.1>R10.811</DG1.3.1><DG1.3.1>R10.811</ .~.~<DG1.3.1>R10.811</DG1.3.1><DG1.3.1>R10.811</DG1.3.1><DG1.3.1>R10.811</DG1.3. 1><D .~.~<DG1.3.1>R10.811</DG1.3.1><DG1.3.1> R10.811</DG1.3.1><DG1.3.1>R10.811</DG1.3.1><D .~.~<DG1.3.1>R10.811</DG1.3.1><DG1.3.1>R10.811</DG1.3.1><DG1.3.1>R10.811</DG1.3. 1><D .~.~<DG1.3.1>R10.811</DG1.3.1><DG1.3.1>R10.811</DG1.3.1><DG1.3.1> R10.811</DG1.3.1><D #NRBC 0.00 10^3/uL 0.00-0.00 [facility]) .~.~<DG1.3.1>R10.811</DG1.3.1><DG1.3.1>R10.811</DG1.3.1><DG1.3.1>R10.811</DG1.3. 1><D {SOURCE: R~.~.~<DG1.3.1>R10.811</DG1.3.1><DG1.3.1>R10.811</DG1.3.1><DG1.3.1>R10.811</DG1. 3.1><D .~.~<DG1.3.1> R10.811</DG1.3.1><DG1.3.1>R10.811</DG1.3.1><DG1.3.1>R10.811</DG1.3.1><D .~.~<DG1.3.1>R10.811</DG1.3.1><DG1.3.1>R10.811</DG1.3.1><DG1.3.1>R10.811</DG1.3. 1><D Is patient fasting? N~.~.~<DG1.3.1> R10.811</DG1.3.1><DG1.3.1>R10.811</DG1.3.1><DG1.3.1>R10.811</ .~.~<DG1.3.1>R10.811</DG1.3.1><DG1.3.1>R10.811</DG1.3.1><DG1.3.1>R10.811</DG1.3. 1><D .~.~<DG1.3.1>R10.811</DG1.3.1><DG1.3.1> R10.811</DG1.3.1><DG1.3.1>R10.811</DG1.3.1><D .~.~<DG1.3.1>R10.811</DG1.3.1><DG1.3.1>R10.811</DG1.3.1><DG1.3.1>R10.811</DG1.3. 1><D .~.~<DG1.3.1>R10.811</DG1.3.1><DG1.3.1>R10.811</DG1.3.1><DG1.3.1> R10.811</DG1.3.1><D Manual Diff Laboratory test result Sneha KEENAN ([facility]) .~.~<DG1.3.1>R10.811</DG1.3.1><DG1.3.1>R10.811</DG1.3.1><DG1.3.1>R10.811</DG1.3. 1><D {SOURCE: R~.~.~<DG1.3.1>R10.811</DG1.3.1><DG1.3.1>R10.811</DG1.3.1><DG1.3.1>R10.811</DG1. 3.1><D .~.~<DG1.3.1> R10.811</DG1.3.1><DG1.3.1>R10.811</DG1.3.1><DG1.3.1>R10.811</DG1.3.1><D .~.~<DG1.3.1>R10.811</DG1.3.1><DG1.3.1>R10.811</DG1.3.1><DG1.3.1>R10.811</DG1.3. 1><D Is patient fasting? N~.~.~<DG1.3.1> R10.811</DG1.3.1><DG1.3.1>R10.811</DG1.3.1><DG1.3.1>R10.811</ .~.~<DG1.3.1>R10.811</DG1.3.1><DG1.3.1>R10.811</DG1.3.1><DG1.3.1>R10.811</DG1.3. 1><D .~.~<DG1.3.1>R10.811</DG1.3.1><DG1.3.1> R10.811</DG1.3.1><DG1.3.1>R10.811</DG1.3.1><D .~.~<DG1.3.1>R10.811</DG1.3.1><DG1.3.1>R10.811</DG1.3.1><DG1.3.1>R10.811</DG1.3. 1><D .~.~<DG1.3.1>R10.811</DG1.3.1><DG1.3.1>R10.811</DG1.3.1><DG1.3.1> R10.811</DG1.3.1><D RBC Morph Laboratory test result [facility] ([facility]) .~.~<DG1.3.1>R10.811</DG1.3.1><DG1.3.1>R10.811</DG1.3.1><DG1.3.1>R10.811</DG1.3. 1><D {SOURCE: R~.~.~<DG1.3.1>R10.811</DG1.3.1><DG1.3.1>R10.811</DG1.3.1><DG1.3.1>R10.811</DG1. 3.1><D .~.~<DG1.3.1> R10.811</DG1.3.1><DG1.3.1>R10.811</DG1.3.1><DG1.3.1>R10.811</DG1.3.1><D .~.~<DG1.3.1>R10.811</DG1.3.1><DG1.3.1>R10.811</DG1.3.1><DG1.3.1>R10.811</DG1.3. 1><D Is patient fasting? N~.~.~<DG1.3.1> R10.811</DG1.3.1><DG1.3.1>R10.811</DG1.3.1><DG1.3.1>R10.811</ .~.~<DG1.3.1>R10.811</DG1.3.1><DG1.3.1>R10.811</DG1.3.1><DG1.3.1>R10.811</DG1.3. 1><D .~.~<DG1.3.1>R10.811</DG1.3.1><DG1.3.1> R10.811</DG1.3.1><DG1.3.1>R10.811</DG1.3.1><D .~.~<DG1.3.1>R10.811</DG1.3.1><DG1.3.1>R10.811</DG1.3.1><DG1.3.1>R10.811</DG1.3. 1><D .~.~<DG1.3.1>R10.811</DG1.3.1><DG1.3.1>R10.811</DG1.3.1><DG1.3.1> R10.811</DG1.3.1><D ID Date Data Source [id number] 12/25/2020 07:51:00 AM EST [facility] ([facility]) Name Value Range Interpretation Code Description Data Shona rce(s) Supporting Document(s) Comprehensive [employer] Laboratory test result [facility] ([facility]) .~.~<DG1.3.1>R10.811</DG1.3.1><DG1.3.1>R10.811</DG1.3.1><DG1.3.1>R10.811</DG1.3. 1><D {SOURCE: R~.~.~<DG1.3.1>R10.811</DG1.3.1><DG1.3.1>R10.811</DG1.3.1><DG1.3.1>R10.811</DG1. 3.1><D .~.~<DG1.3.1> R10.811</DG1.3.1><DG1.3.1>R10.811</DG1.3.1><DG1.3.1>R10.811</DG1.3.1><D .~.~<DG1.3.1>R10.811</DG1.3.1><DG1.3.1>R10.811</DG1.3.1><DG1.3.1>R10.811</DG1.3. 1><D Is patient fasting? N~.~.~<DG1.3.1> R10.811</DG1.3.1><DG1.3.1>R10.811</DG1.3.1><DG1.3.1>R10.811</ .~.~<DG1.3.1>R10.811</DG1.3.1><DG1.3.1>R10.811</DG1.3.1><DG1.3.1>R10.811</DG1.3. 1><D .~.~<DG1.3.1>R10.811</DG1.3.1><DG1.3.1> R10.811</DG1.3.1><DG1.3.1>R10.811</DG1.3.1><D .~.~<DG1.3.1>R10.811</DG1.3.1><DG1.3.1>R10.811</DG1.3.1><DG1.3.1>R10.811</DG1.3. 1><D .~.~<DG1.3.1>R10.811</DG1.3.1><DG1.3.1>R10.811</DG1.3.1><DG1.3.1> R10.811</DG1.3.1><D Sodium 136 meq/L 134-153 [facility] ([facility]) .~.~<DG1.3.1>R10.811</DG1.3.1><DG1.3.1>R10.811</DG1.3.1><DG1.3.1>R10.811</DG1.3. 1><D {SOURCE: R~.~.~<DG1.3.1>R10.811</DG1.3.1><DG1.3.1>R10.811</DG1.3.1><DG1.3.1>R10.811</DG1. 3.1><D .~.~<DG1.3.1> R10.811</DG1.3.1><DG1.3.1>R10.811</DG1.3.1><DG1.3.1>R10.811</DG1.3.1><D .~.~<DG1.3.1>R10.811</DG1.3.1><DG1.3.1>R10.811</DG1.3.1><DG1.3.1>R10.811</DG1.3. 1><D Is patient fasting? N~.~.~<DG1.3.1> R10.811</DG1.3.1><DG1.3.1>R10.811</DG1.3.1><DG1.3.1>R10.811</ .~.~<DG1.3.1>R10.811</DG1.3.1><DG1.3.1>R10.811</DG1.3.1><DG1.3.1>R10.811</DG1.3. 1><D .~.~<DG1.3.1>R10.811</DG1.3.1><DG1.3.1> R10.811</DG1.3.1><DG1.3.1>R10.811</DG1.3.1><D .~.~<DG1.3.1>R10.811</DG1.3.1><DG1.3.1>R10.811</DG1.3.1><DG1.3.1>R10.811</DG1.3. 1><D .~.~<DG1.3.1>R10.811</DG1.3.1><DG1.3.1>R10.811</DG1.3.1><DG1.3.1> R10.811</DG1.3.1><D Potassium 4.1 meq/L 3.6-5.0 [facility] ([facility]) .~.~<DG1.3.1>R10.811</DG1.3.1><DG1.3.1>R10.811</DG1.3.1><DG1.3.1>R10.811</DG1.3. 1><D {SOURCE: R~.~.~<DG1.3.1>R10.811</DG1.3.1><DG1.3.1>R10.811</DG1.3.1><DG1.3.1>R10.811</DG1. 3.1><D .~.~<DG1.3.1> R10.811</DG1.3.1><DG1.3.1>R10.811</DG1.3.1><DG1.3.1>R10.811</DG1.3.1><D .~.~<DG1.3.1>R10.811</DG1.3.1><DG1.3.1>R10.811</DG1.3.1><DG1.3.1>R10.811</DG1.3. 1><D Is patient fasting? N~.~.~<DG1.3.1> R10.811</DG1.3.1><DG1.3.1>R10.811</DG1.3.1><DG1.3.1>R10.811</ .~.~<DG1.3.1>R10.811</DG1.3.1><DG1.3.1>R10.811</DG1.3.1><DG1.3.1>R10.811</DG1.3. 1><D .~.~<DG1.3.1>R10.811</DG1.3.1><DG1.3.1> R10.811</DG1.3.1><DG1.3.1>R10.811</DG1.3.1><D .~.~<DG1.3.1>R10.811</DG1.3.1><DG1.3.1>R10.811</DG1.3.1><DG1.3.1>R10.811</DG1.3. 1><D .~.~<DG1.3.1>R10.811</DG1.3.1><DG1.3.1>R10.811</DG1.3.1><DG1.3.1> R10.811</DG1.3.1><D Chloride 100 meq/L 98-107 [facility] ([facility]) .~.~<DG1.3.1>R10.811</DG1.3.1><DG1.3.1>R10.811</DG1.3.1><DG1.3.1>R10.811</DG1.3. 1><D {SOURCE: R~.~.~<DG1.3.1>R10.811</DG1.3.1><DG1.3.1>R10.811</DG1.3.1><DG1.3.1>R10.811</DG1. 3.1><D .~.~<DG1.3.1> R10.811</DG1.3.1><DG1.3.1>R10.811</DG1.3.1><DG1.3.1>R10.811</DG1.3.1><D .~.~<DG1.3.1>R10.811</DG1.3.1><DG1.3.1>R10.811</DG1.3.1><DG1.3.1>R10.811</DG1.3. 1><D Is patient fasting? N~.~.~<DG1.3.1> R10.811</DG1.3.1><DG1.3.1>R10.811</DG1.3.1><DG1.3.1>R10.811</ .~.~<DG1.3.1>R10.811</DG1.3.1><DG1.3.1>R10.811</DG1.3.1><DG1.3.1>R10.811</DG1.3. 1><D .~.~<DG1.3.1>R10.811</DG1.3.1><DG1.3.1> R10.811</DG1.3.1><DG1.3.1>R10.811</DG1.3.1><D .~.~<DG1.3.1>R10.811</DG1.3.1><DG1.3.1>R10.811</DG1.3.1><DG1.3.1>R10.811</DG1.3. 1><D .~.~<DG1.3.1>R10.811</DG1.3.1><DG1.3.1>R10.811</DG1.3.1><DG1.3.1> R10.811</DG1.3.1><D Glucose 98 mg/dL 70-99 [facility] ([facility]) .~.~<DG1.3.1>R10.811</DG1.3.1><DG1.3.1>R10.811</DG1.3.1><DG1.3.1>R10.811</DG1.3. 1><D {SOURCE: R~.~.~<DG1.3.1>R10.811</DG1.3.1><DG1.3.1>R10.811</DG1.3.1><DG1.3.1>R10.811</DG1. 3.1><D .~.~<DG1.3.1> R10.811</DG1.3.1><DG1.3.1>R10.811</DG1.3.1><DG1.3.1>R10.811</DG1.3.1><D .~.~<DG1.3.1>R10.811</DG1.3.1><DG1.3.1>R10.811</DG1.3.1><DG1.3.1>R10.811</DG1.3. 1><D Is patient fasting? N~.~.~<DG1.3.1> R10.811</DG1.3.1><DG1.3.1>R10.811</DG1.3.1><DG1.3.1>R10.811</ .~.~<DG1.3.1>R10.811</DG1.3.1><DG1.3.1>R10.811</DG1.3.1><DG1.3.1>R10.811</DG1.3. 1><D .~.~<DG1.3.1>R10.811</DG1.3.1><DG1.3.1> R10.811</DG1.3.1><DG1.3.1>R10.811</DG1.3.1><D .~.~<DG1.3.1>R10.811</DG1.3.1><DG1.3.1>R10.811</DG1.3.1><DG1.3.1>R10.811</DG1.3. 1><D .~.~<DG1.3.1>R10.811</DG1.3.1><DG1.3.1>R10.811</DG1.3.1><DG1.3.1> R10.811</DG1.3.1><D Co2 28 meq/L 22-30 [facility] ([facility]) .~.~<DG1.3.1>R10.811</DG1.3.1><DG1.3.1>R10.811</DG1.3.1><DG1.3.1>R10.811</DG1.3. 1><D {SOURCE: R~.~.~<DG1.3.1>R10.811</DG1.3.1><DG1.3.1>R10.811</DG1.3.1><DG1.3.1>R10.811</DG1. 3.1><D .~.~<DG1.3.1> R10.811</DG1.3.1><DG1.3.1>R10.811</DG1.3.1><DG1.3.1>R10.811</DG1.3.1><D .~.~<DG1.3.1>R10.811</DG1.3.1><DG1.3.1>R10.811</DG1.3.1><DG1.3.1>R10.811</DG1.3. 1><D Is patient fasting? N~.~.~<DG1.3.1> R10.811</DG1.3.1><DG1.3.1>R10.811</DG1.3.1><DG1.3.1>R10.811</ .~.~<DG1.3.1>R10.811</DG1.3.1><DG1.3.1>R10.811</DG1.3.1><DG1.3.1>R10.811</DG1.3. 1><D .~.~<DG1.3.1>R10.811</DG1.3.1><DG1.3.1> R10.811</DG1.3.1><DG1.3.1>R10.811</DG1.3.1><D .~.~<DG1.3.1>R10.811</DG1.3.1><DG1.3.1>R10.811</DG1.3.1><DG1.3.1>R10.811</DG1.3. 1><D .~.~<DG1.3.1>R10.811</DG1.3.1><DG1.3.1>R10.811</DG1.3.1><DG1.3.1> R10.811</DG1.3.1><D BUN 17 mg/dL 7-21 [facility] ([facility] .~.~<DG1.3.1>R10.811</DG1.3.1><DG1.3.1>R10.811</DG1.3.1><DG1.3.1>R10.811</DG1.3. 1><D {SOURCE: R~.~.~<DG1.3.1>R10.811</DG1.3.1><DG1.3.1>R10.811</DG1.3.1><DG1.3.1>R10.811</DG1. 3.1><D .~.~<DG1.3.1> R10.811</DG1.3.1><DG1.3.1>R10.811</DG1.3.1><DG1.3.1>R10.811</DG1.3.1><D .~.~<DG1.3.1>R10.811</DG1.3.1><DG1.3.1>R10.811</DG1.3.1><DG1.3.1>R10.811</DG1.3. 1><D Is patient fasting? N~.~.~<DG1.3.1> R10.811</DG1.3.1><DG1.3.1>R10.811</DG1.3.1><DG1.3.1>R10.811</ .~.~<DG1.3.1>R10.811</DG1.3.1><DG1.3.1>R10.811</DG1.3.1><DG1.3.1>R10.811</DG1.3. 1><D .~.~<DG1.3.1>R10.811</DG1.3.1><DG1.3.1> R10.811</DG1.3.1><DG1.3.1>R10.811</DG1.3.1><D .~.~<DG1.3.1>R10.811</DG1.3.1><DG1.3.1>R10.811</DG1.3.1><DG1.3.1>R10.811</DG1.3. 1><D .~.~<DG1.3.1>R10.811</DG1.3.1><DG1.3.1>R10.811</DG1.3.1><DG1.3.1> R10.811</DG1.3.1><D Creatinine 0.9 mg/dL 0.7-1.5 [facility]) .~.~<DG1.3.1>R10.811</DG1.3.1><DG1.3.1>R10.811</DG1.3.1><DG1.3.1>R10.811</DG1.3. 1><D {SOURCE: R~.~.~<DG1.3.1>R10.811</DG1.3.1><DG1.3.1>R10.811</DG1.3.1><DG1.3.1>R10.811</DG1. 3.1><D .~.~<DG1.3.1> R10.811</DG1.3.1><DG1.3.1>R10.811</DG1.3.1><DG1.3.1>R10.811</DG1.3.1><D .~.~<DG1.3.1>R10.811</DG1.3.1><DG1.3.1>R10.811</DG1.3.1><DG1.3.1>R10.811</DG1.3. 1><D Is patient fasting? N~.~.~<DG1.3.1> R10.811</DG1.3.1><DG1.3.1>R10.811</DG1.3.1><DG1.3.1>R10.811</ .~.~<DG1.3.1>R10.811</DG1.3.1><DG1.3.1>R10.811</DG1.3.1><DG1.3.1>R10.811</DG1.3. 1><D .~.~<DG1.3.1>R10.811</DG1.3.1><DG1.3.1> R10.811</DG1.3.1><DG1.3.1>R10.811</DG1.3.1><D .~.~<DG1.3.1>R10.811</DG1.3.1><DG1.3.1>R10.811</DG1.3.1><DG1.3.1>R10.811</DG1.3. 1><D .~.~<DG1.3.1>R10.811</DG1.3.1><DG1.3.1>R10.811</DG1.3.1><DG1.3.1> R10.811</DG1.3.1><D BUN/Creat 06-28 [facility] ([facility]) .~.~<DG1.3.1>R10.811</DG1.3.1><DG1.3.1>R10.811</DG1.3.1><DG1.3.1>R10.811</DG1.3. 1><D {SOURCE: R~.~.~<DG1.3.1>R10.811</DG1.3.1><DG1.3.1>R10.811</DG1.3.1><DG1.3.1>R10.811</DG1. 3.1><D .~.~<DG1.3.1> R10.811</DG1.3.1><DG1.3.1>R10.811</DG1.3.1><DG1.3.1>R10.811</DG1.3.1><D .~.~<DG1.3.1>R10.811</DG1.3.1><DG1.3.1>R10.811</DG1.3.1><DG1.3.1>R10.811</DG1.3. 1><D Is patient fasting? N~.~.~<DG1.3.1> R10.811</DG1.3.1><DG1.3.1>R10.811</DG1.3.1><DG1.3.1>R10.811</ .~.~<DG1.3.1>R10.811</DG1.3.1><DG1.3.1>R10.811</DG1.3.1><DG1.3.1>R10.811</DG1.3. 1><D .~.~<DG1.3.1>R10.811</DG1.3.1><DG1.3.1> R10.811</DG1.3.1><DG1.3.1>R10.811</DG1.3.1><D .~.~<DG1.3.1>R10.811</DG1.3.1><DG1.3.1>R10.811</DG1.3.1><DG1.3.1>R10.811</DG1.3. 1><D .~.~<DG1.3.1>R10.811</DG1.3.1><DG1.3.1>R10.811</DG1.3.1><DG1.3.1> R10.811</DG1.3.1><D Total Protein 8.0 g/dL 6.3-8.2 [facility]) .~.~<DG1.3.1>R10.811</DG1.3.1><DG1.3.1>R10.811</DG1.3.1><DG1.3.1>R10.811</DG1.3. 1><D {SOURCE: R~.~.~<DG1.3.1>R10.811</DG1.3.1><DG1.3.1>R10.811</DG1.3.1><DG1.3.1>R10.811</DG1. 3.1><D .~.~<DG1.3.1> R10.811</DG1.3.1><DG1.3.1>R10.811</DG1.3.1><DG1.3.1>R10.811</DG1.3.1><D .~.~<DG1.3.1>R10.811</DG1.3.1><DG1.3.1>R10.811</DG1.3.1><DG1.3.1>R10.811</DG1.3. 1><D Is patient fasting? N~.~.~<DG1.3.1> R10.811</DG1.3.1><DG1.3.1>R10.811</DG1.3.1><DG1.3.1>R10.811</ .~.~<DG1.3.1>R10.811</DG1.3.1><DG1.3.1>R10.811</DG1.3.1><DG1.3.1>R10.811</DG1.3. 1><D .~.~<DG1.3.1>R10.811</DG1.3.1><DG1.3.1> R10.811</DG1.3.1><DG1.3.1>R10.811</DG1.3.1><D .~.~<DG1.3.1>R10.811</DG1.3.1><DG1.3.1>R10.811</DG1.3.1><DG1.3.1>R10.811</DG1.3. 1><D .~.~<DG1.3.1>R10.811</DG1.3.1><DG1.3.1>R10.811</DG1.3.1><DG1.3.1> R10.811</DG1.3.1><D Albumin 4.7 g/dL 3.9-5.0 [facility] ([facility]) .~.~<DG1.3.1>R10.811</DG1.3.1><DG1.3.1>R10.811</DG1.3.1><DG1.3.1>R10.811</DG1.3. 1><D {SOURCE: R~.~.~<DG1.3.1>R10.811</DG1.3.1><DG1.3.1>R10.811</DG1.3.1><DG1.3.1>R10.811</DG1. 3.1><D .~.~<DG1.3.1> R10.811</DG1.3.1><DG1.3.1>R10.811</DG1.3.1><DG1.3.1>R10.811</DG1.3.1><D .~.~<DG1.3.1>R10.811</DG1.3.1><DG1.3.1>R10.811</DG1.3.1><DG1.3.1>R10.811</DG1.3. 1><D Is patient fasting? N~.~.~<DG1.3.1> R10.811</DG1.3.1><DG1.3.1>R10.811</DG1.3.1><DG1.3.1>R10.811</ .~.~<DG1.3.1>R10.811</DG1.3.1><DG1.3.1>R10.811</DG1.3.1><DG1.3.1>R10.811</DG1.3. 1><D .~.~<DG1.3.1>R10.811</DG1.3.1><DG1.3.1> R10.811</DG1.3.1><DG1.3.1>R10.811</DG1.3.1><D .~.~<DG1.3.1>R10.811</DG1.3.1><DG1.3.1>R10.811</DG1.3.1><DG1.3.1>R10.811</DG1.3. 1><D .~.~<DG1.3.1>R10.811</DG1.3.1><DG1.3.1>R10.811</DG1.3.1><DG1.3.1> R10.811</DG1.3.1><D Globulin 3.3 GM/DL 2.4-3.2 Above high normal [facility] ([facility]) .~.~<DG1.3.1>R10.811</DG1.3.1><DG1.3.1>R10.811</DG1.3.1><DG1.3.1>R10.811</DG1.3. 1><D {SOURCE: R~.~.~<DG1.3.1>R10.811</DG1.3.1><DG1.3.1>R10.811</DG1.3.1><DG1.3.1>R10.811</DG1. 3.1><D .~.~<DG1.3.1> R10.811</DG1.3.1><DG1.3.1>R10.811</DG1.3.1><DG1.3.1>R10.811</DG1.3.1><D .~.~<DG1.3.1>R10.811</DG1.3.1><DG1.3.1>R10.811</DG1.3.1><DG1.3.1>R10.811</DG1.3. 1><D Is patient fasting? N~.~.~<DG1.3.1> R10.811</DG1.3.1><DG1.3.1>R10.811</DG1.3.1><DG1.3.1>R10.811</ .~.~<DG1.3.1>R10.811</DG1.3.1><DG1.3.1>R10.811</DG1.3.1><DG1.3.1>R10.811</DG1.3. 1><D .~.~<DG1.3.1>R10.811</DG1.3.1><DG1.3.1> R10.811</DG1.3.1><DG1.3.1>R10.811</DG1.3.1><D .~.~<DG1.3.1>R10.811</DG1.3.1><DG1.3.1>R10.811</DG1.3.1><DG1.3.1>R10.811</DG1.3. 1><D .~.~<DG1.3.1>R10.811</DG1.3.1><DG1.3.1>R10.811</DG1.3.1><DG1.3.1> R10.811</DG1.3.1><D Calcium 9.5 mg/dL 8.4-10.2 [facility] ([facility]) .~.~<DG1.3.1>R10.811</DG1.3.1><DG1.3.1>R10.811</DG1.3.1><DG1.3.1>R10.811</DG1.3. 1><D {SOURCE: R~.~.~<DG1.3.1>R10.811</DG1.3.1><DG1.3.1>R10.811</DG1.3.1><DG1.3.1>R10.811</DG1. 3.1><D .~.~<DG1.3.1> R10.811</DG1.3.1><DG1.3.1>R10.811</DG1.3.1><DG1.3.1>R10.811</DG1.3.1><D .~.~<DG1.3.1>R10.811</DG1.3.1><DG1.3.1>R10.811</DG1.3.1><DG1.3.1>R10.811</DG1.3. 1><D Is patient fasting? N~.~.~<DG1.3.1> R10.811</DG1.3.1><DG1.3.1>R10.811</DG1.3.1><DG1.3.1>R10.811</ .~.~<DG1.3.1>R10.811</DG1.3.1><DG1.3.1>R10.811</DG1.3.1><DG1.3.1>R10.811</DG1.3. 1><D .~.~<DG1.3.1>R10.811</DG1.3.1><DG1.3.1> R10.811</DG1.3.1><DG1.3.1>R10.811</DG1.3.1><D .~.~<DG1.3.1>R10.811</DG1.3.1><DG1.3.1>R10.811</DG1.3.1><DG1.3.1>R10.811</DG1.3. 1><D .~.~<DG1.3.1>R10.811</DG1.3.1><DG1.3.1>R10.811</DG1.3.1><DG1.3.1> R10.811</DG1.3.1><D A/G Ratio 1.4 0.8-2.0 [facility] ([facility]) .~.~<DG1.3.1>R10.811</DG1.3.1><DG1.3.1>R10.811</DG1.3.1><DG1.3.1>R10.811</DG1.3. 1><D {SOURCE: R~.~.~<DG1.3.1>R10.811</DG1.3.1><DG1.3.1>R10.811</DG1.3.1><DG1.3.1>R10.811</DG1. 3.1><D .~.~<DG1.3.1> R10.811</DG1.3.1><DG1.3.1>R10.811</DG1.3.1><DG1.3.1>R10.811</DG1.3.1><D .~.~<DG1.3.1>R10.811</DG1.3.1><DG1.3.1>R10.811</DG1.3.1><DG1.3.1>R10.811</DG1.3. 1><D Is patient fasting? N~.~.~<DG1.3.1> R10.811</DG1.3.1><DG1.3.1>R10.811</DG1.3.1><DG1.3.1>R10.811</ .~.~<DG1.3.1>R10.811</DG1.3.1><DG1.3.1>R10.811</DG1.3.1><DG1.3.1>R10.811</DG1.3. 1><D .~.~<DG1.3.1>R10.811</DG1.3.1><DG1.3.1> R10.811</DG1.3.1><DG1.3.1>R10.811</DG1.3.1><D .~.~<DG1.3.1>R10.811</DG1.3.1><DG1.3.1>R10.811</DG1.3.1><DG1.3.1>R10.811</DG1.3. 1><D .~.~<DG1.3.1>R10.811</DG1.3.1><DG1.3.1>R10.811</DG1.3.1><DG1.3.1> R10.811</DG1.3.1><D Sgot/Ast 22 U/L 5-40 [facility] ([facility]) .~.~<DG1.3.1>R10.811</DG1.3.1><DG1.3.1>R10.811</DG1.3.1><DG1.3.1>R10.811</DG1.3. 1><D {SOURCE: R~.~.~<DG1.3.1>R10.811</DG1.3.1><DG1.3.1>R10.811</DG1.3.1><DG1.3.1>R10.811</DG1. 3.1><D .~.~<DG1.3.1> R10.811</DG1.3.1><DG1.3.1>R10.811</DG1.3.1><DG1.3.1>R10.811</DG1.3.1><D .~.~<DG1.3.1>R10.811</DG1.3.1><DG1.3.1>R10.811</DG1.3.1><DG1.3.1>R10.811</DG1.3. 1><D Is patient fasting? N~.~.~<DG1.3.1> R10.811</DG1.3.1><DG1.3.1>R10.811</DG1.3.1><DG1.3.1>R10.811</ .~.~<DG1.3.1>R10.811</DG1.3.1><DG1.3.1>R10.811</DG1.3.1><DG1.3.1>R10.811</DG1.3. 1><D .~.~<DG1.3.1>R10.811</DG1.3.1><DG1.3.1> R10.811</DG1.3.1><DG1.3.1>R10.811</DG1.3.1><D .~.~<DG1.3.1>R10.811</DG1.3.1><DG1.3.1>R10.811</DG1.3.1><DG1.3.1>R10.811</DG1.3. 1><D .~.~<DG1.3.1>R10.811</DG1.3.1><DG1.3.1>R10.811</DG1.3.1><DG1.3.1> R10.811</DG1.3.1><D Total Bili Laboratory test result 0.2-1.3 [facility] ([facility]) .~.~<DG1.3.1>R10.811</DG1.3.1><DG1.3.1>R10.811</DG1.3.1><DG1.3.1>R10.811</DG1.3. 1><D {SOURCE: R~.~.~<DG1.3.1>R10.811</DG1.3.1><DG1.3.1>R10.811</DG1.3.1><DG1.3.1>R10.811</DG1. 3.1><D .~.~<DG1.3.1> R10.811</DG1.3.1><DG1.3.1>R10.811</DG1.3.1><DG1.3.1>R10.811</DG1.3.1><D .~.~<DG1.3.1>R10.811</DG1.3.1><DG1.3.1>R10.811</DG1.3.1><DG1.3.1>R10.811</DG1.3. 1><D Is patient fasting? N~.~.~<DG1.3.1> R10.811</DG1.3.1><DG1.3.1>R10.811</DG1.3.1><DG1.3.1>R10.811</ .~.~<DG1.3.1>R10.811</DG1.3.1><DG1.3.1>R10.811</DG1.3.1><DG1.3.1>R10.811</DG1.3. 1><D .~.~<DG1.3.1>R10.811</DG1.3.1><DG1.3.1> R10.811</DG1.3.1><DG1.3.1>R10.811</DG1.3.1><D .~.~<DG1.3.1>R10.811</DG1.3.1><DG1.3.1>R10.811</DG1.3.1><DG1.3.1>R10.811</DG1.3. 1><D .~.~<DG1.3.1>R10.811</DG1.3.1><DG1.3.1>R10.811</DG1.3.1><DG1.3.1> R10.811</DG1.3.1><D Alkaline Phos 128 U/L 38-126 Above high normal [facility] ([facility]) .~.~<DG1.3.1>R10.811</DG1.3.1><DG1.3.1>R10.811</DG1.3.1><DG1.3.1>R10.811</DG1.3. 1><D {SOURCE: R~.~.~<DG1.3.1>R10.811</DG1.3.1><DG1.3.1>R10.811</DG1.3.1><DG1.3.1>R10.811</DG1. 3.1><D .~.~<DG1.3.1> R10.811</DG1.3.1><DG1.3.1>R10.811</DG1.3.1><DG1.3.1>R10.811</DG1.3.1><D .~.~<DG1.3.1>R10.811</DG1.3.1><DG1.3.1>R10.811</DG1.3.1><DG1.3.1>R10.811</DG1.3. 1><D Is patient fasting? N~.~.~<DG1.3.1> R10.811</DG1.3.1><DG1.3.1>R10.811</DG1.3.1><DG1.3.1>R10.811</ .~.~<DG1.3.1>R10.811</DG1.3.1><DG1.3.1>R10.811</DG1.3.1><DG1.3.1>R10.811</DG1.3. 1><D .~.~<DG1.3.1>R10.811</DG1.3.1><DG1.3.1> R10.811</DG1.3.1><DG1.3.1>R10.811</DG1.3.1><D .~.~<DG1.3.1>R10.811</DG1.3.1><DG1.3.1>R10.811</DG1.3.1><DG1.3.1>R10.811</DG1.3. 1><D .~.~<DG1.3.1>R10.811</DG1.3.1><DG1.3.1>R10.811</DG1.3.1><DG1.3.1> R10.811</DG1.3.1><D SGPT/Alt 51 U/L 7-56 [facility] ([facility]) .~.~<DG1.3.1>R10.811</DG1.3.1><DG1.3.1>R10.811</DG1.3.1><DG1.3.1>R10.811</DG1.3. 1><D {SOURCE: R~.~.~<DG1.3.1>R10.811</DG1.3.1><DG1.3.1>R10.811</DG1.3.1><DG1.3.1>R10.811</DG1. 3.1><D .~.~<DG1.3.1> R10.811</DG1.3.1><DG1.3.1>R10.811</DG1.3.1><DG1.3.1>R10.811</DG1.3.1><D .~.~<DG1.3.1>R10.811</DG1.3.1><DG1.3.1>R10.811</DG1.3.1><DG1.3.1>R10.811</DG1.3. 1><D Is patient fasting? N~.~.~<DG1.3.1> R10.811</DG1.3.1><DG1.3.1>R10.811</DG1.3.1><DG1.3.1>R10.811</ .~.~<DG1.3.1>R10.811</DG1.3.1><DG1.3.1>R10.811</DG1.3.1><DG1.3.1>R10.811</DG1.3. 1><D .~.~<DG1.3.1>R10.811</DG1.3.1><DG1.3.1> R10.811</DG1.3.1><DG1.3.1>R10.811</DG1.3.1><D .~.~<DG1.3.1>R10.811</DG1.3.1><DG1.3.1>R10.811</DG1.3.1><DG1.3.1>R10.811</DG1.3. 1><D .~.~<DG1.3.1>R10.811</DG1.3.1><DG1.3.1>R10.811</DG1.3.1><DG1.3.1> R10.811</DG1.3.1><D Anion Gap 8.0 mmol/L 8.0-16.0 [facility]) .~.~<DG1.3.1>R10.811</DG1.3.1><DG1.3.1>R10.811</DG1.3.1><DG1.3.1>R10.811</DG1.3. 1><D {SOURCE: R~.~.~<DG1.3.1>R10.811</DG1.3.1><DG1.3.1>R10.811</DG1.3.1><DG1.3.1>R10.811</DG1. 3.1><D .~.~<DG1.3.1> R10.811</DG1.3.1><DG1.3.1>R10.811</DG1.3.1><DG1.3.1>R10.811</DG1.3.1><D .~.~<DG1.3.1>R10.811</DG1.3.1><DG1.3.1>R10.811</DG1.3.1><DG1.3.1>R10.811</DG1.3. 1><D Is patient fasting? N~.~.~<DG1.3.1> R10.811</DG1.3.1><DG1.3.1>R10.811</DG1.3.1><DG1.3.1>R10.811</ .~.~<DG1.3.1>R10.811</DG1.3.1><DG1.3.1>R10.811</DG1.3.1><DG1.3.1>R10.811</DG1.3. 1><D .~.~<DG1.3.1>R10.811</DG1.3.1><DG1.3.1> R10.811</DG1.3.1><DG1.3.1>R10.811</DG1.3.1><D .~.~<DG1.3.1>R10.811</DG1.3.1><DG1.3.1>R10.811</DG1.3.1><DG1.3.1>R10.811</DG1.3. 1><D .~.~<DG1.3.1>R10.811</DG1.3.1><DG1.3.1>R10.811</DG1.3.1><DG1.3.1> R10.811</DG1.3.1><D Age 35 yrs [facility] ([facility]) .~.~<DG1.3.1>R10.811</DG1.3.1><DG1.3.1>R10.811</DG1.3.1><DG1.3.1>R10.811</DG1.3. 1><D {SOURCE: R~.~.~<DG1.3.1>R10.811</DG1.3.1><DG1.3.1>R10.811</DG1.3.1><DG1.3.1>R10.811</DG1. 3.1><D .~.~<DG1.3.1> R10.811</DG1.3.1><DG1.3.1>R10.811</DG1.3.1><DG1.3.1>R10.811</DG1.3.1><D .~.~<DG1.3.1>R10.811</DG1.3.1><DG1.3.1>R10.811</DG1.3.1><DG1.3.1>R10.811</DG1.3. 1><D Is patient fasting? N~.~.~<DG1.3.1> R10.811</DG1.3.1><DG1.3.1>R10.811</DG1.3.1><DG1.3.1>R10.811</ .~.~<DG1.3.1>R10.811</DG1.3.1><DG1.3.1>R10.811</DG1.3.1><DG1.3.1>R10.811</DG1.3. 1><D .~.~<DG1.3.1>R10.811</DG1.3.1><DG1.3.1> R10.811</DG1.3.1><DG1.3.1>R10.811</DG1.3.1><D .~.~<DG1.3.1>R10.811</DG1.3.1><DG1.3.1>R10.811</DG1.3.1><DG1.3.1>R10.811</DG1.3. 1><D .~.~<DG1.3.1>R10.811</DG1.3.1><DG1.3.1>R10.811</DG1.3.1><DG1.3.1> R10.811</DG1.3.1><D Non-Aa GFR Laboratory test result [facility]) .~.~<DG1.3.1>R10.811</DG1.3.1><DG1.3.1>R10.811</DG1.3.1><DG1.3.1>R10.811</DG1.3. 1><D {SOURCE: R~.~.~<DG1.3.1>R10.811</DG1.3.1><DG1.3.1>R10.811</DG1.3.1><DG1.3.1>R10.811</DG1. 3.1><D .~.~<DG1.3.1> R10.811</DG1.3.1><DG1.3.1>R10.811</DG1.3.1><DG1.3.1>R10.811</DG1.3.1><D .~.~<DG1.3.1>R10.811</DG1.3.1><DG1.3.1>R10.811</DG1.3.1><DG1.3.1>R10.811</DG1.3. 1><D Is patient fasting? N~.~.~<DG1.3.1> R10.811</DG1.3.1><DG1.3.1>R10.811</DG1.3.1><DG1.3.1>R10.811</ .~.~<DG1.3.1>R10.811</DG1.3.1><DG1.3.1>R10.811</DG1.3.1><DG1.3.1>R10.811</DG1.3. 1><D .~.~<DG1.3.1>R10.811</DG1.3.1><DG1.3.1> R10.811</DG1.3.1><DG1.3.1>R10.811</DG1.3.1><D .~.~<DG1.3.1>R10.811</DG1.3.1><DG1.3.1>R10.811</DG1.3.1><DG1.3.1>R10.811</DG1.3. 1><D .~.~<DG1.3.1>R10.811</DG1.3.1><DG1.3.1>R10.811</DG1.3.1><DG1.3.1> R10.811</DG1.3.1><D Afr Amer GFR Laboratory test result [facility] ([facility]) .~.~<DG1.3.1>R10.811</DG1.3.1><DG1.3.1>R10.811</DG1.3.1><DG1.3.1>R10.811</DG1.3. 1><D {SOURCE: R~.~.~<DG1.3.1>R10.811</DG1.3.1><DG1.3.1>R10.811</DG1.3.1><DG1.3.1>R10.811</DG1. 3.1><D .~.~<DG1.3.1> R10.811</DG1.3.1><DG1.3.1>R10.811</DG1.3.1><DG1.3.1>R10.811</DG1.3.1><D .~.~<DG1.3.1>R10.811</DG1.3.1><DG1.3.1>R10.811</DG1.3.1><DG1.3.1>R10.811</DG1.3. 1><D Is patient fasting? N~.~.~<DG1.3.1> R10.811</DG1.3.1><DG1.3.1>R10.811</DG1.3.1><DG1.3.1>R10.811</ .~.~<DG1.3.1>R10.811</DG1.3.1><DG1.3.1>R10.811</DG1.3.1><DG1.3.1>R10.811</DG1.3. 1><D .~.~<DG1.3.1>R10.811</DG1.3.1><DG1.3.1> R10.811</DG1.3.1><DG1.3.1>R10.811</DG1.3.1><D .~.~<DG1.3.1>R10.811</DG1.3.1><DG1.3.1>R10.811</DG1.3.1><DG1.3.1>R10.811</DG1.3. 1><D .~.~<DG1.3.1>R10.811</DG1.3.1><DG1.3.1>R10.811</DG1.3.1><DG1.3.1> R10.811</DG1.3.1><D ID Date Data Source [id number] 12/28/2020 08:16:00 AM EST [facility] Name Value Range Interpretation Code Description Data Shona rce(s) Supporting Document(s) Nuclear Ab [Titer] in Serum by Immunofluorescence Positive A [facility] Negative <1:80 Borderline 1:80 Positive >1:80 Nuclear Ab Pattern Homogenous [Titer] in Serum 1:160 H [facility] Note: COMMENT [facility] A positive ENZO result may occur in healt hy individuals (lowtiter) or be associated with a variety of diseases. Seeinterpretation chart which is not all inclusive:Pattern Antigen Detected Suggested Disease Association Homogeneous DNA(ds,ss), SLE - High titers Nucleosomes, Histones Drug-induced SLE Speckled Sm, COMM[employer]IST, SCL-70, SLE,MCTD,PSS (diffuse form), SS-A/SS-B Sjogrens Nucleolar SCL-70, PM-1/SCL High titers Scleroderma, PM/DM Centromere Centromere PSS (limited form) w/Crest syndrome variable Nuclear Dot [id number] Primary Biliary Cirrhosis Nuclear GP210, Primary Biliary CirrhosisMembrane freda A,B,C ID Date Data Source [id number] 12/28/2020 08:04:00 AM EST [facility] Name Value Range Interpretation Code Description Data Shona rce(s) Supporting Document(s) Helicobacter pylori [Presence] in Stomach by urea breath test Ne gative Negative [facility] ID Date Data Source [id number] 12/25/2020 07:51:00 AM EST [facility] ([facility]) Name Value Range Interpretation Code Description Data Shona rce(s) Supporting Document(s) C reactive protein [Mass/volume] in Serum or Plasma by High sensitivity method 4.65 mg/L 1.00-3.00 Above high normal [facility] ([facility]) .~.~<DG1.3.1>R10.811</DG1.3.1><DG1.3.1>R10.811</DG1.3.1><DG1.3.1>R10.811</DG1.3. 1><D {SOURCE: R~.~.~<DG1.3.1>R10.811</DG1.3.1><DG1.3.1>R10.811</DG1.3.1><DG1.3.1>R10.811</DG1. 3.1><D .~.~<DG1.3.1> R10.811</DG1.3.1><DG1.3.1>R10.811</DG1.3.1><DG1.3.1>R10.811</DG1.3.1><D .~.~<DG1.3.1>R10.811</DG1.3.1><DG1.3.1>R10.811</DG1.3.1><DG1.3.1>R10.811</DG1.3. 1><D Is patient fasting? N~.~.~<DG1.3.1> R10.811</DG1.3.1><DG1.3.1>R10.811</DG1.3.1><DG1.3.1>R10.811</ .~.~<DG1.3.1>R10.811</DG1.3.1><DG1.3.1>R10.811</DG1.3.1><DG1.3.1>R10.811</DG1.3. 1><D .~.~<DG1.3.1>R10.811</DG1.3.1><DG1.3.1> R10.811</DG1.3.1><DG1.3.1>R10.811</DG1.3.1><D .~.~<DG1.3.1>R10.811</DG1.3.1><DG1.3.1>R10.811</DG1.3.1><DG1.3.1>R10.811</DG1.3. 1><D Amylase [Enzymatic activity/volume] in Serum or Plasma 38 U/L 30- 110 [facility]) .~.~<DG1.3.1>R10.811</DG1.3.1><DG1.3.1>R10.811</DG1.3.1><DG1.3.1>R10.811</DG1.3. 1><D {SOURCE: R~.~.~<DG1.3.1>R10.811</DG1.3.1><DG1.3.1>R10.811</DG1.3.1><DG1.3.1>R10.811</DG1. 3.1><D .~.~<DG1.3.1> R10.811</DG1.3.1><DG1.3.1>R10.811</DG1.3.1><DG1.3.1>R10.811</DG1.3.1><D .~.~<DG1.3.1>R10.811</DG1.3.1><DG1.3.1>R10.811</DG1.3.1><DG1.3.1>R10.811</DG1.3. 1><D Is patient fasting? N~.~.~<DG1.3.1> R10.811</DG1.3.1><DG1.3.1>R10.811</DG1.3.1><DG1.3.1>R10.811</ .~.~<DG1.3.1>R10.811</DG1.3.1><DG1.3.1>R10.811</DG1.3.1><DG1.3.1>R10.811</DG1.3. 1><D .~.~<DG1.3.1>R10.811</DG1.3.1><DG1.3.1> R10.811</DG1.3.1><DG1.3.1>R10.811</DG1.3.1><D .~.~<DG1.3.1>R10.811</DG1.3.1><DG1.3.1>R10.811</DG1.3.1><DG1.3.1>R10.811</DG1.3. 1><D ID Date Data Source [id number] 12/27/2020 08:30:00 AM [facility] Value Range Interpretation Code Description Data Shona rce(s) Supporting Document(s) Alpha 1 antitrypsin [Mass/volume] in Serum or Plasma 140 mg/dL 95-16 4 [facility] ID Date Data Source [id number] 12/25/2020 09:13:00 AM EST [facility] Name Value Range Interpretation Code Description Data Shona rce(s) Supporting Document(s) Erythrocyte sedimentation rate by Westergren method 1 mm/hr 0 - 15 [facility] SED RATE REENTER 1 [facility] ID Date Data Source [id number] 12/25/2020 09:07:00 AM [facility] Name Value Range Interpretation Code Description Data Shona rce(s) Supporting Document(s) C reactive protein [Mass/volume] in Serum or Plasma by High sensitivity method 4.65 MG/L 1.00 - 3.00 H [facility] HS-CRP CUT-OFF: RELATIVE RISK: <1.0 mg/L Low 1.0 - 3.0 mg/L Average >3.0 mg/L High Optimally, the average of HS-CRP results repeated two weeks apart should be used for risk assessment. ID Date Data Source [id number] 12/25/2020 09:07:00 AM [facility] Name Value Range Interpretation Code Description Data Shona rce(s) Supporting Document(s) COMPREHENSIVE METABOLIC PANEL [facility] COMPREHENSIVE METABOLIC PANEL Sodium [Moles/volume] in Serum or Plasma 136 mEq/L 134 - 153 [facility] Potassium [Moles/volume] in Serum or Plasma 4.1 mEq/L 3.6 - 5.0 [facility] Chloride [Moles/volume] in Serum or Plasma 100 mEq/L 98 - 107 [facility] Carbon dioxide, total [Moles/volume] in Serum or Plasma 28 MEQ/L 22 - 30 [facility] Glucose [Mass/volume] in Serum or Plasma 98 MG/DL 70 - 99 [facility] BUN 17 [facility]DL 7 [facility] Creat[facility] [Mass/volume] in Serum or Plasma 0.9 MG/DL 0.7 - 1.5 [facility] BUN/CREAT 19 8 - 27 [facility] al Protein [Mass/volume] in Serum or Plasma 8.0 G/DL 6.3 - 8.2 [facility] Albumin [Mass/volume] in Serum or Plasma 4.7 G/DL 3.9 - 5.0 [facility] Globulin [Mass/volume] in Serum by calculation 3.3 GM/DL 2.4 - 3.2 H [facility] A/G RATIO 1.4 0.8 - 2.0 [facility] al Calcium [Mass/volume] in Serum or Plasma 9.5 MG/DL 8.4 - 10.2 [facility] Bilirubin.total [Mass/volume] in Serum or Plasma <0.7 MG/DL 0.2 - 1.3 [facility] Alkaline phosphatase [Enzymatic activity/volume] in Serum or Plasma 128 U/L 38 - 126 H [facility] Aspartate aminotransferase [Enzymatic activity/volume] in Serum or Plasma 22 U/L 5 - 40 [facility] Alanine aminotransferase [Enzymatic activity/volume] in Seru m or Plasma 51 U/L 7 - 56 [facility] Anion gap 3 in Serum or Plasma 8.0 mmol/L 8.0 - 16.0 [facility] AGE 35 yrs [facility] al NON-AA GFR >60 mL/min [facility] ital AFR AMER GFR >60 mL/min [facility] Male GFR In terprentation 20-49 yrs >60 mL/min Normal 50-59 yrs >56 mL/min Normal 60-69 yrs >49 mL/min Normal 70-79yrs >42 mL/min Normal 80 and above >35 mL/min Normal Female GFR Interpretation 20-39 yrs >60 mL/min Normal 40-49 yrs >58 mL/min Normal 50-59 yrs >51 mL/min Normal 60-69 yrs >45 mL/min Normal 70-79 yrs >39 mL/min Normal 80 and above >32 mL/min Normal ID Date Data Source [id number] 12/25/2020 09:04:00 AM [facility] Name Value Range Interpretation Code Description Data Shona rce(s) Supporting Document(s) Amylase [Enzymatic activity/volume] in Serum or Plasma 38 U/L 30 - 110 [facility] ID Date Data Source [id number] 12/25/2020 09:04:00 AM [facility] Name Value Range Interpretation Code Description Data Shona rce(s) Supporting Document(s) Lipase [Enzymatic activity/volume] in Serum or Plasma 31 U/L 13 - 60 [facility] ID Date Data Source [id number] 12/25/2020 09:03:00 AM EST [facility] Name Value Range Interpretation Code Description Data Shona rce(s) Supporting Document(s) [facility] COLOR yellow NORMAL: Yellow [facility] CLARITY clear NORMAL: Clear [facility] Specific gravity of Urine by Test strip 1.015 1.001 - 1.030 [facility] pH 7 5 - 9 [facility] Glucose [Mass/volume] in Urine by Test strip NORM NORMAL: Negat [facility] Bilirubin.total [Presence] in Urine by Test strip NEG NORMAL: Negative [facility] Ketones [Presence] in Urine by Test strip NEG NORMAL: Negative [facility] Protein [Mass/volume] in Urine by Test strip NEG NORMAL: Negat [facility] Nitrite [Presence] in Urine by Test strip NEG NORMAL: Negative [facility] BLOOD NEG NORMAL: Negative [facility] Leukocyte esterase [Presence] in Urine by Test strip NEG ROSELINE L: Negative [facility] Urobilinogen [Mass/volume] in Urine by Test strip NOR less german n 1.0 mg/dL [facility] MICROSCOPIC Not Indicate [facility] ID Date Data Source [id number] 12/25/2020 08:13:00 AM [facility] Name Value Range Interpretation Code Description Data Shona rce(s) Supporting Document(s) CBC W/AUTOMATED DIFF [facility] COMPLETE BLOOD COUNT Leukocytes [#/volume] in Blood by Automated count 6.8 10^3/uL 4.2 - 1 1.0 [facility] Erythrocytes [#/volume] in Blood by Automated count 6.02 10^6/uL 4. 50 - 6.30 [facility] Hemoglobin [Mass/volume] in Blood 17.5 g/dL 14.0 - 16.0 H [facility] Hematocrit [Volume Fraction] of Blood by Automated count 48.7 % 4 1.0 - 51.0 [facility] Erythrocyte mean corpuscular volume [Entitic volume] by Auto mated count 80.9 fL 80.0 - 94.0 [facility] Erythrocyte mean corpuscular hemoglobin [Entitic mass] by Automated count 29.1 pg 27.0 - 34.0 [facility] Erythrocyte mean corpuscular hemoglobin concentration [Mass/volume] by Automated count 35.9 g/dL 31.0 - 36.0 [facility] Erythrocyte distribution width [Ratio] by Automated count 12.0 % 11.5 - 14.8 [facility] Platelets [#/volume] in Blood by Automated count 322 10^3/uL 150 - 45 0 [facility] Platelet mean volume [Entitic volume] in Blood by Automated count 9.1 fL 7.4 - 10.4 [facility] Neutrophils/100 leukocytes in Blood by Automated count 59.8 % 37. 0 - 80.0 [facility] Lymphocytes/100 leukocytes in Blood by Manual count 29.5 % 25.0 - 40.0 [facility] Monocytes/100 leukocytes in Blood by Automated count 4.2 % 3.0 - 8.0 [facility] Eosinophils/100 leukocytes in Blood by Automated count 5.3 % 0.0 - 7.0 [facility] Basophils/100 leukocytes in Blood by Automated count 0.9 % 0.0 - 2.0 [facility] %IG 0.3 % 0.0 - 0.0 [facility] %NRBC 0.0 % 0.0 - 0.0 [facility] al Neutrophils [#/volume] in Blood by Automated count 4.09 10^3/uL 2.00 - 6.90 [facility] Lymphocytes [#/volume] in Blood by Automated count 2.02 10^3/uL 0.60 - 3.40 [facility] Monocytes [#/volume] in Blood by Automated count 0.29 10^3/uL 0.00 - 0.90 [facility] Eosinophils [#/volume] in Blood by Automated count 0.36 10^3/uL 0.00 - 0.70 [facility] Basophils [#/volume] in Blood by Automated count 0.06 10^3/uL 0.00 - 0.20 [facility] #IG 0.02 10^3/uL 0.00 - 0.10 [facility] #NRBC 0.00 10^3/uL 0.00 - 0.00 [facility] MANUAL DIFF NOT INDICATED [facility] RBC MORPH NOT INDICATED [facility] ID Date Data Source [id number] 12/24/2020 09:56:00 AM EST [facility] ([facility]) Name Value Range Interpretation Code Description Data Shona rce(s) Supporting Document(s) Chest Xray 2 Views Laboratory test result [facility] ([facility]) US Gallbladder Laboratory test result [facility] ([facility]) ID Date Data Source [id number] 10/31/2020 11:11:00 AM EST [facility] ([facility]) Name Value Range Interpretation Code Description Data Shona rce(s) Supporting Document(s) Chest Xray 2 Views Laboratory test result [facility] ([facility]) Procedure Social History Code Duration Value Status Description Data Source(s ) Smoking 07/23/2021 12:00:00 AM EDT Never Smoker completed Never S moker eCW1 ([facility]) Smoking 07/23/2021 12:00:00 AM EDT Never Smoker completed Never S moker eCW1 ([facility]) Smoking 07/23/2021 12:00:00 AM EDT Never Smoker completed Never S moker eCW1 ([facility]) Smoking 07/23/2021 12:00:00 AM EDT Never Smoker completed Never S moker eCW1 ([facility]) Vital Signs ID Date Data Source UNK Name Value Range Interpretation Code Description Data Source(s) Systolic blood pressure 118 mm[Hg] 118 mm[Hg] M EDENT ([facility]) Diastolic blood pressure 72 mm[Hg] 72 mm[Hg] [facility] ([facility]) Heart rate 78 /min 78 /min [facility] ([facility]) Body temperature 97.5 [degF] 97.5 [degF] [facility] ([facility]) Respiratory rate 18 /min 18 /min [facility] ( [facility]) Oxygen saturation in Arterial blood by Pulse oximetry 98 % 98 % [facility] ([facility]) Body weight 216.00 [lb_av] 216.00 [lb_av] MEDEN T ([facility]) Body weight 97.978 kg 97.978 kg [facility] ([facility]) Body height 71 [in_i] 71 [in_i] [facility] ([facility]) 5'11" Body mass index (BMI) [Ratio] 30.1 kg/m2 30.1 k g/m2 [facility] ([facility]) Body surface area Derived from formula 2.18 m2 2.18 m2 [facility] ([facility]) Body weight 224.0 [lb_av] 224.0 [lb_av] eCW1 ([facility]) Body weight 101.61 kg 101.61 kg W1 ([facility]) Body height 70 [in_i] 70 [in_i] eCW1 ([facility]) Body mass index (BMI) [Ratio] 32.14 kg/m2 32.14 kg/m2 W1 ([facility]) Heart rate 80 /min 80 /min eCW1 ([facility]) Respiratory rate 20 /min 20 /min eCW1 ([facility]) Body temperature 98.0 [degF] 98.0 [degF] eCW1 ( [facility]) Systolic blood pressure 126 mm[Hg] 126 mm[Hg] e CW1 ([facility]) Diastolic blood pressure 88 mm[Hg] 88 mm[Hg] eCW1 ([facility]) Systolic blood pressure 128 mm[Hg] 128 mm[Hg] M EDENT ([facility]) Diastolic blood pressure 66 mm[Hg] 66 mm[Hg] [facility] ([facility]) Heart rate 78 /min 78 /min [facility] ([facility]) Body temperature 97.2 [degF] 97.2 [degF] [facility] ([facility]) Respiratory rate 18 /min 18 /min [facility] ( [facility]) Oxygen saturation in Arterial blood by Pulse oximetry 96 % 96 % [facility] ([facility]) Body weight 231.00 [lb_av] 231.00 [lb_av] MEDEN T ([facility]) Body weight 104.782 kg 104.782 kg [facility] ([facility]) Body height 71 [in_i] 71 [in_i] [facility] ([facility]) 5'11" Body mass index (BMI) [Ratio] 32.2 kg/m2 32.2 k g[facility]2 [facility] Body surface area Derived from formula 2.24 m2 2.24 m2 [facility] ([facility]) Systolic blood pressure 122 mm[Hg] 122 mm[Hg] M EDENT ([facility]) Diastolic blood pressure 80 mm[Hg] 80 mm[Hg] [facility] ([facility]) Heart rate 69 /min 69 /min [facility] ([facility]) Body temperature 96.2 [degF] 96.2 [degF] [facility] ([facility]) Respiratory rate 18 /min 18 /min [facility] ( [facility]) Oxygen saturation in Arterial blood by Pulse oximetry 98 % 98 % [facility] ([facility]) Body weight 232.00 [lb_av] 232.00 [lb_av] MEDEN T ([facility]) Body weight 105.235 kg 105.235 kg [facility] ([facility]) Body height 71 [in_i] 71 [in_i] [facility] ([facility]) 5'11" Body mass index (BMI) [Ratio] 32.4 kg/m2 32.4 k g/m2 [facility] ([facility]) Body surface area Derived from formula 2.25 m2 2.25 m2 [facility] ([facility]) Systolic blood pressure 132 mm[Hg] 132 mm[Hg] M EDENT ([facility]) Diastolic blood pressure 72 mm[Hg] 72 mm[Hg] [facility] ([facility]) Heart rate 72 /min 72 /min [facility] ([facility]) Body temperature 97.5 [degF] 97.5 [degF] [facility] ([facility]) Respiratory rate 18 /min 18 /min [facility] ( [facility]) Oxygen saturation in Arterial blood by Pulse oximetry 98 % 98 % [facility] ([facility]) Body weight 234.00 [lb_av] 234.00 [lb_av] MEDEN T ([facility]) Body weight 106.142 kg 106.142 kg [facility] ([facility]) Body height 71 [in_i] 71 [in_i] [facility] ([facility]) 5'11" Body mass index (BMI) [Ratio] 32.6 kg/m2 32.6 k g/m2 [facility] ([facility]) Body surface area Derived from formula 2.25 m2 2.25 m2 [facility] ([facility]) Systolic blood pressure 142 mm[Hg] 142 mm[Hg] M EDENT ([facility]) Diastolic blood pressure 82 mm[Hg] 82 mm[Hg] [facility] ([facility]) Heart rate 94 /min 94 /min [facility] ([facility]) Oxygen saturation in Arterial blood by Pulse oximetry 97 % 97 % [facility] ([facility]) Body height 71 [in_i] 71 [in_i] [facility] ([facility]) 5'11" Body weight 232.00 [lb_av] 232.00 [lb_av] MEDEN T ([facility]) Body mass index (BMI) [Ratio] 32.4 kg/m2 32.4 k g/m2 [facility] ([facility]) Body temperature 98.1 [degF] 98.1 [degF] [facility] ([facility]) Systolic blood pressure 134 mm[Hg] 134 mm[Hg] M EDENT ([facility]) Diastolic blood pressure 80 mm[Hg] 80 mm[Hg] [facility] ([facility]) Heart rate 72 /min 72 /min [facility] ([facility]) Body temperature 98.4 [degF] 98.4 [degF] [facility] ([facility]) Respiratory rate 18 /min 18 /min [facility] ( [facility]) Oxygen saturation in Arterial blood by Pulse oximetry 98 % 98 % [facility] ([facility]) Body weight 234.00 [lb_av] 234.00 [lb_av] [facility] T ([facility]) Body weight 106.142 kg 106.142 kg [facility] ([facility]) Body height 71 [in_i] 71 [in_i] [facility] ([facility]) 5'11" Body mass index (BMI) [Ratio] 32.6 kg/m2 32.6 k g/m2 [facility] ([facility]) Body surface area Derived from formula 2.25 m2 2.25 m2 [facility] ([facility])
[2021-10-04] MEDS ORDERED: propofoL 200 MG/20 ML VIAL As Ordered ONE ×2 (15:24→15:41)
[2021-10-04] MEDS ORDERED: LIDOCAINE 2% 100MG/5ML SDV (FOR ANES.) As Ordered ONE (15:24)
--- NOTE | 2021-10-04 16:09 | ROOR ---
Patient Name: Epifanio Quiles Procedure Date: 10/04/2021 3:26 PM Date of : 1985 Age: 36 Room: [facility] Gender: Male Note Status: Finalized Procedure: Colonoscopy Indications: Hematochezia, Fecal incontinence Providers: Jonathan Grey MD Referring MD: KENNY MONTEJO MD Requesting Provider: Medicines: Monitored Anesthesia Care Complications: No immediate complications. Procedure: Pre-Anesthesia Assessment: - Prior to the procedure, a History and Physical was performed, and patient medications and allergies were reviewed. The patient is competent. The risks and benefits of the procedure and the sedation options and risks were discussed with the patient. All questions were answered and informed consent was obtained. Patient identification and proposed procedure were verified by the physician, the nurse and the anesthesiologist in the procedure room. Mental Status Examination: alert and oriented. Airway Examination: normal oropharyngeal airway and neck mobility. Respiratory Examination: clear to auscultation. CV Examination: normal. Prophylactic Antibiotics: The patient does not require prophylactic antibiotics. Prior Anticoagulants: The patient has taken no previous anticoagulant or antiplatelet agents. ASA Grade Assessment: II - A patient with mild systemic disease. After reviewing the risks and benefits, the patient was deemed in satisfactory condition to undergo the procedure. The anesthesia plan was to use monitored anesthesia care (MAC). Immediately prior to administration of medications, the patient was re-assessed for adequacy to receive sedatives. The heart rate, respiratory rate, oxygen saturations, blood pressure, adequacy of pulmonary ventilation, and response to care were monitored throughout the procedure. The physical status of the patient was re-assessed after the procedure. The Colonoscope was introduced through the anus and advanced to the terminal ileum, with identification of the appendiceal orifice and IC valve. The colonoscopy was performed without difficulty. The patient tolerated the procedure well. The quality of the bowel preparation was good. The terminal ileum, ileocecal valve, appendiceal orifice, and rectum were photographed. Scope insertion time was 2 minutes. Scope withdrawal time was 9 minutes. The total duration of the procedure was 11 minutes. Findings: The perianal and digital rectal examinations were normal. Pertinent negatives include normal sphincter tone and no palpable rectal lesions. The terminal ileum appeared normal. Non-bleeding external and internal hemorrhoids were found during retroflexion. The hemorrhoids were medium-sized. Normal mucosa was found in the entire colon. Biopsies for histology were taken with a cold forceps from the left colon and rectosigmoid colon for evaluation of microscopic colitis. Verification of patient identification for the specimen was done by the physician and nurse using the patient's name, date and medical record number. Estimated blood loss was minimal. Impression: - The examined portion of the ileum was normal. - Non-bleeding external and internal hemorrhoids. - Normal mucosa in the entire examined colon. Biopsied. Recommendation: - Patient has a contact number available for emergencies. The signs and symptoms of potential delayed complications were discussed with the patient. Return to normal activities tomorrow. Written discharge instructions were provided to the patient. - High fiber diet. - Continue present medications. - Use original regular Metamucil one teaspoon PO daily. - Await pathology results. - Repeat colonoscopy in 10 years for screening purposes. - Telephone GI clinic for pathology results in 2 weeks. - Return to GI clinic if persistent symptoms or new symptoms. - Return to primary care physician. Procedure Code(s): --- Professional --- 69467, Colonoscopy, flexible; with biopsy, single or multiple Diagnosis Code(s): --- Professional --- K64.8, Other hemorrhoids K92.1, Melena (includes Hematochezia) R15.9, Full incontinence of feces CPT copyright 2019 [employer]. All rights reserved. The codes documented in this report are preliminary and upon services rep review may be revised to meet current compliance requirements. Jonathan Grey MD Jonathan Grey MD 10/04/2021 4:08:55 PM Electronically signed by Jonathan Grey MD Number of Addenda: 0 Note Initiated On: 10/04/2021 3:26 PM Estimated Blood Loss: Estimated blood loss was minimal.
[2021-10-04 16:20] VITALS: BP 120/75
== END 2021-10-04 16:27 | disposition home or self-care (01) ==
LOC: M OPP 13:01
PROVIDERS: ATTEND Internal Medicine Gastroenterology
DX: K92.1 Melena (principal); K64.8 Other hemorrhoids; R15.9 Full incontinence of feces; K63.9 Disease of intestine, unspecified; J44.9 Chronic obstructive pulmonary disease, unspecified; R12 Heartburn; Z79.899 Other long term (current) drug therapy; Z88.0 Allergy status to penicillin